=== PATIENT | male | born 1960 | race Caucasian/White ===

== ENCOUNTER → 2017-12-23 13:12 | Outpatient (CLI) | payer OTHER, MEDICAID, SELFPAY | PROVIDERS: PCP Internal Medicine; Visit Provider Internal Medicine Medical Oncology | DX: C61 Malignant neoplasm of prostate (principal) | CPT/HCPCS: 36415; 84153 ==

== ENCOUNTER → 2018-02-18 09:08 | Outpatient (CLI) | payer OTHER, MEDICAID, SELFPAY ==
[2018-02-18 10:36] LABS: Hemoglobin A1C% w Est Avg Glu 5.9 % (4.0-6.0)
== END ==
PROVIDERS: Family Provider Internal Medicine; PCP Internal Medicine; Visit Provider Student in an Organized Health Care Education/Training Program
DX: E11.9 Type 2 diabetes mellitus without complications (principal)
CPT/HCPCS: 36415; 83036

== ENCOUNTER → 2018-03-07 15:03 | Outpatient (CLI) | payer OTHER, MEDICAID, SELFPAY | PROVIDERS: Family Provider Internal Medicine; PCP Internal Medicine; Visit Provider Internal Medicine Medical Oncology | DX: C61 Malignant neoplasm of prostate (principal) | CPT/HCPCS: 36415; 84153 ==

== ENCOUNTER → 2018-05-23 09:20 | Outpatient (CLI) | payer OTHER, MEDICAID, SELFPAY ==
[2018-05-23 10:09] LABS: Add Manual Diff / Slide Review NO; Basophils Percent Auto 0.4 % (0-2); Eosinophils Percent Auto 0.7 % (2-4); Hematocrit 38.2 % (41-53); Hemoglobin 11.9 g/dL (13.5-17.5); Lymphocytes Percent Auto 18.6 % (25-40); Mean Corpuscular HGB Conc 31.1 % (30-36); Mean Corpuscular Volume 67.6 fL (80-100); Monocytes Percent Auto 10.2 % (3-14); Neutrophils Absolute Auto 6400 /uL (3000-5900); Neutrophils Percent Auto 70.1 % (50-75); Platelet Count 250 X10^3/uL (150-400); Red Blood Cell Count 5.66 X10^6/uL (4.5-5.9); Red Cell Distribution Width 19.1 % (11.6-14.8); White Blood Cell Count 9.1 X10^3/uL (4.5-11.0)
[2018-05-23 10:14] LABS: BUN Creatinine Ratio 22.9 (6-22); Blood Urea Nitrogen 16 mg/dL (9-20); Calcium 8.3 mg/dL (8.4-10.2); Carbon Dioxide 26 mmol/L (22-32); Chloride 95 mmol/L (98-107); Estimated Glomerular Filt Rate > 60.0 mL/min (>60); Glucose 132 mg/dL (70-100); HEMOLYSIS < 15 (0-50); Potassium 4.8 mmol/L (3.4-5.1); Sodium 135 mmol/L (137-145)
[2018-05-23 10:22] LABS: B Type Natriuretic Peptide < 100.0 (<100)
[2018-05-23 10:24] LABS: Hemoglobin A1C% w Est Avg Glu 5.8 % (4.0-6.0)
[2018-05-23 10:48] LABS: Anisocytosis 1+; Hypochromasia 2+; Microcytosis 1+
== END ==
PROVIDERS: Family Provider Internal Medicine; PCP Internal Medicine; Visit Provider Internal Medicine
DX: I48.2 Chronic atrial fibrillation (principal); E11.9 Type 2 diabetes mellitus without complications; I50.32 Chronic diastolic (congestive) heart failure
CPT/HCPCS: 36415; 80048; 83036; 83880; 85025

== ENCOUNTER → 2018-06-15 09:37 | Outpatient (CLI) | payer OTHER, MEDICAID, SELFPAY | PROVIDERS: Family Provider Internal Medicine; PCP Internal Medicine; Visit Provider Internal Medicine Medical Oncology | DX: C61 Malignant neoplasm of prostate (principal) | CPT/HCPCS: 36415; 84153 ==

== ENCOUNTER → 2018-06-27 09:14 | Outpatient (CLI) | payer OTHER, MEDICAID, SELFPAY ==
[2018-06-27 09:38] LABS: Add Manual Diff / Slide Review NO; Basophils Percent Auto 0.5 % (0-2); Eosinophils Percent Auto 0.8 % (2-4); Hematocrit 38.5 % (41-53); Hemoglobin 11.8 g/dL (13.5-17.5); Lymphocytes Percent Auto 18.1 % (25-40); Mean Corpuscular HGB Conc 30.7 % (30-36); Mean Corpuscular Hemoglobin 20.9 PG (26-34); Monocytes Percent Auto 11.2 % (3-14); Neutrophils Absolute Auto 6400 /uL (3000-5900); Neutrophils Percent Auto 69.4 % (50-75); Platelet Count 274 X10^3/uL (150-400); Red Blood Cell Count 5.66 X10^6/uL (4.5-5.9); Red Cell Distribution Width 20.1 % (11.6-14.8); White Blood Cell Count 9.3 X10^3/uL (4.5-11.0)
[2018-06-27 10:03] LABS: Hypochromasia 1+; Microcytosis 3+; Ovalocytes 1+
[2018-06-27 10:08] LABS: HEMOLYSIS < 15 (0-50); Iron 26 ug/dL (49-181)
[2018-06-27 10:19] LABS: Percent Iron Saturation 7 % (20-50); Total Iron Binding Capacity 368 ug/dL (261-462); Transferrin 311 mg/dL (206-381)
[2018-06-27 10:41] LABS: Ferritin 3.9 ng/mL (17.9-464)
== END ==
PROVIDERS: Family Provider Internal Medicine; PCP Internal Medicine; Visit Provider Internal Medicine
DX: D50.0 Iron deficiency anemia secondary to blood loss (chronic) (principal)
CPT/HCPCS: 36415; 82728; 83540; 83550; 85025

== ENCOUNTER → 2018-08-17 12:27 | Outpatient (CLI) | payer OTHER, MEDICAID, SELFPAY ==
--- NOTE | 2018-08-17 | DI.US.S_ITS ---
PROCEDURE: US PERIPH VENOUS LOW EXTREM RT INDICATIONS: RIGHT LOWER EXTREMITY PAIN AND SWELLING TECHNIQUE: Real-time imaging, as well as color and pulse Doppler interrogation, were performed of the lower extremity deep veins from the inguinal ligament to the popliteal fossa. COMPARISON: None. FINDINGS: The deep veins are normally compressible, and free of intraluminal thrombus. Color and pulse Doppler demonstrate normal phasic intraluminal flow. There is normal augmentation response to distal compression maneuver. IMPRESSION: No evidence for deep venous thrombosis. Dictated by: Rick Kong M.D. on 08/17/2018 at 15:01 Approved by: Rick Kong M.D. on 08/17/2018 at 15:01
== END ==
PROVIDERS: Family Provider Internal Medicine; PCP Internal Medicine; Visit Provider Internal Medicine
DX: M79.604 Pain in right leg (principal); M79.89 Other specified soft tissue disorders
CPT/HCPCS: 93971

== ENCOUNTER → 2018-08-31 10:04 | Outpatient (CLI) | payer OTHER, MEDICAID, SELFPAY ==
[2018-08-31 10:37] LABS: Add Manual Diff / Slide Review NO; Basophils Absolute Auto 0 /uL (0-100); Basophils Percent Auto 0.4 % (0-2); Eosinophils Absolute Auto 100 /uL (0-450); Eosinophils Percent Auto 0.9 % (2-4); Hematocrit 38.5 % (41-53); Hemoglobin 11.9 g/dL (13.5-17.5); Lymphocytes Absolute Auto 1300 /uL (1100-4500); Lymphocytes Percent Auto 14.8 % (25-40); Mean Corpuscular HGB Conc 30.8 % (30-36); Mean Corpuscular Hemoglobin 20.9 PG (26-34); Mean Corpuscular Volume 67.9 fL (80-100); Monocytes Absolute Auto 1000 /uL (0-900); Monocytes Percent Auto 11.6 % (3-14); Neutrophils Absolute Auto 6200 /uL (1500-7000); Neutrophils Percent Auto 72.3 % (50-75); Platelet Count 291 X10^3/uL (150-400); Red Blood Cell Count 5.67 X10^6/uL (4.5-5.9); Red Cell Distribution Width 21.5 % (11.6-14.8); White Blood Cell Count 8.6 X10^3/uL (4.5-11.0)
[2018-08-31 10:47] LABS: HEMOLYSIS < 15 (0-50); Iron 28 ug/dL (49-181)
[2018-08-31 10:57] LABS: Percent Iron Saturation 7 % (20-50); Total Iron Binding Capacity 384 ug/dL (261-462); Transferrin 282 mg/dL (206-381)
[2018-08-31 11:18] LABS: Ferritin 5.6 ng/mL (17.9-464)
[2018-08-31 11:24] LABS: Microcytosis 2+
[2018-08-31 11:25] LABS: Anisocytosis 3+; Ovalocytes 1+
[2018-08-31 11:27] LABS: Hypochromasia 1+
== END ==
PROVIDERS: Family Provider Internal Medicine; PCP Internal Medicine; Visit Provider Internal Medicine Medical Oncology
DX: D50.0 Iron deficiency anemia secondary to blood loss (chronic) (principal); C61 Malignant neoplasm of prostate
CPT/HCPCS: 36415; 82728; 83540; 83550; 84153; 85025

== ENCOUNTER → 2018-09-12 11:01 | Outpatient (CLI) | payer OTHER, MEDICAID, SELFPAY ==
[2018-09-12 11:39] LABS: Add Manual Diff / Slide Review NO; Basophils Absolute Auto 0 /uL (0-100); Basophils Percent Auto 0.5 % (0-2); Eosinophils Absolute Auto 100 /uL (0-450); Eosinophils Percent Auto 1.2 % (2-4); Hematocrit 39.9 % (41-53); Hemoglobin 12.5 g/dL (13.5-17.5); Lymphocytes Absolute Auto 1200 /uL (1100-4500); Lymphocytes Percent Auto 18.3 % (25-40); Mean Corpuscular HGB Conc 31.3 % (30-36); Mean Corpuscular Hemoglobin 21.4 PG (26-34); Mean Corpuscular Volume 68.3 fL (80-100); Monocytes Absolute Auto 800 /uL (0-900); Monocytes Percent Auto 11.8 % (3-14); Neutrophils Absolute Auto 4600 /uL (1500-7000); Neutrophils Percent Auto 68.2 % (50-75); Platelet Count 277 X10^3/uL (150-400); Red Blood Cell Count 5.83 X10^6/uL (4.5-5.9); Red Cell Distribution Width 21.6 % (11.6-14.8); White Blood Cell Count 6.8 X10^3/uL (4.5-11.0)
[2018-09-12 12:08] LABS: Anisocytosis 2+; Ovalocytes 1+; Poikilocytosis 1+
[2018-09-12 12:57] LABS: HEMOLYSIS < 15 (0-50); Iron 31 ug/dL (49-181)
[2018-09-12 12:59] LABS: Estimated Glomerular Filt Rate > 60.0 mL/min (>60)
[2018-09-12 13:07] LABS: Percent Iron Saturation 8 % (20-50); Total Iron Binding Capacity 368 ug/dL (261-462); Transferrin 279 mg/dL (206-381)
== END ==
PROVIDERS: Family Provider Internal Medicine; PCP Internal Medicine; Visit Provider Pharmacist
DX: D50.0 Iron deficiency anemia secondary to blood loss (chronic) (principal); Z79.01 Long term (current) use of anticoagulants
CPT/HCPCS: 36415; 82565; 83540; 83550; 85025

== ENCOUNTER → 2018-09-15 09:54 | Outpatient (CLI) | payer OTHER, MEDICAID, SELFPAY ==
[2018-09-15 11:11] LABS: Basophils Absolute Auto 100 /uL (0-100); Basophils Percent Auto 0.6 % (0-2); Eosinophils Absolute Auto 0 /uL (0-450); Eosinophils Percent Auto 0.5 % (2-4); Hematocrit 40.7 % (41-53); Hemoglobin 12.9 g/dL (13.5-17.5); Lymphocytes Absolute Auto 1400 /uL (1100-4500); Lymphocytes Percent Auto 15.8 % (25-40); Mean Corpuscular HGB Conc 31.6 % (30-36); Mean Corpuscular Hemoglobin 21.9 PG (26-34); Mean Corpuscular Volume 69.1 fL (80-100); Monocytes Absolute Auto 800 /uL (0-900); Monocytes Percent Auto 9.4 % (3-14); Neutrophils Absolute Auto 6700 /uL (1500-7000); Neutrophils Percent Auto 73.7 % (50-75); Platelet Count 247 X10^3/uL (150-400); Red Cell Distribution Width 21.9 % (11.6-14.8)
[2018-09-15 11:14] LABS: Add Manual Diff / Slide Review SLIDE REVIEW
[2018-09-15 11:55] LABS: Estimated Glomerular Filt Rate > 60.0 mL/min (>60)
[2018-09-15 11:56] LABS: Hypochromasia 2+; Microcytosis 1+
[2018-09-15 11:57] LABS: Anisocytosis 3+; Ovalocytes 1+
== END ==
PROVIDERS: PCP Internal Medicine; Visit Provider Pharmacist
DX: Z79.01 Long term (current) use of anticoagulants (principal)
CPT/HCPCS: 36415; 82565; 85025

== ENCOUNTER → 2018-09-19 09:50 | Outpatient (CLI) | payer OTHER, MEDICAID, SELFPAY ==
[2018-09-19 10:37] LABS: Estimated Glomerular Filt Rate > 60.0 mL/min (>60)
[2018-09-19 11:05] LABS: Add Manual Diff / Slide Review NO; Basophils Absolute Auto 0 /uL (0-100); Basophils Percent Auto 0.5 % (0-2); Eosinophils Absolute Auto 100 /uL (0-450); Eosinophils Percent Auto 0.8 % (2-4); Hematocrit 40.8 % (41-53); Hemoglobin 12.8 g/dL (13.5-17.5); Lymphocytes Absolute Auto 1600 /uL (1100-4500); Lymphocytes Percent Auto 19.4 % (25-40); Mean Corpuscular HGB Conc 31.3 % (30-36); Mean Corpuscular Hemoglobin 21.7 PG (26-34); Mean Corpuscular Volume 69.4 fL (80-100); Monocytes Absolute Auto 800 /uL (0-900); Monocytes Percent Auto 9.4 % (3-14); Neutrophils Absolute Auto 5600 /uL (1500-7000); Neutrophils Percent Auto 69.9 % (50-75); Platelet Count 284 X10^3/uL (150-400); Red Blood Cell Count 5.88 X10^6/uL (4.5-5.9); Red Cell Distribution Width 21.9 % (11.6-14.8)
[2018-09-19 12:06] LABS: Microcytosis 1+; Ovalocytes 1+
== END ==
PROVIDERS: PCP Internal Medicine; Visit Provider Internal Medicine Cardiovascular Disease
DX: Z79.01 Long term (current) use of anticoagulants (principal)
CPT/HCPCS: 36415; 82565; 85025

== ENCOUNTER → 2018-09-23 09:45 | Outpatient (CLI) | payer OTHER, MEDICAID, SELFPAY ==
[2018-09-23 10:32] LABS: Add Manual Diff / Slide Review NO; Basophils Absolute Auto 0 /uL (0-100); Basophils Percent Auto 0.3 % (0-2); Eosinophils Absolute Auto 0 /uL (0-450); Hematocrit 42.9 % (41-53); Hemoglobin 13.3 g/dL (13.5-17.5); Lymphocytes Absolute Auto 1300 /uL (1100-4500); Lymphocytes Percent Auto 10.1 % (25-40); Mean Corpuscular HGB Conc 30.9 % (30-36); Mean Corpuscular Hemoglobin 21.5 PG (26-34); Mean Corpuscular Volume 69.4 fL (80-100); Monocytes Absolute Auto 1800 /uL (0-900); Monocytes Percent Auto 13.2 % (3-14); Neutrophils Absolute Auto 10200 /uL (1500-7000); Neutrophils Percent Auto 76.4 % (50-75); Platelet Count 324 X10^3/uL (150-400); Red Blood Cell Count 6.18 X10^6/uL (4.5-5.9); Red Cell Distribution Width 21.7 % (11.6-14.8); White Blood Cell Count 13.4 X10^3/uL (4.5-11.0)
[2018-09-23 10:43] LABS: Alanine Aminotransferase 39 IU/L (21-72); Albumin 4.2 g/dL (3.5-5.0); Albumin Globulin Ratio 1.2 (1.0-2.8); Alkaline Phosphatase 96 U/L (38-126); Aspartate Aminotransferase 21 IU/L (17-59); BUN Creatinine Ratio 18.6 (6-22); Bilirubin Total 0.8 mg/dL (0.2-1.3); Blood Urea Nitrogen 13 mg/dL (9-20); Calcium 8.7 mg/dL (8.4-10.2); Carbon Dioxide 26 mmol/L (22-32); Chloride 91 mmol/L (98-107); Estimated Glomerular Filt Rate > 60.0 mL/min (>60); Globulin 3.5 g/dL (1.7-4.1); Glucose 173 mg/dL (70-100); HEMOLYSIS < 15 (0-50); Potassium 4.4 mmol/L (3.4-5.1); Sodium 130 mmol/L (137-145); Total Protein 7.7 g/dL (6.3-8.2)
[2018-09-23 10:58] LABS: Anisocytosis 3+
[2018-09-23 11:00] LABS: Microcytosis 2+; Ovalocytes 2+; Poikilocytosis 3+
[2018-09-23 11:01] LABS: Hypochromasia 2+; Schistocytes 1+; Target Cells 1+
[2018-09-23 11:13] LABS: Prostate Specific Antigen 69.8 ng/mL (0.10-4.00)
== END ==
PROVIDERS: Visit Provider Nurse Practitioner Gerontology
DX: C61 Malignant neoplasm of prostate (principal)
CPT/HCPCS: 36415; 80053; 84153; 85025

== ENCOUNTER → 2018-09-26 09:57 | Outpatient (CLI) | payer OTHER, MEDICAID, SELFPAY ==
[2018-09-26 11:33] LABS: Add Manual Diff / Slide Review NO; Basophils Absolute Auto 0 /uL (0-100); Basophils Percent Auto 0.4 % (0-2); Eosinophils Absolute Auto 100 /uL (0-450); Hematocrit 35.8 % (41-53); Hemoglobin 11.3 g/dL (13.5-17.5); Lymphocytes Absolute Auto 1100 /uL (1100-4500); Lymphocytes Percent Auto 15.3 % (25-40); Mean Corpuscular HGB Conc 31.6 % (30-36); Mean Corpuscular Volume 69.6 fL (80-100); Monocytes Absolute Auto 700 /uL (0-900); Monocytes Percent Auto 10.2 % (3-14); Neutrophils Absolute Auto 5200 /uL (1500-7000); Neutrophils Percent Auto 73.1 % (50-75); Platelet Count 306 X10^3/uL (150-400); Red Blood Cell Count 5.14 X10^6/uL (4.5-5.9); Red Cell Distribution Width 21.2 % (11.6-14.8); White Blood Cell Count 7.1 X10^3/uL (4.5-11.0)
[2018-09-26 11:38] LABS: Alanine Aminotransferase 33 IU/L (21-72); Albumin 3.5 g/dL (3.5-5.0); Albumin Globulin Ratio 1.1 (1.0-2.8); Alkaline Phosphatase 83 U/L (38-126); Aspartate Aminotransferase 22 IU/L (17-59); BUN Creatinine Ratio 27.1 (6-22); Bilirubin Total 0.3 mg/dL (0.2-1.3); Blood Urea Nitrogen 19 mg/dL (9-20); Calcium 8.4 mg/dL (8.4-10.2); Carbon Dioxide 25 mmol/L (22-32); Chloride 91 mmol/L (98-107); Estimated Glomerular Filt Rate > 60.0 mL/min (>60); Globulin 3.2 g/dL (1.7-4.1); Glucose 183 mg/dL (70-100); HEMOLYSIS < 15 (0-50); Potassium 4.6 mmol/L (3.4-5.1); Sodium 128 mmol/L (137-145); Total Protein 6.7 g/dL (6.3-8.2)
[2018-09-26 11:55] LABS: Anisocytosis 3+; Microcytosis 2+
[2018-09-26 11:56] LABS: Hypochromasia 1+; Ovalocytes 2+
[2018-09-26 11:57] LABS: Poikilocytosis 2+
[2018-09-26 12:09] LABS: Prostate Specific Antigen 71.5 ng/mL (0.10-4.00)
== END ==
PROVIDERS: Referring Provider Pharmacist; Visit Provider Internal Medicine Medical Oncology
DX: Z79.01 Long term (current) use of anticoagulants (principal); C61 Malignant neoplasm of prostate
CPT/HCPCS: 36415; 80053; 84153; 85025

== ENCOUNTER → 2018-10-05 11:56 | Outpatient (CLI) | payer OTHER, MEDICAID, SELFPAY ==
[2018-10-05 12:29] LABS: Add Manual Diff / Slide Review YES; Hematocrit 39.3 % (41-53); Hemoglobin 12.1 g/dL (13.5-17.5); Mean Corpuscular HGB Conc 30.9 % (30-36); Mean Corpuscular Hemoglobin 21.6 PG (26-34); Mean Corpuscular Volume 69.9 fL (80-100); Platelet Count 360 X10^3/uL (150-400); Red Blood Cell Count 5.63 X10^6/uL (4.5-5.9); Red Cell Distribution Width 21.3 % (11.6-14.8); White Blood Cell Count 15.3 X10^3/uL (4.5-11.0)
[2018-10-05 12:39] LABS: Alanine Aminotransferase 39 IU/L (21-72); Albumin 3.1 g/dL (3.5-5.0); Albumin Globulin Ratio 1.2 (1.0-2.8); Alkaline Phosphatase 92 U/L (38-126); Aspartate Aminotransferase 21 IU/L (17-59); BUN Creatinine Ratio 23.3 (6-22); Bilirubin Total 0.2 mg/dL (0.2-1.3); Blood Urea Nitrogen 14 mg/dL (9-20); Calcium 8.2 mg/dL (8.4-10.2); Carbon Dioxide 25 mmol/L (22-32); Chloride 93 mmol/L (98-107); Estimated Glomerular Filt Rate > 60.0 mL/min (>60); Globulin 2.6 g/dL (1.7-4.1); Glucose 140 mg/dL (70-100); HEMOLYSIS < 15 (0-50); Potassium 4.6 mmol/L (3.4-5.1); Sodium 129 mmol/L (137-145); Total Protein 5.7 g/dL (6.3-8.2)
[2018-10-05 12:53] LABS: Microcytosis 2+; Neutrophils Absolute Manual 10404 /uL (3000-5900); Total Cells Counted 100
[2018-10-05 12:54] LABS: Polychromasia 1+
== END ==
PROVIDERS: Visit Provider Nurse Practitioner Gerontology
DX: C61 Malignant neoplasm of prostate (principal); Z79.01 Long term (current) use of anticoagulants
CPT/HCPCS: 36415; 80053; 84153; 85025

== ENCOUNTER → 2018-10-11 10:46 | Outpatient (CLI) | payer OTHER, MEDICAID, SELFPAY ==
[2018-10-11 11:56] LABS: Hematocrit 35.5 % (41-53); Hemoglobin 11.4 g/dL (13.5-17.5); Mean Corpuscular Hemoglobin 22.7 PG (26-34); Mean Corpuscular Volume 70.9 fL (80-100); Platelet Count 241 X10^3/uL (150-400); Red Blood Cell Count 5.01 X10^6/uL (4.5-5.9); White Blood Cell Count 12.4 X10^3/uL (4.5-11.0)
[2018-10-11 12:02] LABS: Add Manual Diff / Slide Review YES
[2018-10-11 12:14] LABS: Estimated Glomerular Filt Rate > 60.0 mL/min (>60)
[2018-10-11 12:31] LABS: Neutrophils Absolute Manual 9300 /uL (3000-5900); Total Cells Counted 100
[2018-10-11 12:35] LABS: Anisocytosis 2+; Polychromasia 1+
== END ==
PROVIDERS: Family Provider Internal Medicine Medical Oncology; PCP Internal Medicine; Visit Provider Pharmacist
DX: Z79.01 Long term (current) use of anticoagulants (principal)
CPT/HCPCS: 36415; 82565; 85025

== ENCOUNTER → 2018-10-17 11:26 | Outpatient (CLI) | payer OTHER, MEDICAID, SELFPAY ==
[2018-10-17 12:10] LABS: Add Manual Diff / Slide Review NO; Basophils Absolute Auto 100 /uL (0-100); Basophils Percent Auto 0.7 % (0-2); Eosinophils Absolute Auto 0 /uL (0-450); Eosinophils Percent Auto 0.4 % (2-4); Hematocrit 36.2 % (41-53); Hemoglobin 11.5 g/dL (13.5-17.5); Lymphocytes Absolute Auto 1400 /uL (1100-4500); Lymphocytes Percent Auto 12.1 % (25-40); Mean Corpuscular HGB Conc 31.8 % (30-36); Mean Corpuscular Hemoglobin 23.1 PG (26-34); Mean Corpuscular Volume 72.6 fL (80-100); Monocytes Absolute Auto 1300 /uL (0-900); Monocytes Percent Auto 11.2 % (3-14); Neutrophils Absolute Auto 8500 /uL (1500-7000); Neutrophils Percent Auto 75.6 % (50-75); Platelet Count 266 X10^3/uL (150-400); Red Blood Cell Count 4.99 X10^6/uL (4.5-5.9); White Blood Cell Count 11.3 X10^3/uL (4.5-11.0)
[2018-10-17 12:25] LABS: Alanine Aminotransferase 30 IU/L (21-72); Albumin 3.7 g/dL (3.5-5.0); Albumin Globulin Ratio 1.3 (1.0-2.8); Alkaline Phosphatase 91 U/L (38-126); Aspartate Aminotransferase 18 IU/L (17-59); BUN Creatinine Ratio 23.3 (6-22); Bilirubin Total 0.3 mg/dL (0.2-1.3); Blood Urea Nitrogen 14 mg/dL (9-20); Calcium 8.8 mg/dL (8.4-10.2); Carbon Dioxide 27 mmol/L (22-32); Chloride 94 mmol/L (98-107); Estimated Glomerular Filt Rate > 60.0 mL/min (>60); Globulin 2.8 g/dL (1.7-4.1); Glucose 118 mg/dL (70-100); HEMOLYSIS < 15 (0-50); Potassium 4.9 mmol/L (3.4-5.1); Sodium 132 mmol/L (137-145); Total Protein 6.5 g/dL (6.3-8.2)
[2018-10-17 12:56] LABS: Prostate Specific Antigen 52.5 ng/mL (0.10-4.00)
[2018-10-17 13:12] LABS: Hypochromasia 2+
[2018-10-17 13:13] LABS: Anisocytosis 2+; Poikilocytosis 1+
== END ==
PROVIDERS: Family Provider Internal Medicine Medical Oncology; PCP Internal Medicine; Visit Provider Pharmacist
DX: C61 Malignant neoplasm of prostate (principal); Z79.01 Long term (current) use of anticoagulants
CPT/HCPCS: 36415; 80053; 84153; 85025

== ENCOUNTER → 2018-10-24 12:24 | Outpatient (CLI) | payer OTHER, MEDICAID, SELFPAY ==
[2018-10-24 12:51] LABS: Hematocrit 35.5 % (41-53); Hemoglobin 11.1 g/dL (13.5-17.5); Mean Corpuscular HGB Conc 31.2 % (30-36); Mean Corpuscular Hemoglobin 23.2 PG (26-34); Mean Corpuscular Volume 74.5 fL (80-100); Platelet Count 226 X10^3/uL (150-400); Red Blood Cell Count 4.76 X10^6/uL (4.5-5.9); White Blood Cell Count 5.7 X10^3/uL (4.5-11.0)
[2018-10-24 12:56] LABS: Add Manual Diff / Slide Review YES
[2018-10-24 13:08] LABS: Alanine Aminotransferase 29 IU/L (21-72); Albumin 3.5 g/dL (3.5-5.0); Albumin Globulin Ratio 1.5 (1.0-2.8); Alkaline Phosphatase 84 U/L (38-126); Aspartate Aminotransferase 12 IU/L (17-59); BUN Creatinine Ratio 23.3 (6-22); Bilirubin Total 0.3 mg/dL (0.2-1.3); Blood Urea Nitrogen 14 mg/dL (9-20); Calcium 8.4 mg/dL (8.4-10.2); Carbon Dioxide 31 mmol/L (22-32); Chloride 91 mmol/L (98-107); Estimated Glomerular Filt Rate > 60.0 mL/min (>60); Globulin 2.3 g/dL (1.7-4.1); Glucose 147 mg/dL (70-100); HEMOLYSIS < 15 (0-50); Potassium 4.4 mmol/L (3.4-5.1); Sodium 131 mmol/L (137-145); Total Protein 5.8 g/dL (6.3-8.2)
[2018-10-24 13:26] LABS: Neutrophils Absolute Manual 3876 /uL (3000-5900); Nucleated Red Blood Cells 1 #/Diff; Total Cells Counted 100
[2018-10-24 13:35] LABS: Anisocytosis 2+
[2018-10-24 13:36] LABS: Ovalocytes 1+
[2018-10-24 13:37] LABS: Toxic Granulation Present
[2018-10-24 13:38] LABS: Prostate Specific Antigen 50.1 ng/mL (0.10-4.00)
== END ==
PROVIDERS: Family Provider Internal Medicine; PCP Internal Medicine; Visit Provider Internal Medicine Medical Oncology
DX: C61 Malignant neoplasm of prostate (principal)
CPT/HCPCS: 36415; 80053; 84153; 85025

== ENCOUNTER 2018-10-27 20:13 | Observation (INO) | payer OTHER, MEDICAID, SELFPAY ==
[2018-10-27 20:15] VITALS: BP 103/65; PULSE 99; RESP 20; TEMP 37.6; O2SAT 99
--- NOTE | 2018-10-27 20:33 | DI.RAD.S_ITS ---
PROCEDURE: XR CHEST 1V INDICATIONS: cough fever TECHNIQUE: One view of the chest was acquired. COMPARISON: [facility], , CHEST 1 VIEW, 05/05/2007, 14:24. FINDINGS: Surgical changes and devices: None. Lungs and pleura: Lungs are clear. Stable eventration of the right hemidiaphragm. No pleural effusions or pneumothorax. Mediastinum: Mediastinal contours appear normal. Heart size is normal. Bones and chest wall: No suspicious bony lesions. Overlying soft tissues appear unremarkable. IMPRESSION: Stable examination of the chest without acute cardiopulmonary abnormalities or focal airspace disease. Dictated by: Tolu Harris M.D. on 10/27/2018 at 22:13 Approved by: Tolu Harris M.D. on 10/27/2018 at 22:14
--- NOTE | 2018-10-27 20:39 | ED.FEVER ---
HPI - Fever General Chief Complaint: Fever Stated Complaint: FEVER, CANCER PATIENT Time Seen by Provider: 10/27/18 20:22 Source: patient Mode of arrival: ambulatory Limitations: no limitations History of Present Illness HPI Narrative: Patient is a 58-year-old male who presents with fever. He is currently receiving chemotherapy for prostate cancer at [facility]. He received chemotherapy on the 19 of October. He had blood work done 4 days ago and was not neutropenic at that time. He was seen by his PCP today with cough and sore throat. He has had sore throat for the last 3 days all watery eyes runny nose. He denies any shortness of breath with exertion or at rest. No chest pain or heart palpitations, but does have hisotry of atrial fibrillation. He said that he was tested for influenza at the office today and it was negative. He was started on doxycycline for possible pneumonia but no x-ray was done. He has denies any productive cough. The cough has gotten worse over last 2 days. He is on Lovenox injections for pulmonary embolism diagnosed in August. MD complaint: fever and weakness Related Data Home Medications Medication Instructions Recorded Confirmed allopurinol 300 mg tablet 300 mg PO DAILY 04/28/18 10/28/18 aspirin 81 mg chewable tablet 81 mg PO DAILY 04/28/18 10/28/18 digoxin 250 mcg tablet 0.25 mg PO DAILY 04/28/18 10/28/18 gabapentin 600 mg tablet 300 mg PO DAILY 04/28/18 10/28/18 lisinopril 20 mg tablet 10 mg PO DAILY 04/28/18 10/28/18 Respironics Dreamstation BIPAP #1 ea 10/27/18 10/27/18 leuprolide (6 month) IM 10/27/18 10/27/18 albuterol sulfate 2 puff INHALATION Q4-6H PRN 10/28/18 10/28/18 calcium carbonate [Calcium 500] 1,000 mg PO DAILY 10/28/18 10/28/18 dexamethasone 4 mg PO Q12H 10/28/18 10/28/18 enoxaparin [Lovenox] 100 mg SUBCUT Q12H 10/28/18 10/28/18 ferrous gluconate 324 mg PO DAILY 10/28/18 10/28/18 furosemide 40 mg PO DAILY 10/28/18 10/28/18 hydrocodone-acetaminophen 1 tab PO Q12H 10/28/18 10/28/18 levofloxacin [Levaquin] 750 mg PO DAILY 10/28/18 10/28/18 metformin 500 mg PO BID 10/28/18 10/28/18 metoprolol succinate 200 mg PO BID 10/28/18 10/28/18 metoprolol succinate [Toprol XL] 200 mg PO BID 10/28/18 10/28/18 multivitamin 1 tab PO DAILY 10/28/18 10/28/18 ondansetron HCl 8 mg PO BID PRN 10/28/18 10/28/18 prochlorperazine maleate 10 mg PO Q6-8H 10/28/18 10/28/18 tramadol 50 mg PO TID PRN 10/28/18 10/28/18 Allergies Allergy/AdvReac Type Severity Reaction Status Date / Time No Known Drug Allergies Allergy Verified 10/27/18 20:20 Review of Systems Review of Systems ROS Unobtainable: All systems reviewed & are unremarkable except as noted in HPI and below Constitutional Denies chills, Reports fatigue, Reports fever(s) and Denies headache(s) Eyes Denies change in vision, Denies eye discharge, Denies irritation and Denies loss of vision ENT Ears, Nose, Mouth, and Throat: Denies headache(s), Reports post nasal drip, Denies sinus pressure and Reports sore throat Cardiovascular Denies chest pain, Denies irregular heart rhythm, Denies lightheadedness, Denies palpitations and Denies orthopnea Genitourinary Denies hematuria, Denies flank pain, Denies urinary incontinence and Denies urinary urgency Musculoskeletal Denies back pain, Denies muscle weakness, Denies numbness and Denies tingling Integumentary/Breasts Denies pruritus, Denies erythema, Denies rash and Denies wounds Neurologic Denies headache(s), Denies loss of vision, Denies numbness and Denies tingling Endocrine Reports fatigue and Denies palpitations [facility] Medical History Fatigue (Chronic) Primary insomnia (Chronic) Obstructive sleep apnea of adult (Chronic) Pulmonary embolism (Acute) Atrial fibrillation with controlled ventricular rate (Chronic) Diabetes type 2, controlled (Chronic) Gout (Chronic) Prostate cancer (Chronic) Social History details: single, lives with ex- in [place] household members: significant other lives independently: No caregiver/support person: Yes pets and animals: Yes (3 cats, couple jaquan) occupational status: unemployed Smoking Status: Former smoker alcohol intake: current Social History details: single, lives with ex- in [place] household members: significant other lives independently: No caregiver/support person: Yes pets and animals: Yes (3 cats, [facility]) occupational status: unemployed Smoking Status: Former smoker alcohol intake: current Exam Initial Vital Signs Initial Vital Signs: Vital Signs Temperature 99.7 F H 10/27/18 20:15 Pulse Rate 99 H 10/27/18 20:15 Respiratory Rate 20 10/27/18 20:15 Blood Pressure 103/65 10/27/18 20:15 Pulse Oximetry 99 10/27/18 20:15 GENERAL: Alert weak elderly male no acute distress appears to not feel well HEENT: Head atraumatic,EOMI, pupils reactive, face symmetric, no vertebral tenderness full range of motion. extremely hard of hearing PHARYNX: Mild erythema no uvula swelling no tonsillar exudate CARDIOVASCULAR: Irregularly-irregular no murmurs RESPIRATORY: Slightly decreased bilaterally but no respiratory distress speaks in full sentences ABDOMEN: Soft, nontender. Normoactive bowel sounds all 4 quadrants. No guarding or rebound. EXTREMITIES: Normal range of motion, no clubbing or edema. Neurovascularly intact NEUROLOGICAL: Alert and oriented x4.Normal gait and speech. Cranial nerves II through XII grossly intact. SKIN: Warm, dry, no laceration, no petechiae, no rashes or lesions. Course Orders Ordered: ED Orders 10/27/18 20:33 XR chest 1V Stat 10/27/18 20:56 Complete Blood Count AUTO DIFF Stat Comprehensive Metabolic Panel Stat Influenza A and B by PCR Rapid Stat Lactate (Lactic Acid) Stat Partial Thromboplastin Time Stat Procalcitonin Stat Prothrombin Time INR Stat 10/27/18 21:10 Blood Culture Stat 10/27/18 22:30 Urinalysis and Microscopic Stat 10/27/18 23:29 EKG-12 Lead Stat 10/28/18 01:50 Consult to Dietitian, Adult Routine 10/28/18 02:20 Respiratory Panel (Film Array) Stat 10/28/18 08:00 Basic Metabolic Panel Stat Complete Blood Count AUTO DIFF Stat Acetaminophen (Tylenol) 650 mg PO Q6HR PRN PRN Reason: As Needed for Fever/Mild Pain Allopurinol (Zyloprim) 300 mg PO DAILY [facility] Aspirin (Aspirin Chew) 81 mg PO DAILY [facility] Calcium Carbonate (Tums) 1,000 mg PO Q4HR PRN PRN Reason: Dyspepsia Digoxin (Lanoxin) 0.25 mg PO DAILY [facility] Docusate Sodium (Colace) 100 mg PO BID PRN PRN Reason: Constipation Enoxaparin Sodium (Lovenox) 100 mg SUBCUT BID [facility] Last Admin: 10/27/18 21:46 Dose: 100 mg Enoxaparin Sodium (Lovenox) 100 mg SUBCUT Q12H [facility] Gabapentin (Neurontin) 300 mg PO DAILY [facility] Sodium Chloride (Normal Saline 0.9%) 1,000 mls @ 200 mls/hr IV CONT [facility] Last Infusion: 10/28/18 00:47 Dose: 0 mls/hr Admin: 10/27/18 20:59 Dose: 200 mls/hr Sodium Chloride (Normal Saline 0.9%) 1,000 mls @ 100 mls/hr IV CONT [facility] Metformin HCl (Glucophage) 500 mg PO BID [facility] Multivitamins (Tab-A-Bev) 1 tab PO DAILY [facility] Non-Formulary Medication (Calcium Carbonate [Calcium 500]) 1,000 mg PO DAILY [facility] Ondansetron HCl (Zofran) 4 mg IV Q8HR PRN PRN Reason: Nausea And Vomiting Sodium Chloride (Normal Saline 0.9% Flush) 10 ml IV PRN PRN PRN Reason: Flush Tramadol HCl (Ultram 50mg Prepack) bottle MISC TID PRN PRN Reason: Pain, Moderate (4-6) Discontinued Medications Enoxaparin Sodium (Lovenox) 100 mg SUBCUT NOW ONE Stop: 10/28/18 21:12 Levofloxacin (Levaquin) 750 mg in 150 mls @ 100 mls/hr IV NOW ONE Stop: 10/27/18 23:56 Last Infusion: 10/28/18 00:16 Dose: 100 mls/hr Admin: 10/27/18 22:35 Dose: 100 mls/hr Consultations Consultation #1: hospitalist George, updated on patient's symptoms test results agrees with admission. Time: 00:03 Vital Signs - 8 hr 10/27/18 20:15 10/27/18 22:55 10/27/18 23:25 Temperature 99.7 F H 100.4 F H Pulse Rate 99 H 106 H Respiratory Rate 20 Blood Pressure 103/65 Blood Pressure [Right Arm] 106/67 Pulse Oximetry 99 95 10/28/18 00:37 10/28/18 01:20 Temperature 100.6 F H Pulse Rate 104 H 106 H Respiratory Rate 18 Blood Pressure 102/69 Blood Pressure [Right Arm] 101/61 Pulse Oximetry 95 MDM - Fever Lab Data Attestation: I reviewed the patient's lab results. Result diagrams: 10/27/18 20:56 10/27/18 20:56 Lab Results 10/27/18 10/27/18 10/27/18 Range/Units 20:56 20:56 20:56 WBC 21.2 H (4.5-11.0) X10^3/uL RBC 4.84 (4.5-5.9) X10^6/uL Hgb 11.3 L (13.5-17.5) g/dL Hct 35.1 L (41-53) % MCV 72.6 L (80-100) fL MCH 23.4 L (26-34) PG MCHC 32.2 (30-36) % RDW 23.6 H (11.6-14.8) % Plt Count 297 (150-400) X10^3/uL Neut % (Auto) Not Reportable Lymph % (Auto) Not Reportable [place] % (Auto) Not Reportable Eos % (Auto) Not Reportable Baso % (Auto) Not Reportable Lymph # (Auto) Not Reportable [place] # (Auto) Not Reportable Baso # (Auto) Not Reportable Total Counted 100 Seg Neutrophils % 82.0 H (38-70) % Lymphocytes % (Manual) 6.0 L (25-45) % Atypical Lymphs % 1.0 H ( - 0) % Monocytes % (Manual) 8.0 (2-11) % Metamyelocytes % 3.0 H (-0) % Neutrophils # (Manual) 24385 H (2679-8293) /uL Smudge Cells 1+ H RBC Morphology See below Hypochromasia 2+ H Poikilocytosis 1+ H Anisocytosis 2+ H Target Cells 1+ H PT 13.7 H (10.1-12.7) SECONDS INR 1.2 (0.9-1.3) APTT 34 (26.4-36.2) SECONDS Sodium (137-145) mmol/L Potassium (3.4-5.1) mmol/L Chloride (98-107) mmol/L Carbon Dioxide (22-32) mmol/L BUN (9-20) mg/dL Creatinine (0.66-1.25) mg/dL Estimated GFR (>60) mL/min BUN/Creatinine Ratio (6-22) Glucose (70-100) mg/dL Lactate (0.7-2.1) mmol/L Calcium (8.4-10.2) mg/dL Total Bilirubin (0.2-1.3) mg/dL AST (17-59) IU/L ALT (21-72) IU/L Alkaline Phosphatase (38-126) U/L Total Protein (6.3-8.2) g/dL Albumin (3.5-5.0) g/dL Globulin (1.7-4.1) g/dL Albumin/Globulin Ratio (1.0-2.8) Procalcitonin < 0.05 (<0.5) ng/mL Urine Color Urine Appearance Urine pH (4.5-8.0) Ur Specific [place] (1.000-1.035) Urine Protein (Negative) Urine Glucose (UA) (Negative) g/dL Urine Ketones (NEGATIVE) Urine Occult Blood (Negative) Urine Nitrate (Negative) Urine Bilirubin (NEGATIVE) Urine Urobilinogen (0.2) E.U./dL Ur Leukocyte Esterase (NEGATIVE) Urine RBC (0-5/HPF) Urine WBC (0-5/HPF) Urine Bacteria (None) Ur Culture Indicated? Micro UA Comment Influenza A & B (PCR) (Negative) 10/27/18 10/27/18 10/27/18 Range/Units 20:56 20:56 20:56 WBC (4.5-11.0) X10^3/uL RBC (4.5-5.9) X10^6/uL Hgb (13.5-17.5) g/dL Hct (41-53) % MCV (80-100) fL MCH (26-34) PG MCHC (30-36) % RDW (11.6-14.8) % Plt Count (150-400) X10^3/uL Neut % (Auto) Lymph % (Auto) [place] % (Auto) Eos % (Auto) Baso % (Auto) Lymph # (Auto) [place] # (Auto) Baso # (Auto) Total Counted Seg Neutrophils % (38-70) % Lymphocytes % (Manual) (25-45) % Atypical Lymphs % ( - 0) % Monocytes % (Manual) (2-11) % Metamyelocytes % (-0) % Neutrophils # (Manual) (7576-4384) /uL Smudge Cells RBC Morphology Hypochromasia Poikilocytosis Anisocytosis Target Cells PT (10.1-12.7) SECONDS INR (0.9-1.3) APTT (26.4-36.2) SECONDS Sodium 129 L (137-145) mmol/L Potassium 4.0 (3.4-5.1) mmol/L Chloride 94 L (98-107) mmol/L Carbon Dioxide 25 (22-32) mmol/L BUN 14 (9-20) mg/dL Creatinine 0.60 L (0.66-1.25) mg/dL Estimated GFR > 60.0 (>60) mL/min BUN/Creatinine Ratio 23.3 H (6-22) Glucose 120 H (70-100) mg/dL Lactate 2.0 (0.7-2.1) mmol/L Calcium 8.0 L (8.4-10.2) mg/dL Total Bilirubin 0.3 (0.2-1.3) mg/dL AST 15 L (17-59) IU/L ALT 30 (21-72) IU/L Alkaline Phosphatase 86 (38-126) U/L Total Protein 5.8 L (6.3-8.2) g/dL Albumin 3.3 L (3.5-5.0) g/dL Globulin 2.5 (1.7-4.1) g/dL Albumin/Globulin Ratio 1.3 (1.0-2.8) Procalcitonin (<0.5) ng/mL Urine Color Urine Appearance Urine pH (4.5-8.0) Ur Specific [place] (1.000-1.035) Urine Protein (Negative) Urine Glucose (UA) (Negative) g/dL Urine Ketones (NEGATIVE) Urine Occult Blood (Negative) Urine Nitrate (Negative) Urine Bilirubin (NEGATIVE) Urine Urobilinogen (0.2) E.U./dL Ur Leukocyte Esterase (NEGATIVE) Urine RBC (0-5/HPF) Urine WBC (0-5/HPF) Urine Bacteria (None) Ur Culture Indicated? Micro UA Comment Influenza A & B (PCR) Negative (Negative) 10/27/18 Range/Units 22:30 WBC (4.5-11.0) X10^3/uL RBC (4.5-5.9) X10^6/uL Hgb (13.5-17.5) g/dL Hct (41-53) % MCV (80-100) fL MCH (26-34) PG MCHC (30-36) % RDW (11.6-14.8) % Plt Count (150-400) X10^3/uL Neut % (Auto) Lymph % (Auto) [place] % (Auto) Eos % (Auto) Baso % (Auto) Lymph # (Auto) [place] # (Auto) Baso # (Auto) Total Counted Seg Neutrophils % (38-70) % Lymphocytes % (Manual) (25-45) % Atypical Lymphs % ( - 0) % Monocytes % (Manual) (2-11) % Metamyelocytes % (-0) % Neutrophils # (Manual) (7561-2971) /uL Smudge Cells RBC Morphology Hypochromasia Poikilocytosis Anisocytosis Target Cells PT (10.1-12.7) SECONDS INR (0.9-1.3) APTT (26.4-36.2) SECONDS Sodium (137-145) mmol/L Potassium (3.4-5.1) mmol/L Chloride (98-107) mmol/L Carbon Dioxide (22-32) mmol/L BUN (9-20) mg/dL Creatinine (0.66-1.25) mg/dL Estimated GFR (>60) mL/min BUN/Creatinine Ratio (6-22) Glucose (70-100) mg/dL Lactate (0.7-2.1) mmol/L Calcium (8.4-10.2) mg/dL Total Bilirubin (0.2-1.3) mg/dL AST (17-59) IU/L ALT (21-72) IU/L Alkaline Phosphatase (38-126) U/L Total Protein (6.3-8.2) g/dL Albumin (3.5-5.0) g/dL Globulin (1.7-4.1) g/dL Albumin/Globulin Ratio (1.0-2.8) Procalcitonin (<0.5) ng/mL Urine Color Yellow Urine Appearance Clear Urine pH 5.5 (4.5-8.0) Ur Specific [place] 1.025 (1.000-1.035) Urine Protein Negative (Negative) Urine Glucose (UA) Trace H (Negative) g/dL Urine Ketones Negative (NEGATIVE) Urine Occult Blood Negative (Negative) Urine Nitrate Negative (Negative) Urine Bilirubin Negative (NEGATIVE) Urine Urobilinogen 0.2 (0.2) E.U./dL Ur Leukocyte Esterase Negative (NEGATIVE) Urine RBC None seen (0-5/HPF) Urine WBC None seen (0-5/HPF) Urine Bacteria None seen (None) Ur Culture Indicated? Cult not indicated Micro UA Comment Microscopic normal Influenza A & B (PCR) (Negative) Point of Care Testing Rapid Strep A Negative Imaging Data Chest x-ray: Radiologist's impression: PROCEDURE: XR CHEST 1V INDICATIONS: cough fever TECHNIQUE: One view of the chest was acquired. COMPARISON: [facility], CHEST 1 VIEW, 05/05/2007, 14:24. FINDINGS: Surgical changes and devices: None. Lungs and pleura: Lungs are clear. Stable eventration of the right hemidiaphragm. No pleural effusions or pneumothorax. Mediastinum: Mediastinal contours appear normal. Heart size is normal. Bones and chest wall: No suspicious bony lesions. Overlying soft tissues appear unremarkable. IMPRESSION: Stable examination of the chest without acute cardiopulmonary abnormalities or focal airspace disease. Dictated by: Tolu Harris M.D. on 10/27/2018 at 22:13 Approved by: Tolu Harris M.D. on 10/27/2018 at 22:14 ECG Data Attestation: I personally reviewed and interpreted this ECG as follows: Prior ECG tracings: not available for review Interpretation: Atrial fibrillation rate [address] depression in precordial leads no ST elevations no priors to compare MDM Narrative Medical decision making narrative: The patient does have a cough overall fatigue and weakness. He has low-grade fever in the ED. Chest x-ray does not show pneumonia however x-ray findings can lag. He has significant increase in white count in the last few days previously 5 today it is 21. Influenza a is again negative. Strep also negative. No meningeal signs. he is empirically treated with Levaquin. Does not appear grossly aseptic lactic acid within normal limits. Blood pressure is on the lower and he is given IV fluids. Heart rate remains controlled. He was due for his Lovenox injection they did not bring his medication to the ED. He is given a shot here in the ED. He has absolutely no chest pain or heart palpitations. At this time I do not think troponin is indicated. He is noted to be in AFib is on monitor and on EKG. Patient has risk factors of current chemotherapy though not neutropenic, is febrile and increasing leukocytosis. Will be placed in hospital for further evaluation and monitoring. Patient also denies any steroids although dexamethasone as listed on his medication as apparently he is not taking it and denies any Neupogen shot. Also based on blood work he was never neutropenic so Neupogen unlikely Discharge Plan Departure Patient Disposition: Admitted As Inpatient Clinical Impression: Fever Qualifiers: Fever type: unspecified Qualified Code(s): R50.9 - Fever, unspecified Discharge Date/Time: 10/28/18 00:48 Interventions: ED Discharge Assessment Last Done: 10/28/18 00:48 Admit Date/Time: 10/28/18 00:02 Admit Provider: Flavio Vazquez
[2018-10-27] MEDS: SODIUM CHLORIDE 0.9% 1,000 ML 200 ML IV (20:59)
[2018-10-27 21:12] LABS: INR 1.2 (0.9-1.3); Prothrombin Time 13.7 SECONDS (10.1-12.7)
[2018-10-27 21:15] LABS: PTT Partial Thromboplastin Tim 34 SECONDS (26.4-36.2)
[2018-10-27 21:20] LABS: Influenza A and B by PCR Rapid Negative (Negative)
[2018-10-27 21:21] LABS: Alanine Aminotransferase 30 IU/L (21-72); Albumin 3.3 g/dL (3.5-5.0); Albumin Globulin Ratio 1.3 (1.0-2.8); Alkaline Phosphatase 86 U/L (38-126); Aspartate Aminotransferase 15 IU/L (17-59); BUN Creatinine Ratio 23.3 (6-22); Bilirubin Total 0.3 mg/dL (0.2-1.3); Blood Urea Nitrogen 14 mg/dL (9-20); Carbon Dioxide 25 mmol/L (22-32); Chloride 94 mmol/L (98-107); Estimated Glomerular Filt Rate > 60.0 mL/min (>60); Globulin 2.5 g/dL (1.7-4.1); Glucose 120 mg/dL (70-100); HEMOLYSIS < 15 (0-50); Sodium 129 mmol/L (137-145); Total Protein 5.8 g/dL (6.3-8.2)
[2018-10-27 21:28] LABS: Hematocrit 35.1 % (41-53); Hemoglobin 11.3 g/dL (13.5-17.5); Mean Corpuscular HGB Conc 32.2 % (30-36); Mean Corpuscular Hemoglobin 23.4 PG (26-34); Mean Corpuscular Volume 72.6 fL (80-100); Platelet Count 297 X10^3/uL (150-400); Red Blood Cell Count 4.84 X10^6/uL (4.5-5.9); Red Cell Distribution Width 23.6 % (11.6-14.8); White Blood Cell Count 21.2 X10^3/uL (4.5-11.0)
[2018-10-27 21:29] LABS: Add Manual Diff / Slide Review YES
[2018-10-27 21:41] LABS: Procalcitonin < 0.05 ng/mL (<0.5)
[2018-10-27] MEDS: ENOXAPARIN 100 MG/ML SYRINGE SUBCUT (21:46)
[2018-10-27 21:59] LABS: Anisocytosis 2+; Neutrophils Absolute Manual 17384 /uL (3000-5900); Total Cells Counted 100
[2018-10-27 22:00] LABS: Hypochromasia 2+; Poikilocytosis 1+; Smudge Cells 1+; Target Cells 1+
[2018-10-27] MEDS: levoFLOXacin 750 MG/150 ML PIGGYBACK 100 MG IV (22:35)
[2018-10-27 22:55] VITALS: BP 106/67; PULSE 106; O2SAT 95
[2018-10-27 22:59] LABS: Bacteria Urine None Seen; RBC Urine None Seen (0-5/HPF); WBC Urine None Seen (0-5/HPF)
[2018-10-27 23:03] LABS: Appearance Urine UA CLEAR; Bilirubin Urine UA NEGATIVE (NEGATIVE); Color Urine UA YELLOW; Glucose Urine UA TRACE g/dL (Negative); Ketones Urine UA NEGATIVE (NEGATIVE); Leukocyte Esterase Urine UA NEGATIVE (NEGATIVE); Nitrite Urine UA NEGATIVE (Negative); Occult Blood Urine UA NEGATIVE (Negative); Protein Urine UA NEGATIVE (Negative); Specific Gravity Urine UA 1.025 (1.000-1.035); Urobilinogen Urine UA 0.2 E.U./dL (0.2); pH Urine UA 5.5 (4.5-8.0)
[2018-10-27 23:25] VITALS: TEMP 38
[2018-10-27 23:42] LABS: Culture Indicated Urine Cult Not Indicated; Urine Comments Microscopic Normal
[2018-10-28] VITALS (15 sets, daily range): BP systolic 97–137; BP diastolic 57–80; PULSE 78–106; RESP 16–20; TEMP 36.4–38.1; O2SAT 94–97; BMI 31.4
--- NOTE | 2018-10-28 | DI.RAD.S_ITS ---
PROCEDURE: XR CHEST 1V INDICATIONS: r/o pneumonia TECHNIQUE: One view of the chest was acquired. COMPARISON: [facility], , CHEST 1 VIEW, 04/27/2007, 0:54. [facility], , XR CHEST 1V, 10/27/2018, 20:40. [facility], , CHEST 1 VIEW, 05/05/2007, 14:24. FINDINGS: Surgical changes and devices: None. Lungs and pleura: Lungs are difficult to accurately assess due to asymmetric reduced inspiratory volume and elevation of the right hemidiaphragm. There is a mild alveolar edema pattern, with an appearance suggestive of prior smoking history given chronicity.. No pleural effusions or pneumothorax. Mediastinum: Mediastinal contours appear normal. Heart size is normal. Bones and chest wall: No suspicious bony lesions. Overlying soft tissues appear unremarkable. IMPRESSION: Chronic asymmetric elevation of the right hemidiaphragm. No definite pneumonia seen but the retrodiaphragmatic right lower lobe is not visualized. Mild interstitial prominence appears present, chronic in this patient. Dictated by: Tera Decker M.D. on 10/28/2018 at 12:51 Approved by: Tera Decker M.D. on 10/28/2018 at 12:53
--- NOTE | 2018-10-28 00:33 | PM.HP.1 ---
History of Present Illness Date Patient Seen: 10/28/18 Time Patient Seen: 01:10 Chief complaint: FEVER, CANCER PATIENT Narrative: The patient is a 58-year-old male with PMHx of HTN, AFIB, HFpEF, PE and DVT 08/1018 - AC w/ lovenox, HLD, DM 2T, prostate ca, MELVIN (on BiPap), insomnia, gout, vertigo, iron deficiency anemia, 2* polycythemia, chronic back pain (h/o spinal stenosis / lumbosacral region), neuropathy and prior tobacco dependence. The patient presented to the ED on 10/27/2018 out of concern for elevated temperature. Temperature of 100.9*F initially noted shortly prior to ED arrival, at approximately 8 pm. In the past week patient has been suffering from upper respiratory symptoms of non-productive cough, sore throat, and rhinorrea. Associated symptoms include: generalized fatigue, x2 episodes of loose stool, and shortness of breath. Shortness of breath is noted by patient's daughter. Patient himself does not feel he is short of breath. Denies exertional dyspnea, orthopnea, and peripheral edema. Denies chest pain, palpitations, syncopal events, abdominal pain, and symptoms of blood loss. Patient does experience positional vertigo. He has had a fall in September. At present time patient is undergoing chemotherapy for prostate cancer at [facility] (oncologist Arvind Gee). He has had a total of 2 treatments, most recent on October 19, 2018. He notes developing upper respiratory / flu-like symptoms after his most recent chemotherapy. Since his treatment he has also had exposure to ill contacts, predominantly family members with upper respiratory illness symptoms. He is known to have environmental allergies to pollen and tree bark. Patient is on Lupron injections every 6 months, last injection was on September 07, 2018. Patient reports adherence with his prescribed medication regimen. Denies missing doses of medications. ED Work-Up WBC 21.2 Hgb 11.3 Hct 35.1 Plt 297 Na 129 K 4.0 Cl 94 Ca 8.0 CO2 25 BUN 14 Cr 0.6 AST 15 ALT 30 Alk Phos 86 Lactate 2.0 PCT < 0.05 Influenza A/B negative UA + trace glucosuria, otherwise unremarkable CXR, lungs are clear, stable eventration of the right rafi-diaphragm, no pleural effusions or pneumothorax, normal mediastinal contours without cardiomegaly In ED received levaquin 750 mg IV, lovenox 100 mg SQ, and 1L NS bolus. Patient History Medical History Fatigue (Chronic) Primary insomnia (Chronic) Obstructive sleep apnea of adult (Chronic) Pulmonary embolism (Acute) Atrial fibrillation with controlled ventricular rate (Chronic) Diabetes type 2, controlled (Chronic) Gout (Chronic) Prostate cancer (Chronic) Social History details: single, lives with ex- in [place] household members: significant other lives independently: No caregiver/support person: Yes pets and animals: Yes (3 cats, couple the [employer]) occupational status: unemployed Smoking Status: Former smoker alcohol intake: current Family & Social History Social History: household members significant other lives independently No caregiver/support person Yes Safety & Behavioral: Feels Safe in Current Yes Environment Been Physically Hurt or No Threatened By a Person Tobacco & Substance use: Smoking Status Former smoker alcohol intake frequency other Substance Use Type does not use Meds Home Medications Medication Instructions Recorded Confirmed Type allopurinol 300 mg tablet 300 mg PO DAILY 04/28/18 10/28/18 History aspirin 81 mg chewable tablet 81 mg PO DAILY 04/28/18 10/28/18 History digoxin 250 mcg tablet 0.25 mg PO DAILY 04/28/18 10/28/18 History gabapentin 600 mg tablet 300 mg PO DAILY 04/28/18 10/28/18 History lisinopril 20 mg tablet 10 mg PO DAILY 04/28/18 10/28/18 History Respironics Dreamstation BIPAP #1 ea 10/27/18 10/27/18 History leuprolide (6 month) IM 10/27/18 10/27/18 History albuterol sulfate 2 puff INHALATION Q4-6H PRN 10/28/18 10/28/18 History calcium carbonate [Calcium 500] 1,000 mg PO DAILY 10/28/18 10/28/18 History dexamethasone 4 mg PO Q12H 10/28/18 10/28/18 History enoxaparin [Lovenox] 100 mg SUBCUT Q12H 10/28/18 10/28/18 History ferrous gluconate 324 mg PO DAILY 10/28/18 10/28/18 History furosemide 40 mg PO DAILY 10/28/18 10/28/18 History hydrocodone-acetaminophen 1 tab PO Q12H 10/28/18 10/28/18 History levofloxacin [Levaquin] 750 mg PO DAILY 10/28/18 10/28/18 History metformin 500 mg PO BID 10/28/18 10/28/18 History metoprolol succinate 200 mg PO BID 10/28/18 10/28/18 History metoprolol succinate [Toprol XL] 200 mg PO BID 10/28/18 10/28/18 History multivitamin 1 tab PO DAILY 10/28/18 10/28/18 History ondansetron HCl 8 mg PO BID PRN 10/28/18 10/28/18 History prochlorperazine maleate 10 mg PO Q6-8H 10/28/18 10/28/18 History tramadol 50 mg PO TID PRN 10/28/18 10/28/18 History Allergies Allergy/AdvReac Type Severity Reaction Status Date / Time No Known Drug Allergies Allergy Verified 10/27/18 20:20 Review of Systems Review of Systems All systems reviewed & are unremarkable except as noted in HPI and below Exam Vital Signs (past 8 hours): - 10/27/18 20:15 10/27/18 22:55 10/27/18 23:25 Temperature 99.7 F H 100.4 F H Pulse Rate 99 H 106 H Respiratory Rate 20 Blood Pressure 103/65 Blood Pressure [Right Arm] 106/67 Pulse Oximetry 99 95 Oxygen Delivery Method Room Air Narrative Exam Narrative: Constitutional: NAD Neurologic: AOx3, no focal neurological deficits Head: NC, AT Eyes: PERRL, EOMI, rhinorea Ears: external ears normal, no otorrhea, hard of hearing Nose: external nose normal, no rhinorrhea or epistaxis Throat: dry MM, oropharynx inflammed but no plaques Neck: no masses, lymphadenopathy, or JVD Chest / Respiratory: equal chest rise, unlabored respiratory effort, no tachypnea, or dyspnea at rest. CTAB Heart / CV: Irregularly irregular, no murmur Abdomen / GI: round, + central obesity, NT, ND, + BS, no organomegaly, bruises at different stages of hearing noted : no suprapubic tenderness Peripheral / Vascular: warm to touch, DP and PT pulses palpable, RLE + edema, non-tender to palpation, 2+ LLE no edema, left knee w/o significant swelling, effusion, heat, or tenderness to touch Musc: full ROM of upper and lower extremities, adequate muscle tone and bulk Skin: ecchymosis across abdomen (on lovenox injections), no suspicious lesions / ulcers, hyperpigmentation of BLE and generalized dryness Objective Labs Result Diagrams: 10/27/18 20:56 10/27/18 20:56 Labs: Laboratory Results - last 24 hr 10/27/18 10/27/18 10/27/18 20:56 20:56 20:56 WBC 21.2 H RBC 4.84 Hgb 11.3 L Hct 35.1 L MCV 72.6 L MCH 23.4 L MCHC 32.2 RDW 23.6 H Plt Count 297 Neut % (Auto) Not Reportable Lymph % (Auto) Not Reportable [place] % (Auto) Not Reportable Eos % (Auto) Not Reportable Baso % (Auto) Not Reportable Lymph # (Auto) Not Reportable [place] # (Auto) Not Reportable Baso # (Auto) Not Reportable Total Counted 100 Seg Neutrophils % 82.0 H Lymphocytes % (Manual) 6.0 L Atypical Lymphs % 1.0 H Monocytes % (Manual) 8.0 Metamyelocytes % 3.0 H Neutrophils # (Manual) 48548 H Smudge Cells 1+ H RBC Morphology See below Hypochromasia 2+ H Poikilocytosis 1+ H Anisocytosis 2+ H Target Cells 1+ H PT 13.7 H INR 1.2 APTT 34 Sodium Potassium Chloride Carbon Dioxide BUN Creatinine Estimated GFR BUN/Creatinine Ratio Glucose Lactate Calcium Total Bilirubin AST ALT Alkaline Phosphatase Total Protein Albumin Globulin Albumin/Globulin Ratio Procalcitonin < 0.05 Urine Color Urine Appearance Urine pH Ur Specific [place] Urine Protein Urine Glucose (UA) Urine Ketones Urine Occult Blood Urine Nitrate Urine Bilirubin Urine Urobilinogen Ur Leukocyte Esterase Urine RBC Urine WBC Urine Bacteria Ur Culture Indicated? Micro UA Comment Influenza A & B (PCR) 10/27/18 10/27/18 10/27/18 20:56 20:56 20:56 WBC RBC Hgb Hct MCV MCH MCHC RDW Plt Count Neut % (Auto) Lymph % (Auto) [place] % (Auto) Eos % (Auto) Baso % (Auto) Lymph # (Auto) [place] # (Auto) Baso # (Auto) Total Counted Seg Neutrophils % Lymphocytes % (Manual) Atypical Lymphs % Monocytes % (Manual) Metamyelocytes % Neutrophils # (Manual) Smudge Cells RBC Morphology Hypochromasia Poikilocytosis Anisocytosis Target Cells PT INR APTT Sodium 129 L Potassium 4.0 Chloride 94 L Carbon Dioxide 25 BUN 14 Creatinine 0.60 L Estimated GFR > 60.0 BUN/Creatinine Ratio 23.3 H Glucose 120 H Lactate 2.0 Calcium 8.0 L Total Bilirubin 0.3 AST 15 L ALT 30 Alkaline Phosphatase 86 Total Protein 5.8 L Albumin 3.3 L Globulin 2.5 Albumin/Globulin Ratio 1.3 Procalcitonin Urine Color Urine Appearance Urine pH Ur Specific [place] Urine Protein Urine Glucose (UA) Urine Ketones Urine Occult Blood Urine Nitrate Urine Bilirubin Urine Urobilinogen Ur Leukocyte Esterase Urine RBC Urine WBC Urine Bacteria Ur Culture Indicated? Micro UA Comment Influenza A & B (PCR) Negative 10/27/18 22:30 WBC RBC Hgb Hct MCV MCH MCHC RDW Plt Count Neut % (Auto) Lymph % (Auto) [place] % (Auto) Eos % (Auto) Baso % (Auto) Lymph # (Auto) [place] # (Auto) Baso # (Auto) Total Counted Seg Neutrophils % Lymphocytes % (Manual) Atypical Lymphs % Monocytes % (Manual) Metamyelocytes % Neutrophils # (Manual) Smudge Cells RBC Morphology Hypochromasia Poikilocytosis Anisocytosis Target Cells PT INR APTT Sodium Potassium Chloride Carbon Dioxide BUN Creatinine Estimated GFR BUN/Creatinine Ratio Glucose Lactate Calcium Total Bilirubin AST ALT Alkaline Phosphatase Total Protein Albumin Globulin Albumin/Globulin Ratio Procalcitonin Urine Color Yellow Urine Appearance Clear Urine pH 5.5 Ur Specific [place] 1.025 Urine Protein Negative Urine Glucose (UA) Trace H Urine Ketones Negative Urine Occult Blood Negative Urine Nitrate Negative Urine Bilirubin Negative Urine Urobilinogen 0.2 Ur Leukocyte Esterase Negative Urine RBC None seen Urine WBC None seen Urine Bacteria None seen Ur Culture Indicated? Cult not indicated Micro UA Comment Microscopic normal Influenza A & B (PCR) Assessment & Plan Assessment & Plan narrative: Fever, acute, present on admission unknown cause at this time bacterial vs viral vs sequela of chemotherapy vs acute bronchitis vs pneumonia (+ RF of being immunocompromised and exposure to ill contacts, at risk for strep pneumonia) Tmax 100.9 w/ 3-5 day history of upper respiratory symptoms, sx developed after chemo treatment On chemotherapy, 2nd cycle on 10/19/2018. Per lab trend it appears that he may have had leukocytosis after his first cycle, which was mid-september. Seen by PCP earlier in the day, diagnosed w/ pneumonia (however, no CXR done at time of diagnosis). Prescribed oral course of levaquin and albuterol inhaler. CXR is unremarkable for acute cardiopulmonary findings. WBC 21.2 with elevated temperature of 100.9?F (max). On room air without hypoxia or evidence of respiratory compromise Renal function stable, without evidence of CHASITY. Lactate 2.0, borderline, likely in the setting of hypovolemia. Plt count stable. PCT WNL. Liver enzymes at baseline. Overall, does not appear to be septic. However, in lieu of elevated temp and mild tachycardia, he does meet criteria for SIRS. - blood cx pending / to be followed, UA negative - received levofloxacin 750 mg IV in ED. Will hold further empiric therapy at this time given unremarkable CXR and negative PCT level. - supportive care and IV hydration - viral respiratory panel results reviewed: negative SIRS, acute, present on admission, active + elevated temp and mild tachycardia, meets criteria, no evidece of acute organ failure likely in the setting of hypovolemia and hypermetabolic statee - IVF and supportive care at this time - Trend labs and f/u on blood cx / viral respiratory panel Hypovolemia, acute, present on admission 2/2 GI losses, renal losses w/ use of furosemide, and hypermetabolic state - hold furosemide temporarily, volume status to be re-evaluated daily - IVF Generalized weakness, subacute, present on admission - consult PT Atrial fibrillation w/ controlled ventricular rate, chronic, present on admission, stable - resume FUNDRAISING MANAGER regimen of digoxin and metoprolol (w/ hold parameters) - resume anti-coagulatin w/ lovenox History of PE and RLE DVT, sub-acute - dx Aug 2018, present on admission, active - resume [employer]DRAISING MANAGER regimen of lovenox DM 2T w/ complications of peripheral neuropathy, chronic, present on admission - trend BP w/ routine lab - resume FUNDRAISING MANAGER regimen of metformin; if BG depicts labile trend, then will need to start more frequent BG monitoring and SSI Essential hypertension, chronic, present on admission, active BPs are soft, potentially in the setting of fever, infection ?? and hypovolemia - Trend BPs - Hold home anti-hypertensive regimen at this time Chronic lumbo-sacral pain, chronic, present on admission - Resume FUNDRAISING MANAGER regimen of tramadol prn (w/ parameters to hold if patient is lethargic or sedated) MELVIN, on BiPap, chronic, present on admission, stable - okay to use home BiPAP Code status discussed with patient. Wishes to be full code. Daughters, Raissa and Farhat Jansen, are his surrogate decision makers. Home medications reviewed, reconciled, and adjusted accordingly
[2018-10-28] MEDS: SODIUM CHLORIDE 0.9% FLUSH 10 ML IV (01:14)
[2018-10-28] MEDS: SODIUM CHLORIDE 0.9% 1,000 ML 100 ML IV ×3 (01:14→19:52)
--- NOTE | 2018-10-28 02:56 | PC.ADMIT ---
Addendum entered by Yesica Campuzano R.N. 10/28/18 06:00: Remains afebrile. Chronic pain continues at 4/10 but states it is tolerable and declines pain medication. RA sat 97%. Continues in afib with HR of 109. Original Note: Addendum entered by Yesica Campuzano R.N. 10/28/18 03:44: Coughed up green sputum so sent for culture as per MD verbal order. Temp currently 99 Original Note: 0059 Patient admitted to room 204 per stretcher from ER. Reports he suffers from vertigo so needs to sit at edge of bed for brief period before transferring into bed and then was still unsteady on feet; uses cane at home and reports recent falls. Is alert and oriented. Breath sounds CTA with RA sat of 95%. HR irregular with hx of afib. Telemetry reading was afib RVR with rate of 103. Denies nausea. BT present; reports stools have been loose past 2 days but only had 1 stool each day. Abdomen is bruised from receiving Lovenox injections as has prior dx of PE/right leg DVT. Denies dysuria or frequency but does state he has urinary urgency; needs to stand to urinate. Reports he is sometimes incontinent and will at times wear an adult diaper. Is able to turn self in bed. Wearing own MARGE stocking to right LE. Skin on feet is dry and has callused skin on soles of both feet. Perianal area/buttocks lightly red but no open areas noted. Has neuropathy in bilateral hands/feet which is chronic; wears gloves on both hands as always cold. States he has chronic pain in knees, ankles, pelvis and back with severity always being around 3-4/10. Currently complains of neck, knee and back pain with severity of 3/10. SCD's applied as per order but patient unable to tolerate. Complains of nasal congestion, nonproductive cough, runny nose and sore throat. Temperature upon admit was 100.6. Sclera of both eyes is reddened but denies itchiness, pain or discomfort. Fall risk score is high and bed alarm is activated. Oriented to bed controls and call light as well as bedside shift report. [email or web address] Admission Note: The patient,Roel Jansen,58 y/o, was given written information regarding hospital policies, unit procedures and contact persons. Patient's smoking status: Former smoker. Vital Signs - 8 hr 10/27/18 20:15 10/27/18 22:55 10/27/18 23:25 Temperature 99.7 F H 100.4 F H Pulse Rate 99 H 106 H Respiratory Rate 20 Blood Pressure 103/65 Blood Pressure [Right Arm] 106/67 Pulse Oximetry 99 95 10/28/18 00:37 10/28/18 01:20 Temperature 100.6 F H Pulse Rate 104 H 106 H Respiratory Rate 18 Blood Pressure 102/69 Blood Pressure [Right Arm] 101/61 Pulse Oximetry 95
[2018-10-28 03:36] LABS: Adenovirus Not Detected (Not Detect); Coronavirus 229E Not Detected (Not Detect); Coronavirus HKU1 Not Detected (Not Detect); Coronavirus NL 63 Not Detected (Not Detect); Coronavirus OC43 Not Detected (Not Detect)
[2018-10-28 03:37] LABS: Bordetella pertussis Not Detected (Not Detect); Chlamydophila pneumoniae Not Detected (Not Detect); Human Metapneumovirus Not Detected (Not Detect); Human Rhinovirus/Enterovirus Not Detected (Not Detect); Influenza A Not Detected (Not Detect); Influenza B Not Detected (Not Detect); Mycoplasma pneumoniae Not Detected (Not Detect); Parainfluenza Virus 1 Not Detected (Not Detect); Parainfluenza Virus 2 Not Detected (Not Detect); Parainfluenza Virus 3 Not Detected (Not Detect); Parainfluenza Virus 4 Not Detected (Not Detect); Respiratory Syncytial Virus Not Detected (Not Detect)
[2018-10-28] MEDS: METFORMIN HCL 500 MG TABLET PO ×2 (08:04→16:55)
[2018-10-28 08:23] LABS: Hematocrit 34.5 % (41-53); Hemoglobin 11.2 g/dL (13.5-17.5); Mean Corpuscular HGB Conc 32.3 % (30-36); Mean Corpuscular Hemoglobin 23.7 PG (26-34); Mean Corpuscular Volume 73.3 fL (80-100); Platelet Count 254 X10^3/uL (150-400); Red Cell Distribution Width 23.9 % (11.6-14.8); White Blood Cell Count 20.2 X10^3/uL (4.5-11.0)
[2018-10-28 08:31] LABS: Add Manual Diff / Slide Review YES
[2018-10-28 08:32] LABS: BUN Creatinine Ratio 18.3 (6-22); Blood Urea Nitrogen 11 mg/dL (9-20); Carbon Dioxide 28 mmol/L (22-32); Chloride 94 mmol/L (98-107); Estimated Glomerular Filt Rate > 60.0 mL/min (>60); Glucose 145 mg/dL (70-100); HEMOLYSIS < 15 (0-50); Sodium 131 mmol/L (137-145)
[2018-10-28 08:54] LABS: Neutrophils Absolute Manual 17170 /uL (3000-5900); Total Cells Counted 100
[2018-10-28 08:58] LABS: Microcytosis 1+; Polychromasia 1+; Toxic Granulation Present
[2018-10-28 08:59] LABS: Dohle Bodies 1+
[2018-10-28 09:00] LABS: Anisocytosis 2+
[2018-10-28] MEDS: ALLOPURINOL 300 MG TABLET PO (09:40)
[2018-10-28] MEDS: ASPIRIN 81 MG TAB PO (09:40)
[2018-10-28] MEDS: GABAPENTIN 300 MG CAPSULE PO (09:42)
[2018-10-28] MEDS: MULTIVITAMIN 1 TABLET 1 TAB PO (09:42)
[2018-10-28] MEDS: DIGOXIN 0.25 MG TABLET PO (09:42)
[2018-10-28] MEDS: ENOXAPARIN 100 MG/ML SYRINGE SUBCUT ×2 (09:42→21:33)
[2018-10-28 11:31] LABS: Lactate (Lactic Acid) 3.2 mmol/L (0.7-2.1)
--- NOTE | 2018-10-28 11:33 | PC.NURSE ---
AM Shift pt AO and receptive to care. pt arrived with fever on NOC shift (100.6, 99.0, and 98.8) no fever for our shift (98.2). BP is low at 97/68 and 101/69, asymptomatic, but pt reports having a low BP at baseline. pt is currently receiving chemotherapy every 3 weeks, reports last dose on October 19. ACHS CBGs are 152 this AM. pt having loose BM's (once a day for the last 3 days). Spoke to Dr. Galvez in regards to pt metoprolol and she stated that she will look over his medications and get with the patient as soon as she can. Family has been in and out of the patient's room, pt lives with one of his daughters (Megan) who is at bedside currently. pt suffers from vertigo and knows to change positions slowly.
[2018-10-28 13:08] LABS: Reflexed Lactate in 2 Hours Y
[2018-10-28] MEDS: METOPROLOL ER 50 MG TABLET 100 MG PO (21:33)
[2018-10-28] MEDS: ACETAMINOPHEN 325 MG TABLET 650 MG PO (21:40)
[2018-10-28 23:54] LABS: Hematocrit 34.9 % (41-53); Hemoglobin 11.1 g/dL (13.5-17.5); Mean Corpuscular Hemoglobin 23.3 PG (26-34); Mean Corpuscular Volume 72.8 fL (80-100); Platelet Count 245 X10^3/uL (150-400); Red Blood Cell Count 4.79 X10^6/uL (4.5-5.9); Red Cell Distribution Width 23.6 % (11.6-14.8); White Blood Cell Count 22.1 X10^3/uL (4.5-11.0)
[2018-10-28 23:55] LABS: Add Manual Diff / Slide Review YES
[2018-10-28 23:56] LABS: Lactate 2HR (Lactic Acid Rflx) 1.3 mmol/L (0.7-2.1)
[2018-10-28 23:57] LABS: BUN Creatinine Ratio 18.3 (6-22); Blood Urea Nitrogen 11 mg/dL (9-20); Carbon Dioxide 23 mmol/L (22-32); Chloride 98 mmol/L (98-107); Estimated Glomerular Filt Rate > 60.0 mL/min (>60); Glucose 95 mg/dL (70-100); HEMOLYSIS < 15 (0-50); Magnesium 1.8 mg/dL (1.6-2.3); Potassium 3.5 mmol/L (3.4-5.1); Sodium 130 mmol/L (137-145)
[2018-10-29 00:13] VITALS: O2SAT 97
[2018-10-29] MEDS: POTASSIUM CHLORIDE 20 MEQ TAB 40 MEQ PO (00:42)
[2018-10-29] MEDS: MAGNESIUM SULFATE 2 GM/50 ML PIGGYBACK IV (00:42)
[2018-10-29 01:06] LABS: Nucleated Red Blood Cells 1 #/Diff
[2018-10-29 01:07] LABS: Anisocytosis 3+; Poikilocytosis 1+; Toxic Granulation Present
[2018-10-29 02:41] LABS: Procalcitonin < 0.05 ng/mL (<0.5)
[2018-10-29 03:00] VITALS: BP 108/64; PULSE 91; RESP 20; TEMP 36.8; O2SAT 97
[2018-10-29 08:00] VITALS: BP 102/75; PULSE 97; RESP 15; TEMP 36.5; O2SAT 97
[2018-10-29] MEDS: METFORMIN HCL 500 MG TABLET PO (08:14)
[2018-10-29] MEDS: ALLOPURINOL 300 MG TABLET PO (08:14)
[2018-10-29] MEDS: ASPIRIN 81 MG TAB PO (08:14)
[2018-10-29 08:15] VITALS: PULSE 98
[2018-10-29] MEDS: METOPROLOL ER 50 MG TABLET 100 MG PO (08:15)
[2018-10-29] MEDS: DIGOXIN 0.25 MG TABLET PO (08:15)
[2018-10-29] MEDS: CALCIUM CARBONATE 500 MG TAB 1000 MG PO (08:15)
[2018-10-29] MEDS: GABAPENTIN 300 MG CAPSULE PO (08:15)
[2018-10-29] MEDS: MULTIVITAMIN 1 TABLET 1 TAB PO (08:16)
[2018-10-29] MEDS: SODIUM CHLORIDE 0.9% 1,000 ML 100 ML IV (08:16)
[2018-10-29] MEDS: ENOXAPARIN 100 MG/ML SYRINGE SUBCUT (09:27)
[2018-10-29] MEDS: ACETAMINOPHEN 325 MG TABLET 650 MG PO (10:14)
[2018-10-29 11:57] VITALS: BP 100/75; PULSE 89; RESP 16; TEMP 36.4; O2SAT 98
--- NOTE | 2018-10-29 12:02 | P.DS_ITS ---
History of Present Illness Date Patient Seen: 10/29/18 Chief complaint: FEVER, CANCER PATIENT Narrative: The patient is a 58-year-old male with PMHx of HTN, AFIB, HFpEF, PE and DVT 08/1018 - AC w/ lovenox, HLD, DM 2T, prostate ca, MELVIN (on BiPap), insomnia, gout, vertigo, iron deficiency anemia, 2* polycythemia, chronic back pain (h/o spinal stenosis / lumbosacral region), neuropathy and prior tobacco dependence. The patient presented to the ED on 10/27/2018 out of concern for elevated temperature. Temperature of 100.9*F initially noted shortly prior to ED arrival, at approximately 8 pm. In the past week patient has been suffering from upper respiratory symptoms of non-productive cough, sore throat, and rhinorrea. Associated symptoms include: generalized fatigue, x2 episodes of loose stool, and shortness of breath. Shortness of breath is noted by patient's daughter. Patient himself does not feel he is short of breath. Denies exertional dyspnea, orthopnea, and peripheral edema. Denies chest pain, palpitations, syncopal events, abdominal pain, and symptoms of blood loss. Patient does experience positional vertigo. He has had a fall in September. At present time patient is undergoing chemotherapy for prostate cancer at [facility] (oncologist Arvind Gee). He has had a total of 2 treatments, most recent on October 19, 2018. He notes developing upper respiratory / flu-like symptoms after his most recent chemotherapy. Since his treatment he has also had exposure to ill contacts, predominantly family members with upper respiratory illness symptoms. He is known to have environmental allergies to pollen and tree bark. Patient is on Lupron injections every 6 months, last injection was on September 07, 2018. Discharge Providers Date of admission: 10/28/18 00:02 Discharge Date: 10/29/18 Primary care physician: Damien López MD Consults: 10/28/18 01:50 Consult to Dietitian, Adult Routine Comment: Reason For Exam: MNA score = 8 Discharge provider: Breann Galvez MD Summary Discharge Diagnosis: Fever etiology unclear. No evidence of pneumonia urinary tract infection or bacterial infection. Hyponatremia Prostate cancer status post chemotherapy Paroxysmal atrial fibrillation Obstructive sleep apnea Gout Heart failure with reduced ejection fraction, chronic Hospital Course: Patient is a 58-year-old male with history of prostate cancer status post recent chemotherapy who presented with fever and a question pneumonia. Patient had a chest x-ray which was negative. His white count was elevated 22,000 a pro calcitonin was normal. Repeat chest x-ray was obtained which again was negative. The patient had blood cultures which were negative. He had urine cultures which were negative. He also underwent a viral panel and a influenza a and B panel all of which were negative. The patient defervesced over the past 24 hours. He had no shortness of breath, or wheezing. Patient was eating breakfast and deemed appropriate for discharge home. He will follow up with his primary care physician Dr. López next week. Exam Vital Signs (past 8 hours): - 10/29/18 08:00 10/29/18 08:15 10/29/18 11:57 Temperature 97.7 F 97.6 F Pulse Rate 97 H 98 H 89 Respiratory Rate 15 16 Blood Pressure 102/75 100/75 Pulse Oximetry 97 98 Oxygen Delivery Method Room Air Oxygen Flow Rate 0 Narrative Exam Narrative: Pleasant male in no acute distress Lungs: Clear to auscultation Cardiac exam: Regular rate and rhythm normal S1-S2 Abdomen: Soft nontender Extremities: Trace edema Objective Labs Result Diagrams: 10/28/18 23:40 10/28/18 23:40 Labs: Laboratory Results - last 24 hr 10/28/18 10/28/18 10/28/18 14:40 23:40 23:40 WBC 22.1 H RBC 4.79 Hgb 11.1 L Hct 34.9 L MCV 72.8 L MCH 23.3 L MCHC 32.0 RDW 23.6 H Plt Count 245 Neut % (Auto) Not Reportable Lymph % (Auto) Not Reportable [place] % (Auto) Not Reportable Eos % (Auto) Not Reportable Baso % (Auto) Not Reportable Lymph # (Auto) Not Reportable [place] # (Auto) Not Reportable Baso # (Auto) Not Reportable Seg Neutrophils % 71.0 H Band Neutrophils % 12.0 H Lymphocytes % (Manual) 12.0 L Monocytes % (Manual) 5.0 Nucleated RBCs 1 H Toxic Granulation Present H RBC Morphology See below Poikilocytosis 1+ H Anisocytosis 3+ H Sodium 130 L Potassium 3.5 Chloride 98 Carbon Dioxide 23 BUN 11 Creatinine 0.60 L Estimated GFR > 60.0 BUN/Creatinine Ratio 18.3 Glucose 95 Lactate 3.0 H Calcium 8.0 L Magnesium 1.8 Procalcitonin 10/28/18 10/28/18 23:40 23:40 WBC RBC Hgb Hct MCV MCH MCHC RDW Plt Count Neut % (Auto) Lymph % (Auto) [place] % (Auto) Eos % (Auto) Baso % (Auto) Lymph # (Auto) [place] # (Auto) Baso # (Auto) Seg Neutrophils % Band Neutrophils % Lymphocytes % (Manual) Monocytes % (Manual) Nucleated RBCs Toxic Granulation RBC Morphology Poikilocytosis Anisocytosis Sodium Potassium Chloride Carbon Dioxide BUN Creatinine Estimated GFR BUN/Creatinine Ratio Glucose Lactate 1.3 Calcium Magnesium Procalcitonin < 0.05 Discharge Plan Discharge Plan Patient Disposition: Home Discharge Med Rec/Prescriptions Prescriptions: Continued hydrocodone-acetaminophen 5-325 mg Tablet 1 tab PO Q12H RF: 0 calcium carbonate [Calcium 500] 500 mg calcium (1,250 mg) Tablet 1,000 mg PO DAILY RF: 0 dexamethasone 4 mg Tablet 4 mg PO Q12H RF: 0 furosemide 20 mg Tablet 40 mg PO DAILY RF: 0 enoxaparin [Lovenox] 100 mg/mL Syringe 100 mg SUBCUT Q12H RF: 0 ferrous gluconate 324 mg (37.5 mg iron) Tablet 324 mg PO DAILY RF: 0 multivitamin Tablet 1 tab PO DAILY RF: 0 metformin 500 mg Tablet 500 mg PO BID RF: 0 ondansetron HCl 8 mg Tablet 8 mg PO BID PRN (Reason: Nausea) RF: 0 metoprolol succinate [Toprol XL] 200 mg Tablet Extended Release 24 Hr 200 mg PO BID RF: 0 prochlorperazine maleate 10 mg Tablet 10 mg PO Q6-8H RF: 0 tramadol 50 mg Tablet 50 mg PO TID PRN (Reason: Pain (Scale Score 1-3)) RF: 0 calcium carbonate [Calcium 500] 500 mg calcium (1,250 mg) Tablet 500 mg DAILY RF: 0 lisinopril 20 mg tablet 10 mg PO DAILY RF: 0 aspirin 81 mg tablet,chewable 81 mg PO DAILY RF: 0 gabapentin 600 mg tablet 300 mg PO DAILY RF: 0 allopurinol 300 mg tablet 300 mg PO DAILY RF: 0 digoxin 250 mcg tablet 0.25 mg PO DAILY RF: 0 Discontinued metoprolol succinate 200 mg Tablet Extended Release 24 Hr 200 mg PO BID RF: 0 levofloxacin [Levaquin] 750 mg Tablet 750 mg PO DAILY RF: 0 albuterol sulfate 90 mcg/actuation Hfa Aerosol Inhaler 2 puff INHALATION Q4-6H PRN (Reason: Shortness Of Breath) RF: 0 No Action leuprolide (6 month) 1 dose IM QMONTH RF: 0 Respironics Dreamstation BIPAP Qty: 1 RF: 0 Follow up/Referrals: Damien López MD [Primary Care Provider] - Provider Discharge Instructions Diet: Diet as Tolerated, Low-sodium and Low-cholesterol Skin/Wound/Dressing Care Report to your healthcare provider any signs of infection, such as:: chills, fever Discharge Data Primary Care Provider: Damien López Attending Provider: Flavio Vazquez Admit Date/Time: 10/28/18 00:02 Quality VTE Deep Vein Thrombosis/Pulmonary Embolism Present on Admission: Yes
--- NOTE | 2018-10-29 12:37 | CM.IDA ---
Initial DCP Assessment Note: Late Entry Pt admitted under observation for high fever, pt has prostate CA currently undergoing chemotherapy. PCP: Dr López Payer: [employer]. Reviewed chart and met w/pt and dtr Farhat yesterday, explained role. Farhat is pt's primary cg, lives w/pt, and assists w/cooking, cleaning, errands and medication management. Pt is [place], he is most often capable of transferring from bed indp and ambulating w/some assist but does suffer from vertigo and has low activity tolerance at this time. Pt states he is a few doses into his chemo regiment at . His family drives him to all MD appts. Pt expects no DC needs, dtr agrees. This CERTIFIED REGISTERED NURSE PRACTITIONER strongly encouraged pt/family to contact CERTIFIED REGISTERED NURSE PRACTITIONER at to have the resource available in case needs or questions arise that the oncology SWer might be able to address. According to Dr Galvez, pt's fever down, no etiology/infection found for pt's fever. Pt will DC home today w/no known barriers. LUIS ENRIQUE Mireles Discharge Planning/Care Management CM Discharge Assessment Start: 10/29/18 12:35 Freq: Status: Active Protocol: Document 10/29/18 12:35 VIPUL (Rec: 10/29/18 12:37 VIPUL [id number]) Discharge Planning Assessment Assigned [employer] LUIS ENRIQUE Ramos DPOA/Assigned Designee Name Eileen Dougherty Contact Information [phone] Advance Directives? No History Provided By Patient Family Member Prior Living Arrangements House Household Members children Type of transporation used prior to Relies on Others admit Independent with ADL's No Is patient alert and oriented? Yes Needs Assistance With Meal Prep Managing Medications Home Chores / Shopping Barriers to Discharge No Discharge Plan Home Transportation Arrangement Family Referrals Initiated None needed Additional Comment Following in case DC needs or concerns arise. Whiteboard Updated in Patient Room with Yes name and ext. # of [employer]er Review Status In Process
--- NOTE | 2018-10-29 12:56 | PC.NURSE ---
IV dc'd intact. Patient eager to go home with his daughter. Discharge instructions and follow up care reviewed. Patient's daughter will call to schedule follow up appointment with Dr. López. Patient escorted out via wheelchair with all belongings by EMBALMER ASSISTANT to be discharged to home.
== END 2018-10-29 12:57 | disposition home or self-care (01) ==
LOC: ED 10-28 00:02 → AC 10-28 07:12
PROVIDERS: Admitting Provider Nurse Practitioner Gerontology; Emergency Provider Emergency Medicine; Family Provider Internal Medicine; PCP Internal Medicine; Visit Provider Nurse Practitioner Gerontology
DX: R50.9 Fever, unspecified (principal); C61 Malignant neoplasm of prostate; Z79.01 Long term (current) use of anticoagulants; G47.33 Obstructive sleep apnea (adult) (pediatric); M1A.9XX0 Chronic gout, unspecified, without tophus (tophi); Z86.711 Personal history of pulmonary embolism; E11.42 Type 2 diabetes mellitus with diabetic polyneuropathy; G89.29 Other chronic pain; M54.5 Low back pain; E87.1 Hypo-osmolality and hyponatremia; I48.0 Paroxysmal atrial fibrillation; I50.9 Heart failure, unspecified; Z79.84 Long term (current) use of oral hypoglycemic drugs
CPT/HCPCS: 36415; 36591; 71045; 80048; 80053; 81001; 82962; 83605; 83735; 84145; 85025; 85610; 85730; 87040; 87070; 87205; 87400; 87633; 87880; 93005; 93010; 96361; 96365; 96366; 96372; 99283; 99285; G0378; J1650; J1956

== ENCOUNTER → 2018-11-07 11:06 | Outpatient (CLI) | payer OTHER, MEDICAID, SELFPAY ==
[2018-10-28 00:59] VITALS: BMI 31.4
[2018-11-07 11:49] LABS: Basophils Absolute Auto 100 /uL (0-100); Eosinophils Absolute Auto 0 /uL (0-450); Eosinophils Percent Auto 0.1 % (2-4); Hematocrit 37.3 % (41-53); Hemoglobin 11.7 g/dL (13.5-17.5); Lymphocytes Absolute Auto 1600 /uL (1100-4500); Lymphocytes Percent Auto 14.6 % (25-40); Mean Corpuscular HGB Conc 31.3 % (30-36); Mean Corpuscular Hemoglobin 23.7 PG (26-34); Mean Corpuscular Volume 75.8 fL (80-100); Monocytes Absolute Auto 900 /uL (0-900); Neutrophils Absolute Auto 8500 /uL (1500-7000); Neutrophils Percent Auto 76.3 % (50-75); Platelet Count 247 X10^3/uL (150-400); Red Blood Cell Count 4.92 X10^6/uL (4.5-5.9); Red Cell Distribution Width 24.9 % (11.6-14.8); White Blood Cell Count 11.1 X10^3/uL (4.5-11.0)
[2018-11-07 12:04] LABS: Add Manual Diff / Slide Review SLIDE REVIEW
[2018-11-07 12:41] LABS: Alanine Aminotransferase 39 IU/L (21-72); Albumin 3.6 g/dL (3.5-5.0); Albumin Globulin Ratio 1.5 (1.0-2.8); Alkaline Phosphatase 95 U/L (38-126); Aspartate Aminotransferase 25 IU/L (17-59); BUN Creatinine Ratio 16.7 (6-22); Bilirubin Total 0.3 mg/dL (0.2-1.3); Blood Urea Nitrogen 10 mg/dL (9-20); Calcium 8.4 mg/dL (8.4-10.2); Carbon Dioxide 25 mmol/L (22-32); Chloride 96 mmol/L (98-107); Estimated Glomerular Filt Rate > 60.0 mL/min (>60); Globulin 2.4 g/dL (1.7-4.1); Glucose 96 mg/dL (70-100); HEMOLYSIS < 15 (0-50); Potassium 4.5 mmol/L (3.4-5.1); Sodium 131 mmol/L (137-145)
[2018-11-07 12:45] LABS: Anisocytosis 2+; Microcytosis 2+; Ovalocytes 1+; Poikilocytosis 1+; Tear Drop Cells 1+
[2018-11-07 12:46] LABS: Hypochromasia 1+
[2018-11-07 13:06] LABS: Prostate Specific Antigen 44.5 ng/mL (0.10-4.00)
== END ==
PROVIDERS: Family Provider Internal Medicine; PCP Internal Medicine; Referring Provider Internal Medicine Medical Oncology; Visit Provider Pharmacist
DX: C61 Malignant neoplasm of prostate (principal); Z79.01 Long term (current) use of anticoagulants
CPT/HCPCS: 36415; 80053; 84153; 85025

== ENCOUNTER → 2018-12-19 10:18 | Outpatient (CLI) | payer OTHER, MEDICAID, SELFPAY ==
[2018-10-28 00:59] VITALS: BMI 31.4
[2018-12-19 10:46] LABS: Add Manual Diff / Slide Review NO; Basophils Absolute Auto 100 /uL (0-100); Basophils Percent Auto 0.7 % (0-2); Eosinophils Absolute Auto 0 /uL (0-450); Eosinophils Percent Auto 0.3 % (2-4); Hematocrit 37.1 % (41-53); Hemoglobin 11.8 g/dL (13.5-17.5); Lymphocytes Absolute Auto 1600 /uL (1100-4500); Mean Corpuscular HGB Conc 31.8 % (30-36); Mean Corpuscular Hemoglobin 25.1 PG (26-34); Monocytes Absolute Auto 1100 /uL (0-900); Monocytes Percent Auto 9.6 % (3-14); Neutrophils Absolute Auto 9100 /uL (1500-7000); Neutrophils Percent Auto 76.4 % (50-75); Platelet Count 260 X10^3/uL (150-400); Red Blood Cell Count 4.69 X10^6/uL (4.5-5.9); Red Cell Distribution Width 21.8 % (11.6-14.8); White Blood Cell Count 11.9 X10^3/uL (4.5-11.0)
[2018-12-19 11:16] LABS: Alanine Aminotransferase 36 IU/L (21-72); Albumin 3.2 g/dL (3.5-5.0); Albumin Globulin Ratio 1.3 (1.0-2.8); Alkaline Phosphatase 108 U/L (38-126); Aspartate Aminotransferase 29 IU/L (17-59); BUN Creatinine Ratio 18.6 (6-22); Bilirubin Total 0.4 mg/dL (0.2-1.3); Blood Urea Nitrogen 13 mg/dL (9-20); Calcium 7.9 mg/dL (8.4-10.2); Carbon Dioxide 21 mmol/L (22-32); Chloride 102 mmol/L (98-107); Estimated Glomerular Filt Rate > 60.0 mL/min (>60); Globulin 2.5 g/dL (1.7-4.1); Glucose 108 mg/dL (70-100); HEMOLYSIS < 15 (0-50); Potassium 3.2 mmol/L (3.4-5.1); Sodium 135 mmol/L (137-145); Total Protein 5.7 g/dL (6.3-8.2)
[2018-12-19 11:43] LABS: Anisocytosis 2+; Poikilocytosis 2+
[2018-12-19 11:44] LABS: Hypochromasia 1+
[2018-12-19 11:45] LABS: Microcytosis 1+; Prostate Specific Antigen 35.7 ng/mL (0.10-4.00)
== END ==
PROVIDERS: Family Provider Internal Medicine Medical Oncology; PCP Internal Medicine; Visit Provider Pharmacist
DX: C61 Malignant neoplasm of prostate (principal); Z79.01 Long term (current) use of anticoagulants
CPT/HCPCS: 36415; 80053; 84153; 85025

== ENCOUNTER → 2018-12-22 17:12 | Outpatient (CLI) | payer OTHER, MEDICAID, SELFPAY ==
[2018-10-28 00:59] VITALS: BMI 31.4
[2018-12-22 19:38] LABS: Adenovirus F 40/41 Not Detected (Not Detect); Astrovirus Not Detected (Not Detect); Campylobacter Not Detected (Not Detect); Clostridium difficile toxin AB Not Detected (Not Detect); Cryptosporidium Not Detected (Not Detect); Cyclospora cayetanensis Not Detected (Not Detect); Entamoeba histolytica Not Detected (Not Detect); Enteroaggregative E.coli Not Detected (Not Detect); Enteropathogenic E.coli Not Detected (Not Detect); Enterotoxigenic E.coli It/st Not Detected (Not Detect); Giardia lamblia Not Detected (Not Detect); Norovirus GI/GII Not Detected (Not Detect); Plesiomonsa shigelloides Not Detected (Not Detect); Rotavirus A Not Detected (Not Detect); Salmonella Not Detected (Not Detect); Sapovirus Not Detected (Not Detect); Shiga-like toxin-prod E.coli Not Detected (Not Detect); Shigella/Enteroinvasive E.coli Not Detected (Not Detect); Vibrio Not Detected (Not Detect); Vibrio cholerae Not Detected (Not Detect); Yersinia enterocolitica Not Detected (Not Detect)
== END ==
PROVIDERS: Family Provider Internal Medicine Medical Oncology; PCP Internal Medicine; Visit Provider Nurse Practitioner Gerontology
DX: R19.7 Diarrhea, unspecified (principal)
CPT/HCPCS: 87507

== ENCOUNTER → 2019-01-03 13:08 | Outpatient (CLI) | payer OTHER, MEDICAID, SELFPAY ==
[2018-10-28 00:59] VITALS: BMI 31.4
[2019-01-03 13:52] LABS: Add Manual Diff / Slide Review NO; Basophils Absolute Auto 100 /uL (0-100); Basophils Percent Auto 0.5 % (0-2); Eosinophils Absolute Auto 0 /uL (0-450); Eosinophils Percent Auto 0.3 % (2-4); Hematocrit 36.6 % (41-53); Hemoglobin 11.8 g/dL (13.5-17.5); Lymphocytes Absolute Auto 1500 /uL (1100-4500); Lymphocytes Percent Auto 8.9 % (25-40); Mean Corpuscular HGB Conc 32.3 % (30-36); Mean Corpuscular Hemoglobin 25.4 PG (26-34); Mean Corpuscular Volume 78.8 fL (80-100); Monocytes Absolute Auto 1300 /uL (0-900); Neutrophils Absolute Auto 13600 /uL (1500-7000); Neutrophils Percent Auto 82.3 % (50-75); Platelet Count 244 X10^3/uL (150-400); Red Blood Cell Count 4.64 X10^6/uL (4.5-5.9); Red Cell Distribution Width 20.2 % (11.6-14.8); White Blood Cell Count 16.5 X10^3/uL (4.5-11.0)
[2019-01-03 14:13] LABS: Anisocytosis 2+; Hypochromasia 1+; Poikilocytosis 2+
[2019-01-03 14:17] LABS: Alanine Aminotransferase 38 IU/L (21-72); Albumin 3.2 g/dL (3.5-5.0); Albumin Globulin Ratio 1.3 (1.0-2.8); Alkaline Phosphatase 134 U/L (38-126); Aspartate Aminotransferase 25 IU/L (17-59); BUN Creatinine Ratio 18.3 (6-22); Bilirubin Total 0.7 mg/dL (0.2-1.3); Blood Urea Nitrogen 11 mg/dL (9-20); Calcium 7.2 mg/dL (8.4-10.2); Carbon Dioxide 27 mmol/L (22-32); Chloride 97 mmol/L (98-107); Estimated Glomerular Filt Rate > 60.0 mL/min (>60); Globulin 2.5 g/dL (1.7-4.1); Glucose 118 mg/dL (70-100); HEMOLYSIS < 15 (0-50); Sodium 135 mmol/L (137-145); Total Protein 5.7 g/dL (6.3-8.2)
[2019-01-03 14:33] LABS: Potassium 2.6 mmol/L (3.4-5.1)
[2019-01-03 14:47] LABS: Prostate Specific Antigen 42.4 ng/mL (0.10-4.00)
== END ==
PROVIDERS: Family Provider Internal Medicine Medical Oncology; PCP Internal Medicine; Visit Provider Internal Medicine Medical Oncology
DX: C61 Malignant neoplasm of prostate (principal)
CPT/HCPCS: 36415; 80053; 84153; 85025

== ENCOUNTER → 2019-01-06 12:58 | Outpatient (CLI) | payer OTHER, MEDICAID, SELFPAY ==
[2018-10-28 00:59] VITALS: BMI 31.4
[2019-01-06 14:29] LABS: Blood Urea Nitrogen 10 mg/dL (9-20); Calcium 7.2 mg/dL (8.4-10.2); Carbon Dioxide 26 mmol/L (22-32); Chloride 100 mmol/L (98-107); Estimated Glomerular Filt Rate > 60.0 mL/min (>60); Glucose 88 mg/dL (70-100); HEMOLYSIS < 15 (0-50); Sodium 137 mmol/L (137-145)
== END ==
PROVIDERS: PCP Internal Medicine; Visit Provider Internal Medicine Medical Oncology
DX: C61 Malignant neoplasm of prostate (principal)
CPT/HCPCS: 36415; 80048

== ENCOUNTER → 2019-01-09 11:45 | Outpatient (CLI) | payer OTHER, MEDICAID, SELFPAY ==
[2018-10-28 00:59] VITALS: BMI 31.4
[2019-01-09 12:31] LABS: Add Manual Diff / Slide Review NO; Basophils Absolute Auto 100 /uL (0-100); Basophils Percent Auto 0.6 % (0-2); Eosinophils Absolute Auto 0 /uL (0-450); Eosinophils Percent Auto 0.4 % (2-4); Hemoglobin 11.1 g/dL (13.5-17.5); Lymphocytes Absolute Auto 1600 /uL (1100-4500); Lymphocytes Percent Auto 14.8 % (25-40); Mean Corpuscular HGB Conc 32.5 % (30-36); Mean Corpuscular Hemoglobin 25.6 PG (26-34); Mean Corpuscular Volume 78.7 fL (80-100); Monocytes Absolute Auto 700 /uL (0-900); Monocytes Percent Auto 6.6 % (3-14); Neutrophils Absolute Auto 8300 /uL (1500-7000); Neutrophils Percent Auto 77.6 % (50-75); Platelet Count 314 X10^3/uL (150-400); Red Blood Cell Count 4.32 X10^6/uL (4.5-5.9); Red Cell Distribution Width 20.4 % (11.6-14.8); White Blood Cell Count 10.6 X10^3/uL (4.5-11.0)
[2019-01-09 13:08] LABS: HEMOLYSIS < 15 (0-50)
[2019-01-09 13:14] LABS: Alanine Aminotransferase 39 IU/L (21-72); Albumin 2.8 g/dL (3.5-5.0); Albumin Globulin Ratio 1.1 (1.0-2.8); Alkaline Phosphatase 125 U/L (38-126); Anisocytosis 2+; Aspartate Aminotransferase 30 IU/L (17-59); Bilirubin Total 0.2 mg/dL (0.2-1.3); Blood Urea Nitrogen 11 mg/dL (9-20); Calcium 7.6 mg/dL (8.4-10.2); Carbon Dioxide 25 mmol/L (22-32); Chloride 105 mmol/L (98-107); Estimated Glomerular Filt Rate > 60.0 mL/min (>60); Globulin 2.5 g/dL (1.7-4.1); Glucose 102 mg/dL (70-100); Ovalocytes 1+; Poikilocytosis 1+; Potassium 3.7 mmol/L (3.4-5.1); Sodium 137 mmol/L (137-145); Total Protein 5.3 g/dL (6.3-8.2)
[2019-01-09 13:15] LABS: Hypochromasia 1+; Schistocytes 1+
[2019-01-09 14:30] LABS: Prostate Specific Antigen 36.7 ng/mL (0.10-4.00)
== END ==
PROVIDERS: PCP Internal Medicine; Visit Provider Nurse Practitioner Gerontology
DX: C61 Malignant neoplasm of prostate (principal)
CPT/HCPCS: 36415; 80053; 84153; 85025

== ENCOUNTER → 2019-01-13 14:20 | Outpatient (CLI) | payer OTHER, MEDICAID, SELFPAY ==
[2018-10-28 00:59] VITALS: BMI 31.4
[2019-01-13 16:15] LABS: Add Manual Diff / Slide Review NO; Basophils Absolute Auto 100 /uL (0-100); Basophils Percent Auto 0.2 % (0-2); Eosinophils Absolute Auto 0 /uL (0-450); Hematocrit 33.9 % (41-53); Hemoglobin 10.7 g/dL (13.5-17.5); Lymphocytes Absolute Auto 1600 /uL (1100-4500); Lymphocytes Percent Auto 3.1 % (25-40); Mean Corpuscular HGB Conc 31.6 % (30-36); Mean Corpuscular Hemoglobin 24.9 PG (26-34); Mean Corpuscular Volume 78.6 fL (80-100); Monocytes Absolute Auto 600 /uL (0-900); Monocytes Percent Auto 1.2 % (3-14); Neutrophils Absolute Auto 49500 /uL (1500-7000); Neutrophils Percent Auto 95.5 % (50-75); Platelet Count 304 X10^3/uL (150-400); Red Blood Cell Count 4.32 X10^6/uL (4.5-5.9); Red Cell Distribution Width 19.7 % (11.6-14.8)
[2019-01-13 16:22] LABS: White Blood Cell Count 51.8 X10^3/uL (4.5-11.0)
[2019-01-13 16:31] LABS: BUN Creatinine Ratio 26.7 (6-22); Blood Urea Nitrogen 16 mg/dL (9-20); Calcium 8.3 mg/dL (8.4-10.2); Carbon Dioxide 29 mmol/L (22-32); Chloride 98 mmol/L (98-107); Estimated Glomerular Filt Rate > 60.0 mL/min (>60); Glucose 72 mg/dL (70-100); HEMOLYSIS < 15 (0-50); Potassium 4.6 mmol/L (3.4-5.1); Sodium 137 mmol/L (137-145)
== END ==
PROVIDERS: PCP Internal Medicine; Visit Provider Internal Medicine Medical Oncology
DX: C61 Malignant neoplasm of prostate (principal); Z79.01 Long term (current) use of anticoagulants
CPT/HCPCS: 36415; 80048; 85025

== ENCOUNTER 2019-01-13 17:17 | Emergency (ER) | payer OTHER, MEDICAID, SELFPAY ==
[2018-10-28 00:59] VITALS: BMI 31.4
[2019-01-13 17:25] VITALS: BP 114/78; PULSE 113; RESP 18; TEMP 36.6; O2SAT 99; BMI 30.5
--- NOTE | 2019-01-13 17:30 | DI.RAD.S_ITS ---
PROCEDURE: XR CHEST 2V INDICATIONS: chemo pt, elevated white count TECHNIQUE: 2 views of the chest were acquired. COMPARISON: [facility], CR, XR CHEST 1V, 10/28/2018, 12:34. [facility], CR, XR CHEST 1V, 10/27/2018, 20:40. [facility], CR, CHEST 1 VIEW, 05/05/2007, 14:24. [facility], CR, CHEST 1 VIEW, 04/27/2007, 0:54. FINDINGS: Surgical changes and devices: None. Lungs and pleura: There is similar chronic elevation of the right hemidiaphragm, which obscures the right lower lobe. No pleural effusion or pneumothorax. Mild interstitial prominence appears similar to prior exam. Mild bibasilar pulmonary opacities are again noted. There is prominence of the pulmonary vasculature. Mediastinum: Cardiac contours are partially obscured by the elevated right hemidiaphragm. Cardiac silhouette is otherwise within normal limits for size and morphology. Mediastinal silhouette is within normal limits for size. Bones and chest wall: No acute osseous abnormality. IMPRESSION: 1. Mild bibasilar opacities most consistent with atelectasis, less likely pneumonia. 2. Chronic elevation of the right hemidiaphragm again noted, which obscures the right lower lobe. 3. Mild chronic interstitial prominence is similar appearance to prior exam, and may represent a degree of increased volume status/trace pulmonary edema versus sequela of chronic lung disease. Dictated by: Vladimir Draper M.D. on 01/13/2019 at 18:08 Approved by: Vladimir Draper M.D. on 01/13/2019 at 18:11
--- NOTE | 2019-01-13 17:32 | ED.RECABL ---
HPI - Recheck/Abnormal Lab/Rx <Rina Cordova PA-C - Last Filed: 01/13/19 21:11> General Chief Complaint: Recheck/Abnormal Lab/Rx Stated Complaint: chemo patient, states lab results are abnormal Time Seen by Provider: 01/13/19 17:20 Source: patient Mode of arrival: ambulatory Limitations: no limitations History of Present Illness HPI narrative: This 58-year-old gentleman states he was sent by oncology nurse due to abnormal labs today, he had a white count of 51.8, changed from 4 days ago. He is undergoing chemotherapy for prostate cancer. He states he is tired, but otherwise actually feeling quite well. He states that he had some diarrhea last week, but resolved 5 or 6 days ago. He denies abdominal pain, nausea or vomiting. He denies any cough, congestion or respiratory symptoms. He denies any chest pain or dyspnea. No new swelling or pain in the extremities. Denies any fever. He denies any new rash. He denies any urinary symptoms. He states that he was hospitalized a few weeks ago for fever respiratory symptoms. He denies any recent travel or exposures. He does have a history of DVT and PE, states PE was resolved on most recent scan. He is on Eliquis for this, also atrial fibrillation. He had last chemotherapy 2 days ago. No medication changes. He does not know which chemotherapy he is on, not on his med list that he brought from where he receives treatment. Related Data Home Medications Medication Instructions Recorded Confirmed allopurinol 300 mg tablet 300 mg PO DAILY 04/28/18 10/28/18 aspirin 81 mg chewable tablet 81 mg PO DAILY 04/28/18 10/28/18 digoxin 250 mcg tablet 0.25 mg PO DAILY 04/28/18 10/28/18 gabapentin 600 mg tablet 300 mg PO DAILY 04/28/18 10/28/18 lisinopril 20 mg tablet 10 mg PO DAILY 04/28/18 10/28/18 [email or web address].ess Dreamstation BIPAP #1 ea 10/27/18 10/28/18 leuprolide (6 month) 1 dose IM QMONTH 10/27/18 10/28/18 calcium carbonate [Calcium 500] 1,000 mg PO DAILY 10/28/18 10/28/18 calcium carbonate [Calcium 500] 500 mg DAILY 10/28/18 10/28/18 dexamethasone 4 mg PO Q12H 10/28/18 10/28/18 enoxaparin [Lovenox] 100 mg SUBCUT Q12H 10/28/18 10/28/18 ferrous gluconate 324 mg PO DAILY 10/28/18 10/28/18 furosemide 40 mg PO DAILY 10/28/18 10/28/18 hydrocodone-acetaminophen 1 tab PO Q12H 10/28/18 10/28/18 metformin 500 mg PO BID 10/28/18 10/28/18 metoprolol succinate [Toprol XL] 200 mg PO BID 10/28/18 10/28/18 multivitamin 1 tab PO DAILY 10/28/18 10/28/18 ondansetron HCl 8 mg PO BID PRN 10/28/18 10/28/18 prochlorperazine maleate 10 mg PO Q6-8H 10/28/18 10/28/18 tramadol 50 mg PO TID PRN 10/28/18 10/28/18 Previous Rx's Medication Instructions Recorded amoxicillin-pot clavulanate 1 tab PO Q12H #14 tab 01/13/19 [Augmentin] Allergies Allergy/AdvReac Type Severity Reaction Status Date / Time No Known Drug Allergies Allergy Verified 10/27/18 20:20 Review of Systems <Rina Cordova PA-C - Last Filed: 01/13/19 21:11> Review of Systems ROS Unobtainable: All systems reviewed & are unremarkable except as noted in HPI and below PFSH <Rina Cordova PA-C - Last Filed: 01/13/19 21:11> Medical History (Updated 01/13/19 @ 20:42 by Rina Cordova PA-C) Status post vasectomy (Chronic) Chronic back pain (Chronic) Pulmonary embolism (Resolved) Fatigue (Chronic) Atrial fibrillation with controlled ventricular rate (Chronic) Diabetes type 2, controlled (Chronic) Gout (Chronic) Prostate cancer (Chronic) Primary insomnia (Chronic) Obstructive sleep apnea of adult (Chronic) Surgical History (Updated 01/13/19 @ 17:36 by Rina Cordova PA-C) H/O hernia repair (Chronic) Social History details: single, lives with ex- in [place] household members: children lives independently: No caregiver/support person: Yes pets and animals: Yes (3 cats, couple jaquan) occupational status: unemployed Smoking Status: Former smoker alcohol intake: current Social History details: single, lives with ex- in [place] household members: children lives independently: No caregiver/support person: Yes pets and animals: Yes (3 cats, couple jaquan) occupational status: unemployed Smoking Status: Former smoker alcohol intake: current Exam <CHAI Larson Last Filed: 01/13/19 21:11> Narrative Exam Narrative: GENERAL APPEARANCE: Patient sitting comfortably, in no distress. Somewhat pale EYES: PERRL, EOMI. ORAL CAVITY: Normal oropharynx. THROAT: Clear. NECK/THYROID: Neck supple, full range of motion, no cervical lymphadenopathy. LUNGS: Clear to auscultation bilaterally, no cough on exam. HEART: Irregular rate and rhythm without murmur ABDOMEN: Soft, nontender, nondistended, +bowel sounds x4 quadrants EXTREMITIES: Mild edema R, trace on L., no calf tenderness DERMATOLOGIC: No exanthem NEUROLOGIC: Alert, oriented, normal speech, gait, coordination Initial Vital Signs Initial Vital Signs: Vital Signs Temperature 97.8 F 01/13/19 17:25 Pulse Rate 113 H 01/13/19 17:25 Respiratory Rate 18 01/13/19 17:25 Blood Pressure 114/78 01/13/19 17:25 Pulse Oximetry 99 01/13/19 17:25 <Marcus Reis DO - Last Filed: 01/13/19 23:48> Initial Vital Signs Initial Vital Signs: Vital Signs Temperature 97.8 F 01/13/19 17:25 Pulse Rate 113 H 01/13/19 17:25 Respiratory Rate 18 01/13/19 17:25 Blood Pressure 114/78 01/13/19 17:25 Pulse Oximetry 99 01/13/19 17:25 Course <CHAI Larson Last Filed: 01/13/19 21:11> Additional Information: Patient does not have any evidence of acute infection on evaluation. There is some likely atelectasis on his chest x-ray verses bibasilar pneumonia though I reviewed chest x-ray with Dr. Reis and we do not see any infiltrate or acute changes. He does not have cough or respiratory symptoms. No fever. No urinary symptoms. I spoke with Dr. Robin Sosa, butadiene converter operator for patient's oncologist Dr. Berry Gee, and reviewed and findings. Patient does get dexamethasone the day prior, of, and following chemotherapy, and did get probable Neulasta injection [address] Sosa suspects these could be the cause, but not clear at least on the lab work that we have here that this has occurred in the past on same medications. Advised getting patient on antibiotic for now requested that he call the clinic 1st thing on Wednesday for follow-up. He is on multiple additional medicines including digoxin and Eliquis, so placed on Augmentin. Reviewed importance of immediate return with patient should he develop new symptoms over the weekend including fever, respiratory symptoms, urinary symptoms etc, and he is agreeable. We have drawn blood cultures which are pending. Orders Ordered: ED Orders 01/13/19 17:30 XR chest 2V Stat 01/13/19 17:51 Complete Blood Count AUTO DIFF Stat Comprehensive Metabolic Panel Stat Lactate (Lactic Acid) Stat Partial Thromboplastin Time Stat Prothrombin Time INR Stat 01/13/19 18:00 Blood Culture Stat 01/13/19 18:55 Urine Microscopic Stat Discontinued Medications Amoxicillin/Clavulanate Potassium (Augmentin 875-125 Mg) 1 tab PO NOW ONE Stop: 01/13/19 20:18 Last Admin: 01/13/19 20:29 Dose: 1 tab Sodium Chloride (Normal Saline 0.9%) 1,000 mls @ 1,000 mls/hr IV BOLUS ONE Stop: 01/13/19 18:30 Last Infusion: 01/13/19 19:40 Dose: 0 mls/hr Admin: 01/13/19 18:32 Dose: 1,000 mls/hr Vital Signs - 8 hr 01/13/19 17:25 01/13/19 18:00 01/13/19 19:37 Temperature 97.8 F 97.4 F L Pulse Rate 113 H 94 H 86 Respiratory Rate 18 16 19 Blood Pressure 114/78 Blood Pressure [Left Arm] 102/61 103/73 Pulse Oximetry 99 99 98 01/13/19 20:00 01/13/19 20:33 01/13/19 20:51 Temperature Pulse Rate 83 98 H 98 H Respiratory Rate 18 20 18 Blood Pressure 100/66 Blood Pressure [Left Arm] 100/77 100/66 Pulse Oximetry 99 100 99 <Marcus Reis DO - Last Filed: 01/13/19 23:48> Orders Ordered: ED Orders 01/13/19 17:30 XR chest 2V Stat 01/13/19 17:51 Complete Blood Count AUTO DIFF Stat Comprehensive Metabolic Panel Stat Lactate (Lactic Acid) Stat Partial Thromboplastin Time Stat Prothrombin Time INR Stat 01/13/19 18:00 Blood Culture Stat 01/13/19 18:55 Urine Microscopic Stat Discontinued Medications Amoxicillin/Clavulanate Potassium (Augmentin 875-125 Mg) 1 tab PO NOW ONE Stop: 01/13/19 20:18 Last Admin: 01/13/19 20:29 Dose: 1 tab Sodium Chloride (Normal Saline 0.9%) 1,000 mls @ 1,000 mls/hr IV BOLUS ONE Stop: 01/13/19 18:30 Last Infusion: 01/13/19 19:40 Dose: 0 mls/hr Admin: 01/13/19 18:32 Dose: 1,000 mls/hr Vital Signs - 8 hr 01/13/19 17:25 01/13/19 18:00 01/13/19 19:37 Temperature 97.8 F 97.4 F L Pulse Rate 113 H 94 H 86 Respiratory Rate 18 16 19 Blood Pressure 114/78 Blood Pressure [Left Arm] 102/61 103/73 Pulse Oximetry 99 99 98 01/13/19 20:00 01/13/19 20:33 01/13/19 20:51 Temperature Pulse Rate 83 98 H 98 H Respiratory Rate 18 20 18 Blood Pressure 100/66 Blood Pressure [Left Arm] 100/77 100/66 Pulse Oximetry 99 100 99 MDM - Recheck/Abnormal Lab/Rx <Rina Cordova PA-C - Last Filed: 01/13/19 21:11> Lab Data Attestation: I reviewed the patient's lab results. Result diagrams: 01/13/19 17:51 01/13/19 17:51 Lab Results 01/13/19 01/13/19 01/13/19 Range/Units 17:51 17:51 17:51 WBC 47.9 H* (4.5-11.0) X10^3/uL RBC 4.28 L (4.5-5.9) X10^6/uL Hgb 10.7 L (13.5-17.5) g/dL Hct 33.8 L (41-53) % MCV 79.0 L (80-100) fL MCH 25.0 L (26-34) PG MCHC 31.6 (30-36) % RDW 20.1 H (11.6-14.8) % Plt Count 282 (150-400) X10^3/uL Neut % (Auto) Not Reportable Lymph % (Auto) Not Reportable [place] % (Auto) Not Reportable Eos % (Auto) Not Reportable Baso % (Auto) Not Reportable Lymph # (Auto) Not Reportable [place] # (Auto) Not Reportable Baso # (Auto) Not Reportable Total Counted 100 Seg Neutrophils % 74.0 H (38-70) % Band Neutrophils % 11.0 H (3-7) % Lymphocytes % (Manual) 5.0 L (25-45) % Monocytes % (Manual) 2.0 (2-11) % Metamyelocytes % 5.0 H (-0) % Myelocytes % 3.0 H (-0) % Neutrophils # (Manual) 72323 H (2423-0190) /uL RBC Morphology See below Hypochromasia 1+ H Poikilocytosis 2+ H Anisocytosis 1+ H Microcytosis 1+ H Ovalocytes 1+ H PT 17.5 H (10.1-12.7) SECONDS INR 1.5 H (0.9-1.3) APTT 33 (26.4-36.2) SECONDS Sodium 136 L (137-145) mmol/L Potassium 4.7 (3.4-5.1) mmol/L Chloride 102 (98-107) mmol/L Carbon Dioxide 26 (22-32) mmol/L BUN 16 (9-20) mg/dL Creatinine 0.60 L (0.66-1.25) mg/dL Estimated GFR > 60.0 (>60) mL/min BUN/Creatinine Ratio 26.7 H (6-22) Glucose 90 (70-100) mg/dL Lactate (0.7-2.1) mmol/L Calcium 8.0 L (8.4-10.2) mg/dL Total Bilirubin 0.7 (0.2-1.3) mg/dL AST 72 H (17-59) IU/L ALT 117 H (21-72) IU/L Alkaline Phosphatase 170 H (38-126) U/L Total Protein 6.0 L (6.3-8.2) g/dL Albumin 3.4 L (3.5-5.0) g/dL Globulin 2.6 (1.7-4.1) g/dL Albumin/Globulin Ratio 1.3 (1.0-2.8) Urine RBC (0-5/HPF) Urine WBC (0-5/HPF) Ur Squamous Epith Cells (0-5/HPF) Urine Bacteria (None) Ur Culture Indicated? 01/13/19 01/13/19 Range/Units 17:51 18:55 WBC (4.5-11.0) X10^3/uL RBC (4.5-5.9) X10^6/uL Hgb (13.5-17.5) g/dL Hct (41-53) % MCV (80-100) fL MCH (26-34) PG MCHC (30-36) % RDW (11.6-14.8) % Plt Count (150-400) X10^3/uL Neut % (Auto) Lymph % (Auto) [place] % (Auto) Eos % (Auto) Baso % (Auto) Lymph # (Auto) [place] # (Auto) Baso # (Auto) Total Counted Seg Neutrophils % (38-70) % Band Neutrophils % (3-7) % Lymphocytes % (Manual) (25-45) % Monocytes % (Manual) (2-11) % Metamyelocytes % (-0) % Myelocytes % (-0) % Neutrophils # (Manual) (4742-6886) /uL RBC Morphology Hypochromasia Poikilocytosis Anisocytosis Microcytosis Ovalocytes PT (10.1-12.7) SECONDS INR (0.9-1.3) APTT (26.4-36.2) SECONDS Sodium (137-145) mmol/L Potassium (3.4-5.1) mmol/L Chloride (98-107) mmol/L Carbon Dioxide (22-32) mmol/L BUN (9-20) mg/dL Creatinine (0.66-1.25) mg/dL Estimated GFR (>60) mL/min BUN/Creatinine Ratio (6-22) Glucose (70-100) mg/dL Lactate 1.7 (0.7-2.1) mmol/L Calcium (8.4-10.2) mg/dL Total Bilirubin (0.2-1.3) mg/dL AST (17-59) IU/L ALT (21-72) IU/L Alkaline Phosphatase (38-126) U/L Total Protein (6.3-8.2) g/dL Albumin (3.5-5.0) g/dL Globulin (1.7-4.1) g/dL Albumin/Globulin Ratio (1.0-2.8) Urine RBC 1-5/hpf (0-5/HPF) Urine WBC 0-1/hpf (0-5/HPF) Ur Squamous Epith Cells 0-1 /hpf (0-5/HPF) Urine Bacteria None seen (None) Ur Culture Indicated? Cult not indicated Urine Dip Bedside Urine Glucose Negative Bedside Urine Bilirubin - Negative Bedside Urine Ketone - Negative Urine Specific [place] 1.025 Bedside Urine Occult Blood ++ Bedside Urine pH 5.0 Bedside Urine Protein +/- 15 Bedside Urine Urobilinogen - Negative Bedside Urine Nitrite - Negative Bedside Urine Leukocytes - Negative Esterase Imaging Data Chest x-ray: Radiologist's impression: [place] [address] XRay Report Signed Patient: Roel Jansen LMR#: [id number] : 1960Acct:[id number] Age/Sex: 58 / MDate of Service: 01/13/19 Loc: ED Accession Number: [id number] Procedure: XR chest 2V Ordering Provider: Rina Cordova P.A-C PROCEDURE: XR CHEST 2V INDICATIONS: chemo pt, elevated white count TECHNIQUE: 2 views of the chest were acquired. COMPARISON: [facility], CR, XR CHEST 1V, 10/28/2018, 12:34. [facility] CR, XR CHEST 1V, 10/27/2018, 20:40. [facility], , CHEST 1 VIEW, 05/05/2007, 14:24. [facility] CR, CHEST 1 VIEW, 04/27/2007, 0:54. FINDINGS: Surgical changes and devices: None. Lungs and pleura: There is similar chronic elevation of the right hemidiaphragm, which obscures the right lower lobe. No pleural effusion or pneumothorax. Mild interstitial prominence appears similar to prior exam. Mild bibasilar pulmonary opacities are again noted. There is prominence of the pulmonary vasculature. Mediastinum: Cardiac contours are partially obscured by the elevated right hemidiaphragm. Cardiac silhouette is otherwise within normal limits for size and morphology. Mediastinal silhouette is within normal limits for size. Bones and chest wall: No acute osseous abnormality. IMPRESSION: 1. Mild bibasilar opacities most consistent with atelectasis, less likely pneumonia. 2. Chronic elevation of the right hemidiaphragm again noted, which obscures the right lower lobe. 3. Mild chronic interstitial prominence is similar appearance to prior exam, and may represent a degree of increased volume status/trace pulmonary edema versus sequela of chronic lung disease. Dictated by: Vladimir Draper M.D. on 01/13/2019 at 18:08 Approved by: Vladimir Draper M.D. on 01/13/2019 at 18:11 <Marcus Reis DO - Last Filed: 01/13/19 23:48> Lab Data Lab Results 01/13/19 01/13/19 01/13/19 Range/Units 17:51 17:51 17:51 WBC 47.9 H* (4.5-11.0) X10^3/uL RBC 4.28 L (4.5-5.9) X10^6/uL Hgb 10.7 L (13.5-17.5) g/dL Hct 33.8 L (41-53) % MCV 79.0 L (80-100) fL MCH 25.0 L (26-34) PG MCHC 31.6 (30-36) % RDW 20.1 H (11.6-14.8) % Plt Count 282 (150-400) X10^3/uL Neut % (Auto) Not Reportable Lymph % (Auto) Not Reportable [place] % (Auto) Not Reportable Eos % (Auto) Not Reportable Baso % (Auto) Not Reportable Lymph # (Auto) Not Reportable [place] # (Auto) Not Reportable Baso # (Auto) Not Reportable Total Counted 100 Seg Neutrophils % 74.0 H (38-70) % Band Neutrophils % 11.0 H (3-7) % Lymphocytes % (Manual) 5.0 L (25-45) % Monocytes % (Manual) 2.0 (2-11) % Metamyelocytes % 5.0 H (-0) % Myelocytes % 3.0 H (-0) % Neutrophils # (Manual) 47248 H (8876-7019) /uL RBC Morphology See below Hypochromasia 1+ H Poikilocytosis 2+ H Anisocytosis 1+ H Microcytosis 1+ H Ovalocytes 1+ H PT 17.5 H (10.1-12.7) SECONDS INR 1.5 H (0.9-1.3) APTT 33 (26.4-36.2) SECONDS Sodium 136 L (137-145) mmol/L Potassium 4.7 (3.4-5.1) mmol/L Chloride 102 (98-107) mmol/L Carbon Dioxide 26 (22-32) mmol/L BUN 16 (9-20) mg/dL Creatinine 0.60 L (0.66-1.25) mg/dL Estimated GFR > 60.0 (>60) mL/min BUN/Creatinine Ratio 26.7 H (6-22) Glucose 90 (70-100) mg/dL Lactate (0.7-2.1) mmol/L Calcium 8.0 L (8.4-10.2) mg/dL Total Bilirubin 0.7 (0.2-1.3) mg/dL AST 72 H (17-59) IU/L ALT 117 H (21-72) IU/L Alkaline Phosphatase 170 H (38-126) U/L Total Protein 6.0 L (6.3-8.2) g/dL Albumin 3.4 L (3.5-5.0) g/dL Globulin 2.6 (1.7-4.1) g/dL Albumin/Globulin Ratio 1.3 (1.0-2.8) Urine RBC (0-5/HPF) Urine WBC (0-5/HPF) Ur Squamous Epith Cells (0-5/HPF) Urine Bacteria (None) Ur Culture Indicated? 01/13/19 01/13/19 Range/Units 17:51 18:55 WBC (4.5-11.0) X10^3/uL RBC (4.5-5.9) X10^6/uL Hgb (13.5-17.5) g/dL Hct (41-53) % MCV (80-100) fL MCH (26-34) PG MCHC (30-36) % RDW (11.6-14.8) % Plt Count (150-400) X10^3/uL Neut % (Auto) Lymph % (Auto) [place] % (Auto) Eos % (Auto) Baso % (Auto) Lymph # (Auto) [place] # (Auto) Baso # (Auto) Total Counted Seg Neutrophils % (38-70) % Band Neutrophils % (3-7) % Lymphocytes % (Manual) (25-45) % Monocytes % (Manual) (2-11) % Metamyelocytes % (-0) % Myelocytes % (-0) % Neutrophils # (Manual) (0437-4840) /uL RBC Morphology Hypochromasia Poikilocytosis Anisocytosis Microcytosis Ovalocytes PT (10.1-12.7) SECONDS INR (0.9-1.3) APTT (26.4-36.2) SECONDS Sodium (137-145) mmol/L Potassium (3.4-5.1) mmol/L Chloride (98-107) mmol/L Carbon Dioxide (22-32) mmol/L BUN (9-20) mg/dL Creatinine (0.66-1.25) mg/dL Estimated GFR (>60) mL/min BUN/Creatinine Ratio (6-22) Glucose (70-100) mg/dL Lactate 1.7 (0.7-2.1) mmol/L Calcium (8.4-10.2) mg/dL Total Bilirubin (0.2-1.3) mg/dL AST (17-59) IU/L ALT (21-72) IU/L Alkaline Phosphatase (38-126) U/L Total Protein (6.3-8.2) g/dL Albumin (3.5-5.0) g/dL Globulin (1.7-4.1) g/dL Albumin/Globulin Ratio (1.0-2.8) Urine RBC 1-5/hpf (0-5/HPF) Urine WBC 0-1/hpf (0-5/HPF) Ur Squamous Epith Cells 0-1 /hpf (0-5/HPF) Urine Bacteria None seen (None) Ur Culture Indicated? Cult not indicated Urine Dip Bedside Urine Glucose Negative Bedside Urine Bilirubin - Negative Bedside Urine Ketone - Negative Urine Specific [place] 1.025 Bedside Urine Occult Blood ++ Bedside Urine pH 5.0 Bedside Urine Protein +/- 15 Bedside Urine Urobilinogen - Negative Bedside Urine Nitrite - Negative Bedside Urine Leukocytes - Negative Esterase Discharge Plan Departure Patient Disposition: Home Clinical Impression: Neutrophilic leukocytosis Discharge Date/Time: 01/13/19 20:53 Interventions: ED Discharge Assessment Last Done: 01/13/19 20:51 Instructions: DI for Leukocytosis Activity Restrictions/Additional Instructions: As we talked about, there is no clear evidence of infection on your testing today, i.e. and new pneumonia, urinary infection, etc, and this is also supported by the fact that you have not been sick or had a fever. Your white cell count may be elevated due to the shot you have on the day of chemotherapy, or by the steroids you have taken even though it is not clear that they have caused this in the past. We have given you a dose of Augmentin, an antibiotic to cover for respiratory and other types of infection that does not typically interact with your other medicines such as digoxin. Please continue on this twice daily (I have sent the rest of the prescription to your pharmacy for you to pick up driver in the morning). If you get a fever or are feeling at all sick over the weekend, you should return to the emergency department as we discussed. Otherwise, please call Dr. Gee's office 1st thing on Wednesday, and let them know that you were seen in the emergency room at their direction today. Let them know that we spoke with Dr. Sosa who was on-call for him and wanted you to call on Wednesday to make follow-up arrangements. They had wanted you to be seen on Wednesday but if you are not able to get there they may be able to make other arrangements depending upon how you are feeling at that time. Prescriptions: New amoxicillin-pot clavulanate [Augmentin] 875-125 mg tablet 1 tab PO Q12H Qty: 14 RF: 0 No Action hydrocodone-acetaminophen 5-325 mg Tablet 1 tab PO Q12H RF: 0 calcium carbonate [Calcium 500] 500 mg calcium (1,250 mg) Tablet 1,000 mg PO DAILY RF: 0 dexamethasone 4 mg Tablet 4 mg PO Q12H RF: 0 furosemide 20 mg Tablet 40 mg PO DAILY RF: 0 enoxaparin [Lovenox] 100 mg/mL Syringe 100 mg SUBCUT Q12H RF: 0 ferrous gluconate 324 mg (37.5 mg iron) Tablet 324 mg PO DAILY RF: 0 multivitamin Tablet 1 tab PO DAILY RF: 0 metformin 500 mg Tablet 500 mg PO BID RF: 0 ondansetron HCl 8 mg Tablet 8 mg PO BID PRN (Reason: Nausea) RF: 0 metoprolol succinate [Toprol XL] 200 mg Tablet Extended Release 24 Hr 200 mg PO BID RF: 0 prochlorperazine maleate 10 mg Tablet 10 mg PO Q6-8H RF: 0 tramadol 50 mg Tablet 50 mg PO TID PRN (Reason: Pain (Scale Score 1-3)) RF: 0 calcium carbonate [Calcium 500] 500 mg calcium (1,250 mg) Tablet 500 mg DAILY RF: 0 leuprolide (6 month) 1 dose IM QMONTH RF: 0 Respironics Dreamstation BIPAP Qty: 1 RF: 0 lisinopril 20 mg tablet 10 mg PO DAILY RF: 0 aspirin 81 mg tablet,chewable 81 mg PO DAILY RF: 0 gabapentin 600 mg tablet 300 mg PO DAILY RF: 0 allopurinol 300 mg tablet 300 mg PO DAILY RF: 0 digoxin 250 mcg tablet 0.25 mg PO DAILY RF: 0 Referrals: Arvind Gee MD [Non-Staff] - Damien López MD [Primary Care Provider] - <Marcus Reis DO - Last Filed: 01/13/19 23:48> Cosign ED Attending Torstenature Attestation: I was available for consultation during this patient's emergency department encounter
--- NOTE | 2019-01-13 17:39 | ED_ITS ---
HPI - Recheck/Abnormal Lab/Rx <Rina Cordova PA-C - Last Filed: 01/13/19 21:11> General Chief Complaint: Recheck/Abnormal Lab/Rx Stated Complaint: chemo patient, states lab results are abnormal Time Seen by Provider: 01/13/19 17:20 Source: patient Mode of arrival: ambulatory Limitations: no limitations History of Present Illness HPI narrative: This 58-year-old gentleman states he was sent by oncology nurse due to abnormal labs today, he had a white count of 51.8, changed from 4 days a go. He is undergoing chemotherapy for prostate cancer. He states he is tired, but otherwise actually feeling quite well. He states that he had some diarrhea last week, but resolved 5 or 6 days ago. He denies abdominal pain, nausea or vomiting. He denies any cough, congestion or respiratory symptoms. He denies any chest pain or dyspnea. No new swelling or pain in the extremities. Denies any fever. He denies any new rash. He denies any urinary symptoms. He states that he was hospitalized a few weeks ago for fever respiratory symptoms. He denies any recent travel or exposures. He does have a history of DVT and PE, states PE was resolved on most recent scan. He is on Eliquis for this, also atrial fibrillation. He had last chemotherapy 2 days ago. No medication changes. He does not know which chemotherapy he is on, not on his med list that he brought from where he receives treatment. Related Data Home Medications Medication Instructions Recorded Confirmed allopurinol 300 mg tablet 300 mg PO DAILY 04/28/18 10/28/18 aspirin 81 mg chewable tablet 81 mg PO DAILY 04/28/18 10/28/18 digoxin 250 mcg tablet 0.25 mg PO DAILY 04/28/18 10/28/18 gabapentin 600 mg tablet 300 mg PO DAILY 04/28/18 10/28/18 lisinopril 20 mg tablet 10 mg PO DAILY 04/28/18 10/28/18 [email or web address] Dreamstation BIPAP #1 ea 10/27/18 10/28/18 leuprolide (6 month) 1 dose IM QMONTH 10/27/18 10/28/18 calcium carbonate [Calcium 500] 1,000 mg PO DAILY 10/28/18 10/28/18 calcium carbonate [Calcium 500] 500 mg DAILY 10/28/18 10/28/18 dexamethasone 4 mg PO Q12H 10/28/18 10/28/18 enoxaparin [Lovenox] 100 mg SUBCUT Q12H 10/28/18 10/28/18 ferrous gluconate 324 mg PO DAILY 10/28/18 10/28/18 furosemide 40 mg PO DAILY 10/28/18 10/28/18 hydrocodone-acetaminophen 1 tab PO Q12H 10/28/18 10/28/18 metformin 500 mg PO BID 10/28/18 10/28/18 metoprolol succinate [Toprol XL] 200 mg PO BID 10/28/18 10/28/18 multivitamin 1 tab PO DAILY 10/28/18 10/28/18 ondansetron HCl 8 mg PO BID PRN 10/28/18 10/28/18 prochlorperazine maleate 10 mg PO Q6-8H 10/28/18 10/28/18 tramadol 50 mg PO TID PRN 10/28/18 10/28/18 Previous Rx's Medication Instructions Recorded amoxicillin-pot clavulanate 1 tab PO Q12H #14 tab 01/13/19 [Augmentin] Allergies Allergy/AdvReac Type Severity Reaction Status Date / Time No Known Drug Allergies Allergy Verified 10/27/18 20:20 Review of Systems <Rina Cordova PA-C - Last Filed: 01/13/19 21:11> Review of Systems ROS Unobtainable: All systems reviewed & are unremarkable except as noted in HPI and below PFSH <Rina Cordova PA-C - Last Filed: 01/13/19 21:11> Medical History (Updated 01/13/19 @ 20:42 by Rina Cordova PA-C) Status post vasectomy (Chronic) Chronic back pain (Chronic) Pulmonary embolism (Resolved) Fatigue (Chronic) Atrial fibrillation with controlled ventricular rate (Chronic) Diabetes type 2, controlled (Chronic) Gout (Chronic) Prostate cancer (Chronic) Primary insomnia (Chronic) Obstructive sleep apnea of adult (Chronic) Surgical History (Updated 01/13/19 @ 17:36 by Rina Cordova PA-C) H/O hernia repair (Chronic) Social History details: single, lives with ex- in [place] household members: children lives independently: No caregiver/support person: Yes pets and animals: Yes (3 cats, couple jaquan) occupational status: unemployed Smoking Status: Former smoker alcohol intake: current Social History details: single, lives with ex- in [place] household members: children lives independently: No caregiver/support person: Yes pets and animals: Yes (3 cats, couple jaquan) occupational status: unemployed Smoking Status: Former smoker alcohol intake: current Exam <Rina Cordova PA-C - Last Filed: 01/13/19 21:11> Narrative Exam Narrative: GENERAL APPEARANCE: Patient sitting comfortably, in no distress. Somewhat pale EYES: PERRL, EOMI. ORAL CAVITY: Normal oropharynx. THROAT: Clear. NECK/THYROID: Neck supple, full range of motion, no cervical lymphadenopathy. LUNGS: Clear to auscultation bilaterally, no cough on exam. HEART: Irregular rate and rhythm without murmur ABDOMEN: Soft, nontender, nondistended, +bowel sounds x4 quadrants EXTREMITIES: Mild edema R, trace on L., no calf tenderness DERMATOLOGIC: No exanthem NEUROLOGIC: Alert, oriented, normal speech, gait, coordination Initial Vital Signs Initial Vital Signs: Vital Signs Temperature 97.8 F 01/13/19 17:25 Pulse Rate 113 H 01/13/19 17:25 Respiratory Rate 18 01/13/19 17:25 Blood Pressure 114/78 01/13/19 17:25 Pulse Oximetry 99 01/13/19 17:25 <Marcus Reis DO - Last Filed: 01/13/19 23:48> Initial Vital Signs Initial Vital Signs: Vital Signs Temperature 97.8 F 01/13/19 17:25 Pulse Rate 113 H 01/13/19 17:25 Respiratory Rate 18 01/13/19 17:25 Blood Pressure 114/78 01/13/19 17:25 Pulse Oximetry 99 01/13/19 17:25 Course <CHAI Larson Last Filed: 01/13/19 21:11> Additional Information: Patient does not have any evidence of acute infection on evaluation. There is some likely atelectasis on his chest x-ray verses bibasilar pneumonia though I reviewed chest x-ray with Dr. Reis and we do not see any infiltrate or acute changes. He does not have cough or respiratory symptoms. No fever. No urinary symptoms. I spoke with Dr. Robin Sosa, control panel operator crude unit for patient's oncologist Dr. Berry Gee, and reviewed and findings. Patient does get dexamethasone the day prior, of, and following chemotherapy, and did get probable Neulasta injection [address] Sosa suspects these could be the cause, but not clear at least on the lab work that we have here that this has occurred in the past on same medications. Advised getting patient on antibiotic for now requested that he call the clinic 1st thing on Wednesday for follow-up. He is on multiple additional medicines including digoxin and Eliquis, so placed on Augmentin. Reviewed importance of immediate return with patient should he develop new symptoms over the weekend including fever, respiratory symptoms, urinary symptoms etc, and he is agreeable. We have drawn blood cultures which are pending. Orders Ordered: ED Orders 01/13/19 17:30 XR chest 2V Stat 01/13/19 17:51 Complete Blood Count AUTO DIFF Stat Comprehensive Metabolic Panel Stat Lactate (Lactic Acid) Stat Partial Thromboplastin Time Stat Prothrombin Time INR Stat 01/13/19 18:00 Blood Culture Stat 01/13/19 18:55 Urine Microscopic Stat Discontinued Medications Amoxicillin/Clavulanate Potassium (Augmentin 875-125 Mg) 1 tab PO NOW ONE Stop: 01/13/19 20:18 Last Admin: 01/13/19 20:29 Dose: 1 tab Sodium Chloride (Normal Saline 0.9%) 1,000 mls @ 1,000 mls/hr IV BOLUS ONE Stop: 01/13/19 18:30 Last Infusion: 01/13/19 19:40 Dose: 0 mls/hr Admin: 01/13/19 18:32 Dose: 1,000 mls/hr Vital Signs - 8 hr 01/13/19 17:25 01/13/19 18:00 01/13/19 19:37 Temperature 97.8 F 97.4 F L Pulse Rate 113 H 94 H 86 Respiratory Rate 18 16 19 Blood Pressure 114/78 Blood Pressure [Left Arm] 102/61 103/73 Pulse Oximetry 99 99 98 01/13/19 20:00 01/13/19 20:33 01/13/19 20:51 Temperature Pulse Rate 83 98 H 98 H Respiratory Rate 18 20 18 Blood Pressure 100/66 Blood Pressure [Left Arm] 100/77 100/66 Pulse Oximetry 99 100 99 <Marcus Reis DO - Last Filed: 01/13/19 23:48> Orders Ordered: ED Orders 01/13/19 17:30 XR chest 2V Stat 01/13/19 17:51 Complete Blood Count AUTO DIFF Stat Comprehensive Metabolic Panel Stat Lactate (Lactic Acid) Stat Partial Thromboplastin Time Stat Prothrombin Time INR Stat 01/13/19 18:00 Blood Culture Stat 01/13/19 18:55 Urine Microscopic Stat Discontinued Medications Amoxicillin/Clavulanate Potassium (Augmentin 875-125 Mg) 1 tab PO NOW ONE Stop: 01/13/19 20:18 Last Admin: 01/13/19 20:29 Dose: 1 tab Sodium Chloride (Normal Saline 0.9%) 1,000 mls @ 1,000 mls/hr IV BOLUS ONE Stop: 01/13/19 18:30 Last Infusion: 01/13/19 19:40 Dose: 0 mls/hr Admin: 01/13/19 18:32 Dose: 1,000 mls/hr Vital Signs - 8 hr 01/13/19 17:25 01/13/19 18:00 01/13/19 19:37 Temperature 97.8 F 97.4 F L Pulse Rate 113 H 94 H 86 Respiratory Rate 18 16 19 Blood Pressure 114/78 Blood Pressure [Left Arm] 102/61 103/73 Pulse Oximetry 99 99 98 01/13/19 20:00 01/13/19 20:33 01/13/19 20:51 Temperature Pulse Rate 83 98 H 98 H Respiratory Rate 18 20 18 Blood Pressure 100/66 Blood Pressure [Left Arm] 100/77 100/66 Pulse Oximetry 99 100 99 MDM - Recheck/Abnormal Lab/Rx <Rina Cordova PA-C - Last Filed: 01/13/19 21:11> Lab Data Attestation: I reviewed the patient's lab results. Result diagrams: 01/13/19 17:51 01/13/19 17:51 Lab Results 01/13/19 01/13/19 01/13/19 Range/Units 17:51 17:51 17:51 WBC 47.9 H* (4.5-11.0) X10^3/uL RBC 4.28 L (4.5-5.9) X10^6/uL Hgb 10.7 L (13.5-17.5) g/dL Hct 33.8 L (41-53) % MCV 79.0 L (80-100) fL MCH 25.0 L (26-34) PG MCHC 31.6 (30-36) % RDW 20.1 H (11.6-14.8) % Plt Count 282 (150-400) X10^3/uL Neut % (Auto) Not Reportable Lymph % (Auto) Not Reportable [place] % (Auto) Not Reportable Eos % (Auto) Not Reportable Baso % (Auto) Not Reportable Lymph # (Auto) Not Reportable [place] # (Auto) Not Reportable Baso # (Auto) Not Reportable Total Counted 100 Seg Neutrophils % 74.0 H (38-70) % Band Neutrophils % 11.0 H (3-7) % Lymphocytes % (Manual) 5.0 L (25-45) % Monocytes % (Manual) 2.0 (2-11) % Metamyelocytes % 5.0 H (-0) % Myelocytes % 3.0 H (-0) % Neutrophils # (Manual) 98689 H (9423-1466) /uL RBC Morphology See below Hypochromasia 1+ H Poikilocytosis 2+ H Anisocytosis 1+ H Microcytosis 1+ H Ovalocytes 1+ H PT 17.5 H (10.1-12.7) SECONDS INR 1.5 H (0.9-1.3) APTT 33 (26.4-36.2) SECONDS Sodium 136 L (137-145) mmol/L Potassium 4.7 (3.4-5.1) mmol/L Chloride 102 (98-107) mmol/L Carbon Dioxide 26 (22-32) mmol/L BUN 16 (9-20) mg/dL Creatinine 0.60 L (0.66-1.25) mg/dL Estimated GFR > 60.0 (>60) mL/min BUN/Creatinine Ratio 26.7 H (6-22) Glucose 90 (70-100) mg/dL Lactate (0.7-2.1) mmol/L Calcium 8.0 L (8.4-10.2) mg/dL Total Bilirubin 0.7 (0.2-1.3) mg/dL AST 72 H (17-59) IU/L ALT 117 H (21-72) IU/L Alkaline Phosphatase 170 H (38-126) U/L Total Protein 6.0 L (6.3-8.2) g/dL Albumin 3.4 L (3.5-5.0) g/dL Globulin 2.6 (1.7-4.1) g/dL Albumin/Globulin Ratio 1.3 (1.0-2.8) Urine RBC (0-5/HPF) Urine WBC (0-5/HPF) Ur Squamous Epith Cells (0-5/HPF) Urine Bacteria (None) Ur Culture Indicated? 01/13/19 01/13/19 Range/Units 17:51 18:55 WBC (4.5-11.0) X10^3/uL RBC (4.5-5.9) X10^6/uL Hgb (13.5-17.5) g/dL Hct (41-53) % MCV (80-100) fL MCH (26-34) PG MCHC (30-36) % RDW (11.6-14.8) % Plt Count (150-400) X10^3/uL Neut % (Auto) Lymph % (Auto) [place] % (Auto) Eos % (Auto) Baso % (Auto) Lymph # (Auto) [place] # (Auto) Baso # (Auto) Total Counted Seg Neutrophils % (38-70) % Band Neutrophils % (3-7) % Lymphocytes % (Manual) (25-45) % Monocytes % (Manual) (2-11) % Metamyelocytes % (-0) % Myelocytes % (-0) % Neutrophils # (Manual) (2312-4599) /uL RBC Morphology Hypochromasia Poikilocytosis Anisocytosis Microcytosis Ovalocytes PT (10.1-12.7) SECONDS INR (0.9-1.3) APTT (26.4-36.2) SECONDS Sodium (137-145) mmol/L Potassium (3.4-5.1) mmol/L Chloride (98-107) mmol/L Carbon Dioxide (22-32) mmol/L BUN (9-20) mg/dL Creatinine (0.66-1.25) mg/dL Estimated GFR (>60) mL/min BUN/Creatinine Ratio (6-22) Glucose (70-100) mg/dL Lactate 1.7 (0.7-2.1) mmol/L Calcium (8.4-10.2) mg/dL Total Bilirubin (0.2-1.3) mg/dL AST (17-59) IU/L ALT (21-72) IU/L Alkaline Phosphatase (38-126) U/L Total Protein (6.3-8.2) g/dL Albumin (3.5-5.0) g/dL Globulin (1.7-4.1) g/dL Albumin/Globulin Ratio (1.0-2.8) Urine RBC 1-5/hpf (0-5/HPF) Urine WBC 0-1/hpf (0-5/HPF) Ur Squamous Epith Cells 0-1 /hpf (0-5/HPF) Urine Bacteria None seen (None) Ur Culture Indicated? Cult not indicated Urine Dip Bedside Urine Glucose Negative Bedside Urine Bilirubin - Negative Bedside Urine Ketone - Negative Urine Specific [place] 1.025 Bedside Urine Occult Blood ++ Bedside Urine pH 5.0 Bedside Urine Protein +/- 15 Bedside Urine Urobilinogen - Negative Bedside Urine Nitrite - Negative Bedside Urine Leukocytes - Negative Esterase Imaging Data Chest x-ray: Radiologist's impression: [place] [address] XRay Report Signed Patient: Roel Jansen LMR#: [id number] : 1960Acct:[id number] Age/Sex: 58 / MDate of Service: 01/13/19 Loc: ED Accession Number: [id number] Procedure: XR chest 2V Ordering Provider: Rina Cordova P.A-C PROCEDURE: XR CHEST 2V INDICATIONS: chemo pt, elevated white count TECHNIQUE: 2 views of the chest were acquired. COMPARISON: [facility], CR, XR CHEST 1V, 10/28/2018, 12:34. [facility], CR, XR CHEST 1V, 10/27/2018, 20:40. [facility], CR, CHEST 1 VIEW, 05/05/2007, 14:24. [facility], CR, CHEST 1 VIEW, 04/27/2007, 0:54. FINDINGS: Surgical changes and devices: None. Lungs and pleura: There is similar chronic elevation of the right hemidiaphragm, which obscures the right lower lobe. No pleural effusion or pneumothorax. Mild interstitial prominence appears similar to prior exam. Mild bibasilar pulmonary opacities are again noted. There is prominence of the pulmonary vasculature. Mediastinum: Cardiac contours are partially obscured by the elevated right hemidiaphragm. Cardiac silhouette is otherwise within normal limits for size and morphology. Mediastinal silhouette is within normal limits for size. Bones and chest wall: No acute osseous abnormality. IMPRESSION: 1. Mild bibasilar opacities most consistent with atelectasis, less likely pneu monia. 2. Chronic elevation of the right hemidiaphragm again noted, which obscures the right lower lobe. 3. Mild chronic interstitial prominence is similar appearance to prior exam, and may represent a degree of increased volume status/trace pulmonary edema versus sequela of chronic lung disease. Dictated by: Vladimir Draper M.D. on 01/13/2019 at 18:08 Approved by: Vladimir Draper M.D. on 01/13/2019 at 18:11 <Marcus Reis DO - Last Filed: 01/13/19 23:48> Lab Data Lab Results 01/13/19 01/13/19 01/13/19 Range/Units 17:51 17:51 17:51 WBC 47.9 H* (4.5-11.0) X10^3/uL RBC 4.28 L (4.5-5.9) X10^6/uL Hgb 10.7 L (13.5-17.5) g/dL Hct 33.8 L (41-53) % MCV 79.0 L (80-100) fL MCH 25.0 L (26-34) PG MCHC 31.6 (30-36) % RDW 20.1 H (11.6-14.8) % Plt Count 282 (150-400) X10^3/uL Neut % (Auto) Not Reportable Lymph % (Auto) Not Reportable [place] % (Auto) Not Reportable Eos % (Auto) Not Reportable Baso % (Auto) Not Reportable Lymph # (Auto) Not Reportable [place] # (Auto) Not Reportable Baso # (Auto) Not Reportable Total Counted 100 Seg Neutrophils % 74.0 H (38-70) % Band Neutrophils % 11.0 H (3-7) % Lymphocytes % (Manual) 5.0 L (25-45) % Monocytes % (Manual) 2.0 (2-11) % Metamyelocytes % 5.0 H (-0) % Myelocytes % 3.0 H (-0) % Neutrophils # (Manual) 79207 H (9579-5192) /uL RBC Morphology See below Hypochromasia 1+ H Poikilocytosis 2+ H Anisocytosis 1+ H Microcytosis 1+ H Ovalocytes 1+ H PT 17.5 H (10.1-12.7) SECONDS INR 1.5 H (0.9-1.3) APTT 33 (26.4-36.2) SECONDS Sodium 136 L (137-145) mmol/L Potassium 4.7 (3.4-5.1) mmol/L Chloride 102 (98-107) mmol/L Carbon Dioxide 26 (22-32) mmol/L BUN 16 (9-20) mg/dL Creatinine 0.60 L (0.66-1.25) mg/dL Estimated GFR > 60.0 (>60) mL/min BUN/Creatinine Ratio 26.7 H (6-22) Glucose 90 (70-100) mg/dL Lactate (0.7-2.1) mmol/L Calcium 8.0 L (8.4-10.2) mg/dL Total Bilirubin 0.7 (0.2-1.3) mg/dL AST 72 H (17-59) IU/L ALT 117 H (21-72) IU/L Alkaline Phosphatase 170 H (38-126) U/L Total Protein 6.0 L (6.3-8.2) g/dL Albumin 3.4 L (3.5-5.0) g/dL Globulin 2.6 (1.7-4.1) g/dL Albumin/Globulin Ratio 1.3 (1.0-2.8) Urine RBC (0-5/HPF) Urine WBC (0-5/HPF) Ur Squamous Epith Cells (0-5/HPF) Urine Bacteria (None) Ur Culture Indicated? 01/13/19 01/13/19 Range/Units 17:51 18:55 WBC (4.5-11.0) X10^3/uL RBC (4.5-5.9) X10^6/uL Hgb (13.5-17.5) g/dL Hct (41-53) % MCV (80-100) fL MCH (26-34) PG MCHC (30-36) % RDW (11.6-14.8) % Plt Count (150-400) X10^3/uL Neut % (Auto) Lymph % (Auto) [place] % (Auto) Eos % (Auto) Baso % (Auto) Lymph # (Auto) [place] # (Auto) Baso # (Auto) Total Counted Seg Neutrophils % (38-70) % Band Neutrophils % (3-7) % Lymphocytes % (Manual) (25-45) % Monocytes % (Manual) (2-11) % Metamyelocytes % (-0) % Myelocytes % (-0) % Neutrophils # (Manual) (0678-3361) /uL RBC Morphology Hypochromasia Poikilocytosis Anisocytosis Microcytosis Ovalocytes PT (10.1-12.7) SECONDS INR (0.9-1.3) APTT (26.4-36.2) SECONDS Sodium (137-145) mmol/L Potassium (3.4-5.1) mmol/L Chloride (98-107) mmol/L Carbon Dioxide (22-32) mmol/L BUN (9-20) mg/dL Creatinine (0.66-1.25) mg/dL Estimated GFR (>60) mL/min BUN/Creatinine Ratio (6-22) Glucose (70-100) mg/dL Lactate 1.7 (0.7-2.1) mmol/L Calcium (8.4-10.2) mg/dL Total Bilirubin (0.2-1.3) mg/dL AST (17-59) IU/L ALT (21-72) IU/L Alkaline Phosphatase (38-126) U/L Total Protein (6.3-8.2) g/dL Albumin (3.5-5.0) g/dL Globulin (1.7-4.1) g/dL Albumin/Globulin Ratio (1.0-2.8) Urine RBC 1-5/hpf (0-5/HPF) Urine WBC 0-1/hpf (0-5/HPF) Ur Squamous Epith Cells 0-1 /hpf (0-5/HPF) Urine Bacteria None seen (None) Ur Culture Indicated? Cult not indicated Urine Dip Bedside Urine Glucose Negative Bedside Urine Bilirubin - Negative Bedside Urine Ketone - Negative Urine Specific [place] 1.025 Bedside Urine Occult Blood ++ Bedside Urine pH 5.0 Bedside Urine Protein +/- 15 Bedside Urine Urobilinogen - Negative Bedside Urine Nitrite - Negative Bedside Urine Leukocytes - Negative Esterase Discharge Plan Departure Patient Disposition: Home Clinical Impression: Neutrophilic leukocytosis Discharge Date/Time: 01/13/19 20:53 Interventions: ED Discharge Assessment Last Done: 01/13/19 20:51 Instructions: DI for Leukocytosis Activity Restrictions/Additional Instructions: As we talked about, there is no clear evidence of infection on your testing today, i.e. and new pneumonia, urinary infection, etc, and this is also supported by the fact that you have not been sick or had a fever. Your white cell count may be elevated due to the shot you have on the day of chemotherapy, or by the steroids you have taken even though it is not clear that they have caused this in the past. We have given you a dose of Augmentin, an antibiotic to cover for respiratory and other types of infection that does not typically interact with your other medicines such as digoxin. Please continue on this twice daily (I have sent the rest of the prescription to your pharmacy for you to cone picker in the morning). If you get a fever or are feeling at all sick over the weekend, you should return to the emergency department as we discussed. Otherwise, please call Dr. Gee's office 1st thing on Wednesday, and let them know that you were seen in the emergency room at their direction today. Let them know that we spoke with Dr. Sosa who was on-call for him and wanted you to call on Wednesday to make follow-up arrangements. They had wanted you to be seen on Wednesday but if you are not able to get there they may be able to make other arrangements depending upon how you are feeling at that time. Prescriptions: New amoxicillin-pot clavulanate [Augmentin] 875-125 mg tablet 1 tab PO Q12H Qty: 14 RF: 0 No Action hydrocodone-acetaminophen 5-325 mg Tablet 1 tab PO Q12H RF: 0 calcium carbonate [Calcium 500] 500 mg calcium (1,250 mg) Tablet 1,000 mg PO DAILY RF: 0 dexamethasone 4 mg Tablet 4 mg PO Q12H RF: 0 furosemide 20 mg Tablet 40 mg PO DAILY RF: 0 enoxaparin [Lovenox] 100 mg/mL Syringe 100 mg SUBCUT Q12H RF: 0 ferrous gluconate 324 mg (37.5 mg iron) Tablet 324 mg PO DAILY RF: 0 multivitamin Tablet 1 tab PO DAILY RF: 0 metformin 500 mg Tablet 500 mg PO BID RF: 0 ondansetron HCl 8 mg Tablet 8 mg PO BID PRN (Reason: Nausea) RF: 0 metoprolol succinate [Toprol XL] 200 mg Tablet Extended Release 24 Hr 200 mg PO BID RF: 0 prochlorperazine maleate 10 mg Tablet 10 mg PO Q6-8H RF: 0 tramadol 50 mg Tablet 50 mg PO TID PRN (Reason: Pain (Scale Score 1-3)) RF: 0 calcium carbonate [Calcium 500] 500 mg calcium (1,250 mg) Tablet 500 mg DAILY RF: 0 leuprolide (6 month) 1 dose IM QMONTH RF: 0 Respironics Dreamstation BIPAP Qty: 1 RF: 0 lisinopril 20 mg tablet 10 mg PO DAILY RF: 0 aspirin 81 mg tablet,chewable 81 mg PO DAILY RF: 0 gabapentin 600 mg tablet 300 mg PO DAILY RF: 0 allopurinol 300 mg tablet 300 mg PO DAILY RF: 0 digoxin 250 mcg tablet 0.25 mg PO DAILY RF: 0 Referrals: Arvind Gee MD [Non-Staff] - Damien López MD [Primary Care Provider] - <Marcus Reis DO - Last Filed: 01/13/19 23:48> Cosign ED Attending Torstenature Attestation: I was available for consultation during this patient's emergency department encounter
[2019-01-13 18:00] VITALS: BP 102/61; PULSE 94; RESP 16; O2SAT 99
[2019-01-13 18:05] LABS: INR 1.5 (0.9-1.3); Prothrombin Time 17.5 SECONDS (10.1-12.7)
[2019-01-13 18:08] LABS: PTT Partial Thromboplastin Tim 33 SECONDS (26.4-36.2)
[2019-01-13 18:12] LABS: Alanine Aminotransferase 117 IU/L (21-72); Albumin 3.4 g/dL (3.5-5.0); Albumin Globulin Ratio 1.3 (1.0-2.8); Alkaline Phosphatase 170 U/L (38-126); Aspartate Aminotransferase 72 IU/L (17-59); BUN Creatinine Ratio 26.7 (6-22); Bilirubin Total 0.7 mg/dL (0.2-1.3); Blood Urea Nitrogen 16 mg/dL (9-20); Carbon Dioxide 26 mmol/L (22-32); Chloride 102 mmol/L (98-107); Estimated Glomerular Filt Rate > 60.0 mL/min (>60); Globulin 2.6 g/dL (1.7-4.1); Glucose 90 mg/dL (70-100); HEMOLYSIS < 15 (0-50); Potassium 4.7 mmol/L (3.4-5.1); Sodium 136 mmol/L (137-145)
[2019-01-13 18:13] LABS: Lactate (Lactic Acid) 1.7 mmol/L (0.7-2.1)
[2019-01-13 18:19] LABS: Hematocrit 33.8 % (41-53); Hemoglobin 10.7 g/dL (13.5-17.5); Mean Corpuscular HGB Conc 31.6 % (30-36); Platelet Count 282 X10^3/uL (150-400); Red Blood Cell Count 4.28 X10^6/uL (4.5-5.9); Red Cell Distribution Width 20.1 % (11.6-14.8)
[2019-01-13 18:21] LABS: Add Manual Diff / Slide Review YES; White Blood Cell Count 47.9 X10^3/uL (4.5-11.0)
[2019-01-13 18:28] LABS: Neutrophils Absolute Manual 40715 /uL (3000-5900); Total Cells Counted 100
[2019-01-13 18:30] LABS: Anisocytosis 1+; Hypochromasia 1+; Poikilocytosis 2+
[2019-01-13 18:31] LABS: Microcytosis 1+; Ovalocytes 1+
[2019-01-13] MEDS: SODIUM CHLORIDE 0.9% 1,000 ML 1000 ML IV (18:32)
[2019-01-13 19:27] LABS: Bacteria Urine None Seen
[2019-01-13 19:37] VITALS: BP 103/73; PULSE 86; RESP 19; TEMP 36.3; O2SAT 98
[2019-01-13 19:37] LABS: Culture Indicated Urine Cult Not Indicated; RBC Urine 1-5/HPF (0-5/HPF); Squamous Epithelial Cell Urine 0-1 /HPF (0-5/HPF); WBC Urine 0-1/HPF (0-5/HPF)
[2019-01-13 20:00] VITALS: BP 100/77; PULSE 83; RESP 18; O2SAT 99
[2019-01-13] MEDS: AMOXICILLIN/CLAV 875/125 MG 1 TAB PO (20:29)
[2019-01-13 20:33] VITALS: BP 100/66; PULSE 98; RESP 20; O2SAT 100
[2019-01-13 20:51] VITALS: BP 100/66; PULSE 98; RESP 18; O2SAT 99
== END 2019-01-13 20:53 | disposition home or self-care (01) ==
PROVIDERS: Emergency Provider Internal Medicine; PCP Internal Medicine
DX: D72.9 Disorder of white blood cells, unspecified (principal); C61 Malignant neoplasm of prostate; Z86.711 Personal history of pulmonary embolism; Z92.21 Personal history of antineoplastic chemotherapy; Z79.01 Long term (current) use of anticoagulants
CPT/HCPCS: 36415; 71046; 80048; 80053; 81003; 81015; 83605; 85025; 85610; 85730; 87040; 96360; 99283; 99284

== ENCOUNTER → 2019-01-17 10:28 | Outpatient (CLI) | payer OTHER, MEDICAID, SELFPAY ==
[2018-10-28 00:59] VITALS: BMI 31.4
[2019-01-17 11:45] LABS: Hematocrit 34.9 % (41-53); Mean Corpuscular HGB Conc 31.5 % (30-36); Mean Corpuscular Hemoglobin 25.3 PG (26-34); Mean Corpuscular Volume 80.4 fL (80-100); Platelet Count 243 X10^3/uL (150-400); Red Blood Cell Count 4.34 X10^6/uL (4.5-5.9); Red Cell Distribution Width 19.8 % (11.6-14.8); White Blood Cell Count 5.1 X10^3/uL (4.5-11.0)
[2019-01-17 11:51] LABS: Add Manual Diff / Slide Review YES
[2019-01-17 12:33] LABS: Neutrophils Absolute Manual 3519 /uL (3000-5900); Total Cells Counted 100
[2019-01-17 12:34] LABS: Anisocytosis 1+; Poikilocytosis 1+
[2019-01-17 12:35] LABS: Ovalocytes 1+
[2019-01-17 14:02] LABS: HEMOLYSIS < 15 (0-50)
[2019-01-17 14:07] LABS: Alanine Aminotransferase 92 IU/L (21-72); Albumin 3.3 g/dL (3.5-5.0); Albumin Globulin Ratio 1.3 (1.0-2.8); Alkaline Phosphatase 153 U/L (38-126); Aspartate Aminotransferase 37 IU/L (17-59); Bilirubin Total 0.6 mg/dL (0.2-1.3); Blood Urea Nitrogen 6 mg/dL (9-20); Calcium 8.1 mg/dL (8.4-10.2); Carbon Dioxide 24 mmol/L (22-32); Chloride 102 mmol/L (98-107); Cholesterol 100 mg/dL (140-199); Estimated Glomerular Filt Rate > 60.0 mL/min (>60); Globulin 2.5 g/dL (1.7-4.1); Glucose 115 mg/dL (70-100); HDL Cholesterol 28 mg/dL (40-60); LDL Cholesterol Calculated 49 mg/dL (<100); Potassium 4.7 mmol/L (3.4-5.1); Sodium 135 mmol/L (137-145); Total Protein 5.8 g/dL (6.3-8.2); Triglycerides 116 mg/dL (35-150)
[2019-01-17 16:29] LABS: Prostate Specific Antigen 38.1 ng/mL (0.10-4.00)
== END ==
PROVIDERS: Family Provider Nurse Practitioner Gerontology; PCP Internal Medicine; Referring Provider Internal Medicine; Visit Provider Internal Medicine Medical Oncology
DX: C61 Malignant neoplasm of prostate (principal); E78.00 Pure hypercholesterolemia, unspecified
CPT/HCPCS: 36415; 80053; 80061; 84153; 85025

== ENCOUNTER → 2019-02-09 08:25 | Outpatient (CLI) | payer OTHER, MEDICAID, SELFPAY ==
[2018-10-28 00:59] VITALS: BMI 31.4
[2019-02-09 08:50] LABS: Hematocrit 33.6 % (41-53); Hemoglobin 10.8 g/dL (13.5-17.5); Mean Corpuscular Hemoglobin 24.9 PG (26-34); Mean Corpuscular Volume 77.7 fL (80-100); Platelet Count 270 X10^3/uL (150-400); Red Blood Cell Count 4.33 X10^6/uL (4.5-5.9); Red Cell Distribution Width 19.4 % (11.6-14.8); White Blood Cell Count 13.9 X10^3/uL (4.5-11.0)
[2019-02-09 08:53] LABS: Add Manual Diff / Slide Review YES
[2019-02-09 09:06] LABS: Alanine Aminotransferase 31 IU/L (21-72); Albumin 3.3 g/dL (3.5-5.0); Albumin Globulin Ratio 1.4 (1.0-2.8); Alkaline Phosphatase 135 U/L (38-126); Aspartate Aminotransferase 23 IU/L (17-59); BUN Creatinine Ratio 21.7 (6-22); Bilirubin Total 0.5 mg/dL (0.2-1.3); Blood Urea Nitrogen 13 mg/dL (9-20); Calcium 8.3 mg/dL (8.4-10.2); Carbon Dioxide 28 mmol/L (22-32); Chloride 98 mmol/L (98-107); Estimated Glomerular Filt Rate > 60.0 mL/min (>60); Globulin 2.3 g/dL (1.7-4.1); Glucose 99 mg/dL (70-100); HEMOLYSIS 15 (0-50); Potassium 4.5 mmol/L (3.4-5.1); Sodium 135 mmol/L (137-145); Total Protein 5.6 g/dL (6.3-8.2)
[2019-02-09 09:22] LABS: Neutrophils Absolute Manual 11537 /uL (3000-5900); Total Cells Counted 100
[2019-02-09 09:23] LABS: Anisocytosis 1+; Poikilocytosis 1+
[2019-02-09 09:36] LABS: Prostate Specific Antigen 39.9 ng/mL (0.10-4.00)
== END ==
PROVIDERS: Family Provider Internal Medicine; PCP Internal Medicine; Visit Provider Internal Medicine Medical Oncology
DX: C61 Malignant neoplasm of prostate (principal)
CPT/HCPCS: 36415; 80053; 84153; 85025

== ENCOUNTER → 2019-02-20 08:07 | Outpatient (CLI) | payer OTHER, MEDICAID, SELFPAY ==
[2018-10-28 00:59] VITALS: BMI 31.4
[2019-02-20 08:29] LABS: Add Manual Diff / Slide Review NO; Basophils Absolute Auto 100 /uL (0-100); Basophils Percent Auto 0.8 % (0-2); Eosinophils Absolute Auto 0 /uL (0-450); Eosinophils Percent Auto 0.2 % (2-4); Hematocrit 34.5 % (41-53); Hemoglobin 11.1 g/dL (13.5-17.5); Lymphocytes Absolute Auto 1400 /uL (1100-4500); Lymphocytes Percent Auto 16.6 % (25-40); Mean Corpuscular HGB Conc 32.2 % (30-36); Mean Corpuscular Hemoglobin 24.8 PG (26-34); Monocytes Absolute Auto 800 /uL (0-900); Monocytes Percent Auto 8.7 % (3-14); Neutrophils Absolute Auto 6400 /uL (1500-7000); Neutrophils Percent Auto 73.7 % (50-75); Platelet Count 201 X10^3/uL (150-400); Red Blood Cell Count 4.49 X10^6/uL (4.5-5.9); White Blood Cell Count 8.7 X10^3/uL (4.5-11.0)
[2019-02-20 08:50] LABS: Alanine Aminotransferase 33 IU/L (21-72); Albumin 3.3 g/dL (3.5-5.0); Albumin Globulin Ratio 1.3 (1.0-2.8); Alkaline Phosphatase 170 U/L (38-126); Aspartate Aminotransferase 24 IU/L (17-59); Bilirubin Total 0.5 mg/dL (0.2-1.3); Blood Urea Nitrogen 9 mg/dL (9-20); Carbon Dioxide 25 mmol/L (22-32); Chloride 101 mmol/L (98-107); Estimated Glomerular Filt Rate > 60.0 mL/min (>60); Globulin 2.5 g/dL (1.7-4.1); Glucose 89 mg/dL (70-100); HEMOLYSIS < 15 (0-50); Potassium 3.6 mmol/L (3.4-5.1); Sodium 136 mmol/L (137-145); Total Protein 5.8 g/dL (6.3-8.2)
[2019-02-20 09:21] LABS: Prostate Specific Antigen 39.4 ng/mL (0.10-4.00)
== END ==
PROVIDERS: Family Provider Internal Medicine; PCP Internal Medicine; Visit Provider Internal Medicine Medical Oncology
DX: C61 Malignant neoplasm of prostate (principal)
CPT/HCPCS: 36415; 80053; 84153; 85025

== ENCOUNTER → 2019-03-02 10:10 | Outpatient (CLI) | payer OTHER, MEDICAID, SELFPAY ==
[2018-10-28 00:59] VITALS: BMI 31.4
[2019-03-02 11:03] LABS: Add Manual Diff / Slide Review NO; Basophils Absolute Auto 100 /uL (0-100); Basophils Percent Auto 0.5 % (0-2); Eosinophils Absolute Auto 100 /uL (0-450); Eosinophils Percent Auto 0.5 % (2-4); Hematocrit 33.4 % (41-53); Hemoglobin 10.6 g/dL (13.5-17.5); Lymphocytes Absolute Auto 1500 /uL (1100-4500); Lymphocytes Percent Auto 13.6 % (25-40); Mean Corpuscular HGB Conc 31.6 % (30-36); Mean Corpuscular Hemoglobin 24.7 PG (26-34); Mean Corpuscular Volume 78.2 fL (80-100); Monocytes Absolute Auto 1000 /uL (0-900); Monocytes Percent Auto 9.1 % (3-14); Neutrophils Absolute Auto 8300 /uL (1500-7000); Neutrophils Percent Auto 76.3 % (50-75); Platelet Count 229 X10^3/uL (150-400); Red Blood Cell Count 4.28 X10^6/uL (4.5-5.9); White Blood Cell Count 10.8 X10^3/uL (4.5-11.0)
[2019-03-02 11:17] LABS: Alanine Aminotransferase 31 IU/L (21-72); Albumin 3.1 g/dL (3.5-5.0); Albumin Globulin Ratio 1.3 (1.0-2.8); Alkaline Phosphatase 121 U/L (38-126); Aspartate Aminotransferase 22 IU/L (17-59); Bilirubin Total 0.5 mg/dL (0.2-1.3); Blood Urea Nitrogen 8 mg/dL (9-20); Calcium 7.7 mg/dL (8.4-10.2); Carbon Dioxide 25 mmol/L (22-32); Chloride 100 mmol/L (98-107); Estimated Glomerular Filt Rate > 60.0 mL/min (>60); Globulin 2.3 g/dL (1.7-4.1); Glucose 108 mg/dL (70-100); HEMOLYSIS < 15 (0-50); Potassium 3.9 mmol/L (3.4-5.1); Sodium 133 mmol/L (137-145); Total Protein 5.4 g/dL (6.3-8.2)
[2019-03-02 11:47] LABS: Prostate Specific Antigen 42.6 ng/mL (0.10-4.00)
== END ==
PROVIDERS: Family Provider Internal Medicine; PCP Internal Medicine; Visit Provider Internal Medicine Medical Oncology
DX: C61 Malignant neoplasm of prostate (principal)
CPT/HCPCS: 36415; 80053; 84153; 85025

== ENCOUNTER → 2019-03-08 07:38 | Outpatient (CLI) | payer OTHER, MEDICAID, SELFPAY ==
[2018-10-28 00:59] VITALS: BMI 31.4
--- NOTE | 2019-03-08 | DI.ECHO.S_ITS ---
[place] [facility]---------+ [facility] +---------+ : : [address] : : : : [id number] : : : : Phone: [phone] +---------+ Echocardiogram Report + + :Name: MADHU DIMAS Study Date: 03/08/2019 Height: 71 in : :[facility] Weight: 203 lb: : Gender: Male BSA: 2.1 m2 : :: 1960 Age: 58 yrs BP: 92/65 mmHg: :Reason For Study: AFIB : : Performed By: Jatinder Chung : :Referring: BHAVANA GRIFFIN : + + Interpretation Summary 1) Normal left ventricular thickness, size, wall motion, and systolic function (EF 60-65%). 2) Mildly increased right ventricular size with normal function. 3) Both atria are severely dilated (left more than right). 4) There is moderate tricuspid regurgitation. 5) The right ventricular systolic pressure is estimated to be at least 50 mmHg based on an estimated right atrial pressure of 15 mm Hg. 6) The ascending aorta is mildly enlarged at 4.1cm. 7) BP 92/65mmHg. 8) No prior Echo available for comparison. Procedure: A two-dimensional transthoracic echocardiogram with color flow and Doppler was performed. The study quality was technically good. Comparison is made with the echocardiogram of 09/05/08. The patient was in atrial fibrillation with controlled ventricular rate during the exam. The patient had a heart rate of 79-104 beats per minute. Left Ventricle: There is normal left ventricular wall thickness. The left ventricle is normal in size. The ejection fraction is estimated to be 60-65%. Left ventricular systolic function is normal. There are no focal wall motion abnormalities. Right Ventricle: The right ventricle is mildly dilated. The right ventricular systolic function is normal. Atria: Both atria are severely dilated. The interatrial septum is intact with no evidence for an atrial septal defect. Mitral Valve: The mitral valve is normal in structure and function. There is trace mitral regurgitation. Aortic Valve: The aortic valve is trileaflet. The aortic valve opens well. There is trace aortic regurgitation. Tricuspid Valve: The tricuspid valve is normal in structure and function. There is moderate tricuspid regurgitation. The right ventricular systolic pressure is estimated to be at least 50 mmHg based on an estimated right atrial pressure of 15 mm Hg. Pulmonic Valve: The pulmonic valve is normal in structure and function. There is trace pulmonic regurgitation. Great Vessels: The aortic root is normal size. The ascending aorta is mildly enlarged. The pulmonary artery is normal size. The IVC is dilated (diameter is greater than 2.1 cm) and it collapses less than 50% with a sniff. This suggests a high right atrial pressure of 15 mm Hg. Pericardium/ Pleura There is no pericardial effusion. There is no pleural effusion. MMode/2D Measurements & Calculations LVIDd: 5.6 cm LVOT diam: 2.4 cm LVIDs: 3.4 cm Ao root diam: 3.4 cm FS: 38.3 % Aortic Jxn: 2.9 cm EPSS: 0.31 cm asc Aorta Diam: 4.1 cm IVSd: 0.93 cm Ao Arch Diam (Prox Trans): 3.0 cm LVPWd: 0.75 cm LV montgomery. diameter/BSA (cm/m^2): 2.6 LV sys. diameter/BSA (cm/m^2): 1.6 LA dimension: 5.8 cm RA long axis: 6.2 cm LA A2 area: 45.6 cm2 RA area: 29.9 cm2 LA A4 area: 38.9 cm2 RA vol: 123.0 ml LA length (vol): 8.4 cm RA : 58.0 ml/m2 LA vol: 179.6 ml IVC diam: 2.5 cm LA vol index: 84.6 ml/m2 RVD1 (basal): 4.8 cm RVD2 (mid): 4.0 cm Doppler Measurements & Calculations Ao V2 max: 136.5 cm/sec LVOT Max Tim: 100.7 cm/sec Ao V2 mean: 92.5 cm/sec LV V1 max P.1 mmHg Ao max P.5 mmHg LV V1 VTI: 20.7 cm Ao mean P.8 mmHg SAMM(I,D): 3.7 cm2 Ao V2 VTI: 24.6 cm SAMM(V,D): 3.3 cm2 sev ratio: 0.84 SAMM indexed to BSA (cm^2/m^2): 1.8 MV E max tim: 105.1 cm/sec TR max tim: 298.2 cm/sec MV A max tim: 1.2 cm/sec TR max P.6 mmHg MV E/A: 85.9 PA V2 max: 79.8 cm/sec Med Peak E' Tim: 7.0 cm/sec PA V2 mean: 55.9 cm/sec E/E' med: 15.0 PA mean P.4 mmHg Lat Peak E' Tim: 11.6 cm/sec PA pr(Accel): 54.0 mmHg E/E' lat: 9.1 PA Accel Time: 0.07 sec E/e' average: 12.0 MV dec time: 0.15 sec SV(LVOT): 91.7 ml Reading Physician:03:03 PM
== END ==
PROVIDERS: Family Provider Internal Medicine; PCP Internal Medicine; Visit Provider Internal Medicine Cardiovascular Disease
DX: I48.91 Unspecified atrial fibrillation (principal)
CPT/HCPCS: 93306

== ENCOUNTER → 2019-03-13 08:23 | Outpatient (CLI) | payer OTHER, MEDICAID, SELFPAY ==
[2018-10-28 00:59] VITALS: BMI 31.4
[2019-03-13 08:42] LABS: Add Manual Diff / Slide Review NO; Basophils Absolute Auto 0 /uL (0-100); Basophils Percent Auto 0.4 % (0-2); Eosinophils Absolute Auto 0 /uL (0-450); Eosinophils Percent Auto 0.2 % (2-4); Hematocrit 32.9 % (41-53); Hemoglobin 10.5 g/dL (13.5-17.5); Lymphocytes Absolute Auto 1800 /uL (1100-4500); Lymphocytes Percent Auto 25.4 % (25-40); Mean Corpuscular HGB Conc 31.8 % (30-36); Mean Corpuscular Hemoglobin 24.8 PG (26-34); Mean Corpuscular Volume 77.9 fL (80-100); Monocytes Absolute Auto 700 /uL (0-900); Monocytes Percent Auto 9.8 % (3-14); Neutrophils Absolute Auto 4400 /uL (1500-7000); Neutrophils Percent Auto 64.2 % (50-75); Platelet Count 238 X10^3/uL (150-400); Red Blood Cell Count 4.23 X10^6/uL (4.5-5.9); Red Cell Distribution Width 20.1 % (11.6-14.8); White Blood Cell Count 6.9 X10^3/uL (4.5-11.0)
[2019-03-13 08:59] LABS: Alanine Aminotransferase 27 IU/L (21-72); Albumin Globulin Ratio 1.3 (1.0-2.8); Alkaline Phosphatase 164 U/L (38-126); Aspartate Aminotransferase 25 IU/L (17-59); Bilirubin Total 0.4 mg/dL (0.2-1.3); Blood Urea Nitrogen 9 mg/dL (9-20); Calcium 7.8 mg/dL (8.4-10.2); Carbon Dioxide 28 mmol/L (22-32); Chloride 100 mmol/L (98-107); Estimated Glomerular Filt Rate > 60.0 mL/min (>60); Globulin 2.4 g/dL (1.7-4.1); Glucose 84 mg/dL (70-100); HEMOLYSIS < 15 (0-50); Potassium 4.2 mmol/L (3.4-5.1); Sodium 135 mmol/L (137-145); Total Protein 5.4 g/dL (6.3-8.2)
[2019-03-13 09:37] LABS: Anisocytosis 2+; Poikilocytosis 1+
[2019-03-13 09:39] LABS: Hypochromasia 1+
== END ==
PROVIDERS: Family Provider Internal Medicine; PCP Internal Medicine; Visit Provider Internal Medicine Medical Oncology
DX: C61 Malignant neoplasm of prostate (principal)
CPT/HCPCS: 36415; 80053; 84153; 85025

== ENCOUNTER → 2019-03-23 08:52 | Outpatient (CLI) | payer OTHER, MEDICAID, SELFPAY ==
[2018-10-28 00:59] VITALS: BMI 31.4
[2019-03-23 09:28] LABS: Add Manual Diff / Slide Review YES; Hematocrit 32.9 % (41-53); Hemoglobin 10.5 g/dL (13.5-17.5); Mean Corpuscular HGB Conc 31.9 % (30-36); Mean Corpuscular Hemoglobin 24.6 PG (26-34); Platelet Count 222 X10^3/uL (150-400); Red Blood Cell Count 4.28 X10^6/uL (4.5-5.9); Red Cell Distribution Width 20.1 % (11.6-14.8); White Blood Cell Count 15.2 X10^3/uL (4.5-11.0)
[2019-03-23 09:29] LABS: Alanine Aminotransferase 38 IU/L (21-72); Albumin 3.3 g/dL (3.5-5.0); Albumin Globulin Ratio 1.4 (1.0-2.8); Alkaline Phosphatase 144 U/L (38-126); Aspartate Aminotransferase 29 IU/L (17-59); Bilirubin Total 0.4 mg/dL (0.2-1.3); Blood Urea Nitrogen 12 mg/dL (9-20); Carbon Dioxide 25 mmol/L (22-32); Chloride 102 mmol/L (98-107); Estimated Glomerular Filt Rate > 60.0 mL/min (>60); Globulin 2.3 g/dL (1.7-4.1); Glucose 103 mg/dL (70-100); HEMOLYSIS < 15 (0-50); Potassium 3.8 mmol/L (3.4-5.1); Sodium 137 mmol/L (137-145); Total Protein 5.6 g/dL (6.3-8.2)
[2019-03-23 09:39] LABS: Anisocytosis 2+; Neutrophils Absolute Manual 10032 /uL (3000-5900); Nucleated Red Blood Cells 1 #/Diff; Poikilocytosis 1+; Polychromasia 1+; Total Cells Counted 100
[2019-03-23 10:05] LABS: Prostate Specific Antigen 49.6 ng/mL (0.10-4.00)
== END ==
PROVIDERS: Family Provider Internal Medicine; PCP Internal Medicine; Visit Provider Internal Medicine Medical Oncology
DX: C61 Malignant neoplasm of prostate (principal)
CPT/HCPCS: 36415; 80053; 84153; 85025

== ENCOUNTER → 2019-03-29 09:12 | Outpatient (CLI) | payer OTHER, MEDICAID, SELFPAY ==
[2018-10-28 00:59] VITALS: BMI 31.4
[2019-03-29 11:26] LABS: Digoxin 0.4 ng/mL (0.8-2.0)
== END ==
PROVIDERS: PCP Internal Medicine; Visit Provider Internal Medicine
DX: I48.91 Unspecified atrial fibrillation (principal)
CPT/HCPCS: 36415; 80162

== ENCOUNTER 2019-04-29 17:04 | Inpatient (IN) | payer OTHER, MEDICAID, SELFPAY ==
[2018-10-28 00:59] VITALS: BMI 31.4
[2019-04-29] VITALS (9 sets, daily range): BP systolic 99–133; BP diastolic 65–85; PULSE 85–100; RESP 18–24; TEMP 35.9–36.9; O2SAT 98–100; BMI 36.9; BMI 35.5
--- NOTE | 2019-04-29 | DI.ECHO.S_ITS ---
[place] +---------+ Hospital +---------+ : : [address] : : : : [id number] : : : : Phone: [phone] +---------+ Echocardiogram Report + + :Name: MADHU DIMAS Study Date: 04/30/2019 Height: 71 in : :[facility] Weight: 265 lb : : Gender: Male BSA: 2.4 m2 : :: 1960 Age: 58 yrs BP: 108/67 mmHg: :Reason For Study: CHF EXACERBATION : :Ordering Physician: Parish : :Hospitalist Performed By: Amna Ballesteros : :Referring: VALERIA ZIMMER : + + Interpretation Summary Limited for ef, rvsp, and diastology. The left ventricle is normal in size. The ejection fraction is estimated to be 60-65%. Diastolic function could not be accurately assessed due to atrial fibrillation. The right ventricle is mildly dilated. The right ventricular systolic function is normal. There is moderate tricuspid regurgitation. Compared to the prior echo exam, there has been no change in TR severity. The right ventricular systolic pressure is estimated to be at least 40 mmHg based on an estimated right atrial pressure of 15 mm Hg. Compared to the prior echo exam, there has been a decrease in the severity of pulmonary hypertension. Procedure: A two-dimensional transthoracic echocardiogram with color flow and Doppler was performed in limited views only. The study quality was technically adequate. Comparison is made with the echocardiogram of 03/08/19. The patient was in atrial fibrillation with heart rates between 65 an 92 bpm during the exam. Left Ventricle: The left ventricle is normal in size. Proximal septal thickening is noted. The left ventricular ejection fraction is normal. The ejection fraction is estimated to be 60-65%. There are no focal wall motion abnormalities. Diastolic function could not be accurately assessed due to atrial fibrillation. Right Ventricle: The right ventricle is mildly dilated. The right ventricular systolic function is normal. Atria: Both atria are severely dilated. Mitral Valve: The mitral valve is normal. There is trace mitral regurgitation. Aortic Valve: The aortic valve is trileaflet. The aortic valve opens well. Tricuspid Valve: The tricuspid annulus is dilated. There is moderate tricuspid regurgitation. The right ventricular systolic pressure is estimated to be at least 40 mmHg based on an estimated right atrial pressure of 15 mm Hg. Compared to the prior echo exam, there has been no change in TR severity. Compared to the prior echo exam, there has been a decrease in the severity of pulmonary hypertension. Great Vessels: The IVC is dilated (diameter is greater than 2.1 cm) and it collapses less than 50% with a sniff. This suggests a high right atrial pressure of 15 mm Hg. Pericardium/ Pleura There is no pericardial effusion. There is no pleural effusion. MMode/2D Measurements & Calculations LVIDd: 4.9 cm IVC diam: 3.1 cm LVIDs: 3.3 cm FS: 32.0 % IVSd: 1.2 cm LVPWd: 1.1 cm LV montgomery. diameter/BSA (cm/m^2): 2.1 LV sys. diameter/BSA (cm/m^2): 1.4 Doppler Measurements & Calculations TR max lyric: 250.3 cm/sec TR max P.1 mmHg Reading Physician:05:00 PM
--- NOTE | 2019-04-29 17:21 | ED_ITS ---
HPI - General Adult <Andria KnutsonNANNETTEP-BC - Last Filed: 04/29/19 20:03> General Chief complaint: Extremity Problem,Nontraumatic Stated complaint: swelling in legs and groin Time Seen by Provider: 04/29/19 17:06 Source: patient and family Mode of arrival: Wheelchair Limitations: no limitations History of Present Illness HPI narrative: The patient is a 58-year-old male former smoker with history of AFib, prostate cancer with metastasis, heart failure, anemia who presents with a chief complaint of lower extremity swelling and swelling of his groin. He states that his lower leg swelling has been worse, but it came up to his groin this afternoon. States family has been encouraging him to come in all day, and he would not have come in if it were not for them. He denies any fevers nausea vomiting diarrhea better abnormal for him. Denies any chest pain or shortness of breath. He states he goes to [facility] for Hematology- Oncology gets his radiation at [facility] in [place]. He denies any shortness of breath, any cough fever or congestion. He complains of significant weight gain since he was at [facility]. Patient's states that he appears normal for him, does not appear pale. The patient states that he takes Eliquis due to a DVT and PE. According to initial weight versus previous weight, the patient has gained 30 lb in 1 week. States his abdomen is distended. Related Data Home Medications Medication Instructions Recorded Confirmed allopurinol 300 mg tablet 300 mg PO DAILY 04/28/18 04/29/19 digoxin 250 mcg tablet 0.25 mg PO DAILY 04/28/18 04/29/19 Respironics Dreamstation BIPAP #1 ea 10/27/18 04/29/19 calcium carbonate [Calcium 500] 500 mg DAILY 10/28/18 04/29/19 dexamethasone 4 mg PO Q12H 10/28/18 04/29/19 ferrous gluconate 324 mg PO DAILY 10/28/18 04/29/19 furosemide 40 mg PO DAILY 10/28/18 04/29/19 metformin 500 mg PO BID 10/28/18 04/29/19 ondansetron HCl 8 mg PO BID PRN 10/28/18 04/29/19 prochlorperazine maleate 10 mg PO Q6-8H 10/28/18 04/29/19 gabapentin 600 mg tablet 600 mg PO TID tab 04/27/19 04/29/19 morphine 15 mg capsule 15 mg PO .Q 4 H PRN cap 04/27/19 04/29/19 morphine 60 mg capsule,extended 60 mg PO TID cap 04/27/19 04/29/19 release 24 hr multiphase acetaminophen 650 mg PO Q6H PRN 04/29/19 04/29/19 apixaban [Eliquis] 5 mg PO BID 04/29/19 04/29/19 loratadine [Claritin] 10 mg PO DAILY 04/29/19 04/29/19 potassium chloride 20 meq PO TID 04/29/19 04/29/19 Allergies Allergy/AdvReac Type Severity Reaction Status Date / Time No Known Drug Allergies Allergy Verified 04/29/19 17:58 Review of Systems <PIERO Reyes - Last Filed: 04/29/19 20:03> Review of Systems Narrative: GENERAL: Denies chills, fatigue, malaise, fever, sweats. HEENT: Denies sinus pain, ear pain, sore throat, difficulty swallowing, dizziness. RESPIRATORY: Denies dyspnea, cough, wheezing, hemoptysis, sputum. CARDIOVASCULAR: See HPI GASTROINTESTINAL: Denies nausea, vomiting, abdominal pain, diarrhea, constipation, melena. : See HPI MUSCULOSKELETAL: See HPI SKIN: Denies rash, skin lesions, or other NEUROLOGIC: Denies weakness, headache, numbness, change in speech, confusion, seizures, incoordination. PSYCHIATRIC: No concerning psychosocial issues. 12 point review of systems is negative except for those stated above Patient History <SUSAN Reyes - Last Filed: 04/29/19 20:03> Medical/Surgical History Medical History Atrial fibrillation with controlled ventricular rate (Chronic) Chronic back pain (Chronic) Diabetes type 2, controlled (Chronic) Fatigue (Chronic) Gout (Chronic) Obstructive sleep apnea of adult (Chronic) Primary insomnia (Chronic) Prostate cancer (Chronic) Pulmonary embolism (Resolved) Surgical History H/O hernia repair (Chronic) History of prostatectomy (Acute) Status post vasectomy (Chronic) Social History details: single, lives with ex- in [place] household members: significant other and children lives independently: No caregiver/support person: Yes pets and animals: Yes (3 cats, couple jaquan) occupational status: unemployed Smoking Status: Former smoker alcohol intake: current Family/Social History Family History (Updated 04/29/19 @ 22:13 by CARLA Rose) Father Cancer Mother Cancer Brother No problems noted. Brother No problems noted. Sister No problems noted. Social History details: single, lives with ex- in [place] household members: significant other and children lives independently: No caregiver/support person: Yes pets and animals: Yes (3 cats, couple jaquan) occupational status: unemployed Smoking Status: Former smoker alcohol intake: current alcohol intake frequency: holidays/special occasions only Substance Use Type: does not use Exam <SUSAN Reyes - Last Filed: 04/29/19 20:03> Narrative Exam Narrative: GENERAL: Obese male, appears uncomfortable, appears slightly pale. HEAD: Atraumatic. Normocephalic. No temporal or scalp tenderness. EYES: Pupils equal round and reactive. Extraocular motions intact. No scleral icterus. No injection or drainage. ENT: Nose without bleeding, purulent drainage or septal hematoma. Throat without erythema, tonsillar hypertrophy or exudate. Uvula midline. Airway patent. Pale conjunctiva noted. NECK: Trachea midline. No JVD or lymphadenopathy. Supple, nontender, no mening eal signs. CARDIOVASCULAR: Regular rate and irregular rhythm RESPIRATORY: Decreased bilaterally to auscultation. Breath sounds equal bilaterally. No wheezes, rales, or rhonchi. No cough. Slight increased respiratory effort. Unable to speak full sentences. 3-4 word dyspnea. GASTROINTESTINAL: Abdomen tender to palpation, distended. Active bowel sounds.. No palpable masses. No guarding. EXTREMITIES: +3-4 edema bilateral lower extremities, up to thigh. 2+ edema bilateral upper extremities. Positive pedal pulses. BACK: Nontender without deformity or crepitance. No flank tenderness. NEURO: AOx3. SKIN: No rash or erythema on visible skin. Pale conjunctiva. : Scrotum noted to be edematous size of small cantaloupe. Tri RN at bedside during exam. Initial Vital Signs Initial Vital Signs: Vital Signs Temperature 97.2 F L 04/29/19 17:25 Pulse Rate 97 H 04/29/19 17:25 Respiratory Rate 04/29/19 17:25 Blood Pressure 133/85 04/29/19 17:25 Pulse Oximetry 100 04/29/19 17:25 <Sofya Mayo DO - Last Filed: 04/30/19 01:41> Initial Vital Signs Initial Vital Signs: Vital Signs Temperature 97.2 F L 04/29/19 17:25 Pulse Rate 97 H 04/29/19 17:25 Respiratory Rate 04/29/19 17:25 Blood Pressure 133/85 04/29/19 17:25 Pulse Oximetry 100 04/29/19 17:25 Course <WENDY Reyes-MAICOL - Last Filed: 04/29/19 20:03> Orders Ordered: ED Orders 04/29/19 17:18 Consult to Respiratory Therapy Evaluate & Treat EKG-12 Lead Stat 04/29/19 17:21 Digoxin Stat 04/29/19 17:25 Ammonia (NH3) Stat B Type Natriuretic Peptide Stat Complete Blood Count AUTO DIFF Stat Comprehensive Metabolic Panel Stat Lactate (Lactic Acid) Stat Magnesium Stat Partial Thromboplastin Time Stat Procalcitonin Stat Prothrombin Time INR Stat Troponin & CK Cardiac Panel Stat 04/29/19 17:30 XR chest 1V Stat 04/29/19 17:59 Urinalysis and Microscopic Stat 04/29/19 18:26 CT chest abd pel w con Stat Acetaminophen (Tylenol) 1,000 mg PO Q8H [facility] Last Admin: 04/29/19 22:19 Dose: 975 mg Documented by: CATHY Al Hydrox/Mg Hydrox/Simethicone (Maalox Plus) 30 ml PO Q6HR PRN PRN Reason: Dyspepsia Allopurinol (Zyloprim) 300 mg PO DAILY [facility] Apixaban (Eliquis) 5 mg PO BID [facility] Last Admin: 04/29/19 22:17 Dose: 5 mg Documented by: CATHY Calcium Carbonate (Tums) 500 mg PO DAILY [facility] Stop: 05/02/19 08:59 Dexamethasone (Decadron) 4 mg PO Q12H [facility] Last Admin: 04/29/19 22:18 Dose: 4 mg Documented by: CATHY Dextrose (D50w) 25 gm IV PRN PRN; Protocol PRN Reason: Hypoglycemia Digoxin (Lanoxin) 0.25 mg PO DAILY [facility] Ferrous Gluconate (Fergon) 324 mg PO DAILY [facility] Furosemide (Lasix) 40 mg IV Q12HR [facility] Last Admin: 04/30/19 00:03 Dose: 40 mg Documented by: ADAM Gabapentin (Neurontin) 600 mg PO TID [facility] Insulin Aspart (Novolog Flexpen) 0 unit SUBCUT ACHS [facility]; Protocol Morphine Sulfate (Ms Contin) 60 mg PO TID [facility] Last Admin: 04/29/19 22:18 Dose: 60 mg Documented by: CATHY Naloxone HCl (Narcan) 0.2 mg IV Q2MIN PRN PRN Reason: Opiate Reversal Ondansetron HCl (Zofran) 8 mg IV Q8HR PRN PRN Reason: Nausea And Vomiting Potassium Chloride (Potassium Chloride) 20 meq PO BIDWM [facility] Discontinued Medications Calcium Carbonate (Tums) 1,000 mg PO BID [facility] Stop: 05/01/19 21:14 Last Admin: 04/29/19 22:17 Dose: 1,000 mg Documented by: CATHY Calcium Carbonate (Tums) 500 mg PO BID [facility] Stop: 05/02/19 08:59 Digoxin (Lanoxin) 0.125 mg PO NOW ONE Stop: 04/29/19 21:18 Last Admin: 04/29/19 22:18 Dose: 0.125 mg Documented by: CATHY Furosemide (Lasix) 60 mg IV NOW ONE Stop: 04/29/19 18:19 Last Admin: 04/29/19 18:29 Dose: 60 mg Documented by: CARLOS Metformin HCl (Glucophage) 500 mg PO BIDWM [facility] Reevaluation(s) Reevaluation #1: Castle catheter was inserted due to difficulty urinating, scrotal swelling, incontinence and urinary retention. Patient incontinence on arrival to emergency department. Immediate urine output of approximately 600 cc. Time: 18:03 Reevaluation #2: Discussed at length with the patient the results of his CT scan. The patient has had over 2 L urine output since his IV Lasix. Patient is willing to stay in hospital for diuresis and further evaluation. Time: 19:32 Consultations Consultation #1: I spoke with Dr. Granda from Radiology Time: 19:48 Vital Signs Vital signs: Vital Signs - 8 hr 04/29/19 18:00 04/29/19 18:33 04/29/19 19:34 Pulse Rate 92 H 92 H 88 Respiratory Rate 22 18 18 Blood Pressure [Right Arm] 114/70 105/65 Pulse Oximetry 98 98 <Sofya Mayo, DO - Last Filed: 04/30/19 01:41> Orders Ordered: ED Orders 04/29/19 17:18 Consult to Respiratory Therapy Evaluate & Treat EKG-12 Lead Stat 04/29/19 17:21 Digoxin Stat 04/29/19 17:25 Ammonia (NH3) Stat B Type Natriuretic Peptide Stat Complete Blood Count AUTO DIFF Stat Comprehensive Metabolic Panel Stat Lactate (Lactic Acid) Stat Magnesium Stat Partial Thromboplastin Time Stat Procalcitonin Stat Prothrombin Time INR Stat Troponin & CK Cardiac Panel Stat 04/29/19 17:30 XR chest 1V Stat 04/29/19 17:59 Urinalysis and Microscopic Stat 04/29/19 18:26 CT chest abd pel w con Stat Acetaminophen (Tylenol) 1,000 mg PO Q8H [facility] Last Admin: 04/29/19 22:19 Dose: 975 mg Documented by: CATHY Al Hydrox/Mg Hydrox/Simethicone (Maalox Plus) 30 ml PO Q6HR PRN PRN Reason: Dyspepsia Allopurinol (Zyloprim) 300 mg PO DAILY [facility] Apixaban (Eliquis) 5 mg PO BID [facility] Last Admin: 04/29/19 22:17 Dose: 5 mg Documented by: CATHY Calcium Carbonate (Tums) 500 mg PO DAILY [facility] Stop: 05/02/19 08:59 Dexamethasone (Decadron) 4 mg PO Q12H [facility] Last Admin: 04/29/19 22:18 Dose: 4 mg Documented by: CATHY Dextrose (D50w) 25 gm IV PRN PRN; Protocol PRN Reason: Hypoglycemia Digoxin (Lanoxin) 0.25 mg PO DAILY [facility] Ferrous Gluconate (Fergon) 324 mg PO DAILY [facility] Furosemide (Lasix) 40 mg IV Q12HR [facility] Last Admin: 04/30/19 00:03 Dose: 40 mg Documented by: ADAM Gabapentin (Neurontin) 600 mg PO TID [facility] Insulin Aspart (Novolog Flexpen) 0 unit SUBCUT ACHS [facility]; Protocol Morphine Sulfate (Ms Contin) 60 mg PO TID [facility] Last Admin: 04/29/19 22:18 Dose: 60 mg Documented by: CATHY Naloxone HCl (Narcan) 0.2 mg IV Q2MIN PRN PRN Reason: Opiate Reversal Ondansetron HCl (Zofran) 8 mg IV Q8HR PRN PRN Reason: Nausea And Vomiting Potassium Chloride (Potassium Chloride) 20 meq PO BIDWM [facility] Discontinued Medications Calcium Carbonate (Tums) 1,000 mg PO BID [facility] Stop: 05/01/19 21:14 Last Admin: 04/29/19 22:17 Dose: 1,000 mg Documented by: CATHY Calcium Carbonate (Tums) 500 mg PO BID [facility] Stop: 05/02/19 08:59 Digoxin (Lanoxin) 0.125 mg PO NOW ONE Stop: 04/29/19 21:18 Last Admin: 04/29/19 22:18 Dose: 0.125 mg Documented by: CATHY Furosemide (Lasix) 60 mg IV NOW ONE Stop: 04/29/19 18:19 Last Admin: 04/29/19 18:29 Dose: 60 mg Documented by: CARLOS Metformin HCl (Glucophage) 500 mg PO BIDWM [facility] Vital Signs Vital signs: Vital Signs - 8 hr 04/29/19 18:00 04/29/19 18:33 04/29/19 19:34 Pulse Rate 92 H 92 H 88 Respiratory Rate 22 18 18 Blood Pressure [Right Arm] 114/70 105/65 Pulse Oximetry 98 98 Medical Decision Making <WENDY Reyes-MAICOL - Last Filed: 04/29/19 20:03> Lab Data Result diagrams: 04/29/19 17:25 04/29/19 17:25 Labs: Lab Results 04/29/19 04/29/19 04/29/19 Range/Units 17:21 17:25 17:25 WBC 8.8 (4.5-11.0) X10^3/uL RBC 4.38 L (4.5-5.9) X10^6/uL Hgb 10.3 L (13.5-17.5) g/dL Hct 32.9 L (41-53) % MCV 75.3 L (80-100) fL MCH 23.6 L (26-34) PG MCHC 31.3 (30-36) % RDW 18.9 H (11.6-14.8) % Plt Count 222 (150-400) X10^3/uL Neut % (Auto) 89.0 H (50-75) % Lymph % (Auto) 2.7 L (25-40) % [place] % (Auto) 7.3 (3-14) % Eos % (Auto) 0.1 L (2-4) % Baso % (Auto) 0.9 (0-2) % Neut # (Auto) 7800 H (7501-3250) /uL Lymph # (Auto) 200 L (1232-7711) /uL [place] # (Auto) 600 (0-900) /uL Eos # (Auto) 0 (0-450) /uL Baso # (Auto) 100 (0-100) /uL PT (10.1-12.7) SECONDS INR (0.9-1.3) APTT (26.4-36.2) SECONDS Sodium (137-145) mmol/L Potassium (3.4-5.1) mmol/L Chloride (98-107) mmol/L Carbon Dioxide (22-32) mmol/L BUN (9-20) mg/dL Creatinine (0.66-1.25) mg/dL Estimated GFR (>60) mL/min BUN/Creatinine Ratio (6-22) Glucose (70-100) mg/dL Lactate (0.7-2.1) mmol/L Calcium (8.4-10.2) mg/dL Magnesium (1.6-2.3) mg/dL Total Bilirubin (0.2-1.3) mg/dL AST (17-59) IU/L ALT (21-72) IU/L Alkaline Phosphatase (38-126) U/L Ammonia < 9.0 L (9-30) umol/L Total Creatine Kinase (55-170) U/L CK-MB (CK-2) (<2.37) ng/mL CK-MB (CK-2) Rel Index (1.5-5.0) % Troponin I (0.01-0.034) ng/mL B-Natriuretic Peptide 172 H (<100) Total Protein (6.3-8.2) g/dL Albumin (3.5-5.0) g/dL Globulin (1.7-4.1) g/dL Albumin/Globulin Ratio (1.0-2.8) Procalcitonin (<0.5) ng/mL Urine Color Urine Appearance Urine pH (4.5-8.0) Ur Specific [place] (1.000-1.035) Urine Protein (Negative) Urine Glucose (UA) (Negative) g/dL Urine Ketones (NEGATIVE) Urine Occult Blood (Negative) Urine Nitrate (Negative) Urine Bilirubin (NEGATIVE) Urine Urobilinogen (0.2) E.U./dL Ur Leukocyte Esterase (NEGATIVE) Urine RBC (0-5/HPF) Urine WBC (0-5/HPF) Amorphous Sediment Urine Bacteria (None) Ur Culture Indicated? Digoxin 0.6 L (0.8-2.0) ng/mL 04/29/19 04/29/19 04/29/19 Range/Units 17:25 17:25 17:25 WBC (4.5-11.0) X10^3/uL RBC (4.5-5.9) X10^6/uL Hgb (13.5-17.5) g/dL Hct (41-53) % MCV (80-100) fL MCH (26-34) PG MCHC (30-36) % RDW (11.6-14.8) % Plt Count (150-400) X10^3/uL Neut % (Auto) (50-75) % Lymph % (Auto) (25-40) % [place] % (Auto) (3-14) % Eos % (Auto) (2-4) % Baso % (Auto) (0-2) % Neut # (Auto) (5943-3725) /uL Lymph # (Auto) (7221-1620) /uL [place] # (Auto) (0-900) /uL Eos # (Auto) (0-450) /uL Baso # (Auto) (0-100) /uL PT (10.1-12.7) SECONDS INR (0.9-1.3) APTT (26.4-36.2) SECONDS Sodium 134 L (137-145) mmol/L Potassium 4.8 (3.4-5.1) mmol/L Chloride 95 L (98-107) mmol/L Carbon Dioxide 26 (22-32) mmol/L BUN 22 H (9-20) mg/dL Creatinine 0.40 L (0.66-1.25) mg/dL Estimated GFR > 60.0 (>60) mL/min BUN/Creatinine Ratio 55.0 H (6-22) Glucose 184 H (70-100) mg/dL Lactate (0.7-2.1) mmol/L Calcium 7.6 L (8.4-10.2) mg/dL Magnesium 2.0 (1.6-2.3) mg/dL Total Bilirubin 0.7 (0.2-1.3) mg/dL AST 39 (17-59) IU/L ALT 33 (21-72) IU/L Alkaline Phosphatase 135 H (38-126) U/L Ammonia (9-30) umol/L Total Creatine Kinase 131 (55-170) U/L CK-MB (CK-2) 2.82 H (<2.37) ng/mL CK-MB (CK-2) Rel Index 2.2 (1.5-5.0) % Troponin I < 0.012 (0.01-0.034) ng/mL B-Natriuretic Peptide (<100) Total Protein 6.1 L (6.3-8.2) g/dL Albumin 3.7 (3.5-5.0) g/dL Globulin 2.4 (1.7-4.1) g/dL Albumin/Globulin Ratio 1.5 (1.0-2.8) Procalcitonin < 0.05 (<0.5) ng/mL Urine Color Urine Appearance Urine pH (4.5-8.0) Ur Specific [place] (1.000-1.035) Urine Protein (Negative) Urine Glucose (UA) (Negative) g/dL Urine Ketones (NEGATIVE) Urine Occult Blood (Negative) Urine Nitrate (Negative) Urine Bilirubin (NEGATIVE) Urine Urobilinogen (0.2) E.U./dL Ur Leukocyte Esterase (NEGATIVE) Urine RBC (0-5/HPF) Urine WBC (0-5/HPF) Amorphous Sediment Urine Bacteria (None) Ur Culture Indicated? Digoxin (0.8-2.0) ng/mL 1004/29/19 04/29/19 Range/Units 17:25 17:25 17:59 WBC (4.5-11.0) X10^3/uL RBC (4.5-5.9) X10^6/uL Hgb (13.5-17.5) g/dL Hct (41-53) % MCV (80-100) fL MCH (26-34) PG MCHC (30-36) % RDW (11.6-14.8) % Plt Count (150-400) X10^3/uL Neut % (Auto) (50-75) % Lymph % (Auto) (25-40) % [place] % (Auto) (3-14) % Eos % (Auto) (2-4) % Baso % (Auto) (0-2) % Neut # (Auto) (7821-9061) /uL Lymph # (Auto) (8408-8440) /uL [place] # (Auto) (0-900) /uL Eos # (Auto) (0-450) /uL Baso # (Auto) (0-100) /uL PT 15.0 H (10.1-12.7) SECONDS INR 1.3 (0.9-1.3) APTT 31 D (26.4-36.2) SECONDS Sodium (137-145) mmol/L Potassium (3.4-5.1) mmol/L Chloride (98-107) mmol/L Carbon Dioxide (22-32) mmol/L BUN (9-20) mg/dL Creatinine (0.66-1.25) mg/dL Estimated GFR (>60) mL/min BUN/Creatinine Ratio (6-22) Glucose (70-100) mg/dL Lactate 2.4 H (0.7-2.1) mmol/L Calcium (8.4-10.2) mg/dL Magnesium (1.6-2.3) mg/dL Total Bilirubin (0.2-1.3) mg/dL AST (17-59) IU/L ALT (21-72) IU/L Alkaline Phosphatase (38-126) U/L Ammonia (9-30) umol/L Total Creatine Kinase (55-170) U/L CK-MB (CK-2) (<2.37) ng/mL CK-MB (CK-2) Rel Index (1.5-5.0) % Troponin I (0.01-0.034) ng/mL B-Natriuretic Peptide (<100) Total Protein (6.3-8.2) g/dL Albumin (3.5-5.0) g/dL Globulin (1.7-4.1) g/dL Albumin/Globulin Ratio (1.0-2.8) Procalcitonin (<0.5) ng/mL Urine Color Yellow Urine Appearance Clear Urine pH 5.0 (4.5-8.0) Ur Specific [place] 1.010 (1.000-1.035) Urine Protein Negative (Negative) Urine Glucose (UA) Negative (Negative) g/dL Urine Ketones Negative (NEGATIVE) Urine Occult Blood Trace-lysed (Negative) Urine Nitrate Negative (Negative) Urine Bilirubin Negative (NEGATIVE) Urine Urobilinogen 0.2 (0.2) E.U./dL Ur Leukocyte Esterase Negative (NEGATIVE) Urine RBC 1-5/hpf (0-5/HPF) Urine WBC None seen (0-5/HPF) Amorphous Sediment 2+ Urine Bacteria None seen (None) Ur Culture Indicated? Cult not indicated Digoxin (0.8-2.0) ng/mL 04/29/19 Range/Units 19:53 WBC (4.5-11.0) X10^3/uL RBC (4.5-5.9) X10^6/uL Hgb (13.5-17.5) g/dL Hct (41-53) % MCV (80-100) fL MCH (26-34) PG MCHC (30-36) % RDW (11.6-14.8) % Plt Count (150-400) X10^3/uL Neut % (Auto) (50-75) % Lymph % (Auto) (25-40) % [place] % (Auto) (3-14) % Eos % (Auto) (2-4) % Baso % (Auto) (0-2) % Neut # (Auto) (8240-9208) /uL Lymph # (Auto) (2029-0040) /uL [place] # (Auto) (0-900) /uL Eos # (Auto) (0-450) /uL Baso # (Auto) (0-100) /uL PT (10.1-12.7) SECONDS INR (0.9-1.3) APTT (26.4-36.2) SECONDS Sodium (137-145) mmol/L Potassium (3.4-5.1) mmol/L Chloride (98-107) mmol/L Carbon Dioxide (22-32) mmol/L BUN (9-20) mg/dL Creatinine (0.66-1.25) mg/dL Estimated GFR (>60) mL/min BUN/Creatinine Ratio (6-22) Glucose (70-100) mg/dL Lactate 2.9 H (0.7-2.1) mmol/L Calcium (8.4-10.2) mg/dL Magnesium (1.6-2.3) mg/dL Total Bilirubin (0.2-1.3) mg/dL AST (17-59) IU/L ALT (21-72) IU/L Alkaline Phosphatase (38-126) U/L Ammonia (9-30) umol/L Total Creatine Kinase (55-170) U/L CK-MB (CK-2) (<2.37) ng/mL CK-MB (CK-2) Rel Index (1.5-5.0) % Troponin I (0.01-0.034) ng/mL B-Natriuretic Peptide (<100) Total Protein (6.3-8.2) g/dL Albumin (3.5-5.0) g/dL Globulin (1.7-4.1) g/dL Albumin/Globulin Ratio (1.0-2.8) Procalcitonin (<0.5) ng/mL Urine Color Urine Appearance Urine pH (4.5-8.0) Ur Specific [place] (1.000-1.035) Urine Protein (Negative) Urine Glucose (UA) (Negative) g/dL Urine Ketones (NEGATIVE) Urine Occult Blood (Negative) Urine Nitrate (Negative) Urine Bilirubin (NEGATIVE) Urine Urobilinogen (0.2) E.U./dL Ur Leukocyte Esterase (NEGATIVE) Urine RBC (0-5/HPF) Urine WBC (0-5/HPF) Amorphous Sediment Urine Bacteria (None) Ur Culture Indicated? Digoxin (0.8-2.0) ng/mL Imaging Data Chest x-ray: Radiologist's impression: [place] [id number] XRay Report Signed Patient: Roel Jansen LMR#: [id number] : 1960Acct:[id number] Age/Sex: 58 / MDate of Service: 04/29/19 Loc: ED Accession Number: [id number] Procedure: XR chest 1V Ordering Provider: Andria Knutson-MAICOL PROCEDURE: XR CHEST 1V INDICATIONS: sob, hx hf TECHNIQUE: One view of the chest was acquired. COMPARISON: [facility], CR, XR CHEST 1V, 10/28/2018, 12:34. [facility], CR, XR CHEST 1V, 10/27/2018, 20:40. [facility], CR, XR CHEST 2V, 01/13/2019, 17:32. FINDINGS: Surgical changes and devices: None. Lungs and pleura: An incomplete inspiratory result is noted, causing a crowded appearance to the lung markings. Interstitial prominence is seen. No pneumothorax or significant pleural effusions are seen. There is chronic elevation the right hemidiaphragm. Mediastinum: Mediastinal contours appear normal. Heart size is normal. Athero sclerotic calcification of the aortic arch is noted. Bones and chest wall: No suspicious bony lesions. Age-appropriate bony degenerative changes are seen. Overlying soft tissues appear unremarkable. IMPRESSION: Interstitial prominence is seen throughout. The interstitial prominence is nonspecific, yet may be related to pulmonary edema. Chronic elevation the right hemidiaphragm. Dictated by: Shorty Araiza M.D. on 04/29/2019 at 16:44 Approved by: Shorty Araiza M.D. on 04/29/2019 at 16:46 ECG Data Attestation: I personally reviewed and interpreted this ECG as follows: Interpretation: Atrial fibrillation. Ventricular rate 89. No ectopy noted. QRS duration 88. Viewed by Dr Smiley MOELLER Narrative Medical decision making narrative: The patient is a 58-year-old male who presents with chief complaint of swelling of his legs and genitals. He has a complicated medical history including prostate cancer, heart failure, AFib, DVT, PE and takes Eliquis. He presents with distinct edema, denies any chest pain. He has a negative troponin, EKG illustrate atrial fibrillation which he is aware of. The troponin was taken to help rule out any acute cardiac event, which is supported by his EKG. A urine catheter was inserted due to urinary retention in a urine sample is taken to rule out any UTI. A BNP was good bleeding given the patient;s history of CHF. It was slightly elevated, but this does not rule out diastolic heart failure. Given the patient's overt fluid retention, I treated him with Lasix and he had 3 L urine output. His electrolytes are otherwise stable on in labs.. Given his abdominal distention and history of cancer, I obtained a chest abdomen pelvis CT a to evaluate for any acute mass or etiology. I discussed the patient for admission with Tera AGUIRRE, who requested that I evaluate the patient for PE. I spoke with Dr. davis from Radiology states she does not see anything in the main at this point time, but that it would be more optimal to do PE study in the morning given the repeat contrast dye. I have low clinical suspicion is the patient is not hypoxic and takes Eliquis. The patient was admitted to observation by Tera AGUIRRE any states understanding of admission and has no questions or concerns. <Sofya Mayo, DO - Last Filed: 04/30/19 01:41> Lab Data Labs: Lab Results 04/29/19 04/29/19 04/29/19 Range/Units 17:21 17:25 17:25 WBC 8.8 (4.5-11.0) X10^3/uL RBC 4.38 L (4.5-5.9) X10^6/uL Hgb 10.3 L (13.5-17.5) g/dL Hct 32.9 L (41-53) % MCV 75.3 L (80-100) fL MCH 23.6 L (26-34) PG MCHC 31.3 (30-36) % RDW 18.9 H (11.6-14.8) % Plt Count 222 (150-400) X10^3/uL Neut % (Auto) 89.0 H (50-75) % Lymph % (Auto) 2.7 L (25-40) % [place] % (Auto) 7.3 (3-14) % Eos % (Auto) 0.1 L (2-4) % Baso % (Auto) 0.9 (0-2) % Neut # (Auto) 7800 H (0443-9213) /uL Lymph # (Auto) 200 L (2075-1782) /uL [place] # (Auto) 600 (0-900) /uL Eos # (Auto) 0 (0-450) /uL Baso # (Auto) 100 (0-100) /uL PT (10.1-12.7) SECONDS INR (0.9-1.3) APTT (26.4-36.2) SECONDS Sodium (137-145) mmol/L Potassium (3.4-5.1) mmol/L Chloride (98-107) mmol/L Carbon Dioxide (22-32) mmol/L BUN (9-20) mg/dL Creatinine (0.66-1.25) mg/dL Estimated GFR (>60) mL/min BUN/Creatinine Ratio (6-22) Glucose (70-100) mg/dL Lactate (0.7-2.1) mmol/L Calcium (8.4-10.2) mg/dL Magnesium (1.6-2.3) mg/dL Total Bilirubin (0.2-1.3) mg/dL AST (17-59) IU/L ALT (21-72) IU/L Alkaline Phosphatase (38-126) U/L Ammonia < 9.0 L (9-30) umol/L Total Creatine Kinase (55-170) U/L CK-MB (CK-2) (<2.37) ng/mL CK-MB (CK-2) Rel Index (1.5-5.0) % Troponin I (0.01-0.034) ng/mL B-Natriuretic Peptide 172 H (<100) Total Protein (6.3-8.2) g/dL Albumin (3.5-5.0) g/dL Globulin (1.7-4.1) g/dL Albumin/Globulin Ratio (1.0-2.8) Procalcitonin (<0.5) ng/mL Urine Color Urine Appearance Urine pH (4.5-8.0) Ur Specific [place] (1.000-1.035) Urine Protein (Negative) Urine Glucose (UA) (Negative) g/dL Urine Ketones (NEGATIVE) Urine Occult Blood (Negative) Urine Nitrate (Negative) Urine Bilirubin (NEGATIVE) Urine Urobilinogen (0.2) E.U./dL Ur Leukocyte Esterase (NEGATIVE) Urine RBC (0-5/HPF) Urine WBC (0-5/HPF) Amorphous Sediment Urine Bacteria (None) Ur Culture Indicated? Digoxin 0.6 L (0.8-2.0) ng/mL 04/29/19 04/29/19 04/29/19 Range/Units 17:25 17:25 17:25 WBC (4.5-11.0) X10^3/uL RBC (4.5-5.9) X10^6/uL Hgb (13.5-17.5) g/dL Hct (41-53) % MCV (80-100) fL MCH (26-34) PG MCHC (30-36) % RDW (11.6-14.8) % Plt Count (150-400) X10^3/uL Neut % (Auto) (50-75) % Lymph % (Auto) (25-40) % [place] % (Auto) (3-14) % Eos % (Auto) (2-4) % Baso % (Auto) (0-2) % Neut # (Auto) (1234-1121) /uL Lymph # (Auto) (1538-5775) /uL [place] # (Auto) (0-900) /uL Eos # (Auto) (0-450) /uL Baso # (Auto) (0-100) /uL PT (10.1-12.7) SECONDS INR (0.9-1.3) APTT (26.4-36.2) SECONDS Sodium 134 L (137-145) mmol/L Potassium 4.8 (3.4-5.1) mmol/L Chloride 95 L (98-107) mmol/L Carbon Dioxide 26 (22-32) mmol/L BUN 22 H (9-20) mg/dL Creatinine 0.40 L (0.66-1.25) mg/dL Estimated GFR > 60.0 (>60) mL/min BUN/Creatinine Ratio 55.0 H (6-22) Glucose 184 H (70-100) mg/dL Lactate (0.7-2.1) mmol/L Calcium 7.6 L (8.4-10.2) mg/dL Magnesium 2.0 (1.6-2.3) mg/dL Total Bilirubin 0.7 (0.2-1.3) mg/dL AST 39 (17-59) IU/L ALT 33 (21-72) IU/L Alkaline Phosphatase 135 H (38-126) U/L Ammonia (9-30) umol/L Total Creatine Kinase 131 (55-170) U/L CK-MB (CK-2) 2.82 H (<2.37) ng/mL CK-MB (CK-2) Rel Index 2.2 (1.5-5.0) % Troponin I < 0.012 (0.01-0.034) ng/mL B-Natriuretic Peptide (<100) Total Protein 6.1 L (6.3-8.2) g/dL Albumin 3.7 (3.5-5.0) g/dL Globulin 2.4 (1.7-4.1) g/dL Albumin/Globulin Ratio 1.5 (1.0-2.8) Procalcitonin < 0.05 (<0.5) ng/mL Urine Color Urine Appearance Urine pH (4.5-8.0) Ur Specific [place] (1.000-1.035) Urine Protein (Negative) Urine Glucose (UA) (Negative) g/dL Urine Ketones (NEGATIVE) Urine Occult Blood (Negative) Urine Nitrate (Negative) Urine Bilirubin (NEGATIVE) Urine Urobilinogen (0.2) E.U./dL Ur Leukocyte Esterase (NEGATIVE) Urine RBC (0-5/HPF) Urine WBC (0-5/HPF) Amorphous Sediment Urine Bacteria (None) Ur Culture Indicated? Digoxin (0.8-2.0) ng/mL 04/29/19 04/29/19 04/29/19 Range/Units 17:25 17:25 17:59 WBC (4.5-11.0) X10^3/uL RBC (4.5-5.9) X10^6/uL Hgb (13.5-17.5) g/dL Hct (41-53) % MCV (80-100) fL MCH (26-34) PG MCHC (30-36) % RDW (11.6-14.8) % Plt Count (150-400) X10^3/uL Neut % (Auto) (50-75) % Lymph % (Auto) (25-40) % [place] % (Auto) (3-14) % Eos % (Auto) (2-4) % Baso % (Auto) (0-2) % Neut # (Auto) (3410-6920) /uL Lymph # (Auto) (7594-5102) /uL [place] # (Auto) (0-900) /uL Eos # (Auto) (0-450) /uL Baso # (Auto) (0-100) /uL PT 15.0 H (10.1-12.7) SECONDS INR 1.3 (0.9-1.3) APTT 31 D (26.4-36.2) SECONDS Sodium (137-145) mmol/L Potassium (3.4-5.1) mmol/L Chloride (98-107) mmol/L Carbon Dioxide (22-32) mmol/L BUN (9-20) mg/dL Creatinine (0.66-1.25) mg/dL Estimated GFR (>60) mL/min BUN/Creatinine Ratio (6-22) Glucose (70-100) mg/dL Lactate 2.4 H (0.7-2.1) mmol/L Calcium (8.4-10.2) mg/dL Magnesium (1.6-2.3) mg/dL Total Bilirubin (0.2-1.3) mg/dL AST (17-59) IU/L ALT (21-72) IU/L Alkaline Phosphatase (38-126) U/L Ammonia (9-30) umol/L Total Creatine Kinase (55-170) U/L CK-MB (CK-2) (<2.37) ng/mL CK-MB (CK-2) Rel Index (1.5-5.0) % Troponin I (0.01-0.034) ng/mL B-Natriuretic Peptide (<100) Total Protein (6.3-8.2) g/dL Albumin (3.5-5.0) g/dL Globulin (1.7-4.1) g/dL Albumin/Globulin Ratio (1.0-2.8) Procalcitonin (<0.5) ng/mL Urine Color Yellow Urine Appearance Clear Urine pH 5.0 (4.5-8.0) Ur Specific [place] 1.010 (1.000-1.035) Urine Protein Negative (Negative) Urine Glucose (UA) Negative (Negative) g/dL Urine Ketones Negative (NEGATIVE) Urine Occult Blood Trace-lysed (Negative) Urine Nitrate Negative (Negative) Urine Bilirubin Negative (NEGATIVE) Urine Urobilinogen 0.2 (0.2) E.U./dL Ur Leukocyte Esterase Negative (NEGATIVE) Urine RBC 1-5/hpf (0-5/HPF) Urine WBC None seen (0-5/HPF) Amorphous Sediment 2+ Urine Bacteria None seen (None) Ur Culture Indicated? Cult not indicated Digoxin (0.8-2.0) ng/mL 04/29/19 Range/Units 19:53 WBC (4.5-11.0) X10^3/uL RBC (4.5-5.9) X10^6/uL Hgb (13.5-17.5) g/dL Hct (41-53) % MCV (80-100) fL MCH (26-34) PG MCHC (30-36) % RDW (11.6-14.8) % Plt Count (150-400) X10^3/uL Neut % (Auto) (50-75) % Lymph % (Auto) (25-40) % [place] % (Auto) (3-14) % Eos % (Auto) (2-4) % Baso % (Auto) (0-2) % Neut # (Auto) (5960-3788) /uL Lymph # (Auto) (6183-7121) /uL [place] # (Auto) (0-900) /uL Eos # (Auto) (0-450) /uL Baso # (Auto) (0-100) /uL PT (10.1-12.7) SECONDS INR (0.9-1.3) APTT (26.4-36.2) SECONDS Sodium (137-145) mmol/L Potassium (3.4-5.1) mmol/L Chloride (98-107) mmol/L Carbon Dioxide (22-32) mmol/L BUN (9-20) mg/dL Creatinine (0.66-1.25) mg/dL Estimated GFR (>60) mL/min BUN/Creatinine Ratio (6-22) Glucose (70-100) mg/dL Lactate 2.9 H (0.7-2.1) mmol/L Calcium (8.4-10.2) mg/dL Magnesium (1.6-2.3) mg/dL Total Bilirubin (0.2-1.3) mg/dL AST (17-59) IU/L ALT (21-72) IU/L Alkaline Phosphatase (38-126) U/L Ammonia (9-30) umol/L Total Creatine Kinase (55-170) U/L CK-MB (CK-2) (<2.37) ng/mL CK-MB (CK-2) Rel Index (1.5-5.0) % Troponin I (0.01-0.034) ng/mL B-Natriuretic Peptide (<100) Total Protein (6.3-8.2) g/dL Albumin (3.5-5.0) g/dL Globulin (1.7-4.1) g/dL Albumin/Globulin Ratio (1.0-2.8) Procalcitonin (<0.5) ng/mL Urine Color Urine Appearance Urine pH (4.5-8.0) Ur Specific [place] (1.000-1.035) Urine Protein (Negative) Urine Glucose (UA) (Negative) g/dL Urine Ketones (NEGATIVE) Urine Occult Blood (Negative) Urine Nitrate (Negative) Urine Bilirubin (NEGATIVE) Urine Urobilinogen (0.2) E.U./dL Ur Leukocyte Esterase (NEGATIVE) Urine RBC (0-5/HPF) Urine WBC (0-5/HPF) Amorphous Sediment Urine Bacteria (None) Ur Culture Indicated? Digoxin (0.8-2.0) ng/mL Discharge Plan Departure Patient Disposition: Admitted as Observation Clinical Impression: Fluid retention, Atrial fibrillation, Prostate cancer metastatic to bone Discharge Date/Time: 04/29/19 21:09 Referrals: Damien López MD [Primary Care Provider] - Admit Date/Time: 04/29/19 19:59 Admit Provider: Joseph Haley
--- NOTE | 2019-04-29 17:30 | DI.RAD.S_ITS ---
PROCEDURE: XR CHEST 1V INDICATIONS: sob, hx hf TECHNIQUE: One view of the chest was acquired. COMPARISON: [facility], CR, XR CHEST 1V, 10/28/2018, 12:34. [facility], CR, XR CHEST 1V, 10/27/2018, 20:40. [facility], CR, XR CHEST 2V, 01/13/2019, 17:32. FINDINGS: Surgical changes and devices: None. Lungs and pleura: An incomplete inspiratory result is noted, causing a crowded appearance to the lung markings. Interstitial prominence is seen. No pneumothorax or significant pleural effusions are seen. There is chronic elevation the right hemidiaphragm. Mediastinum: Mediastinal contours appear normal. Heart size is normal. Atherosclerotic calcification of the aortic arch is noted. Bones and chest wall: No suspicious bony lesions. Age-appropriate bony degenerative changes are seen. Overlying soft tissues appear unremarkable. IMPRESSION: Interstitial prominence is seen throughout. The interstitial prominence is nonspecific, yet may be related to pulmonary edema. Chronic elevation the right hemidiaphragm. Dictated by: Shorty Araiza M.D. on 04/29/2019 at 16:44 Approved by: Shorty Araiza M.D. on 04/29/2019 at 16:46
[2019-04-29 17:38] LABS: Add Manual Diff / Slide Review NO; Basophils Absolute Auto 100 /uL (0-100); Basophils Percent Auto 0.9 % (0-2); Eosinophils Absolute Auto 0 /uL (0-450); Eosinophils Percent Auto 0.1 % (2-4); Hematocrit 32.9 % (41-53); Hemoglobin 10.3 g/dL (13.5-17.5); Lymphocytes Absolute Auto 200 /uL (1100-4500); Lymphocytes Percent Auto 2.7 % (25-40); Mean Corpuscular HGB Conc 31.3 % (30-36); Mean Corpuscular Hemoglobin 23.6 PG (26-34); Mean Corpuscular Volume 75.3 fL (80-100); Monocytes Absolute Auto 600 /uL (0-900); Monocytes Percent Auto 7.3 % (3-14); Neutrophils Absolute Auto 7800 /uL (1500-7000); Platelet Count 222 X10^3/uL (150-400); Red Blood Cell Count 4.38 X10^6/uL (4.5-5.9); Red Cell Distribution Width 18.9 % (11.6-14.8); White Blood Cell Count 8.8 X10^3/uL (4.5-11.0)
[2019-04-29 17:56] LABS: INR 1.3 (0.9-1.3)
[2019-04-29 17:59] LABS: Lactate (Lactic Acid) 2.4 mmol/L (0.7-2.1); PTT Partial Thromboplastin Tim 31 SECONDS (26.4-36.2)
[2019-04-29 18:00] LABS: Ammonia (NH3) < 9.0 umol/L (9-30); Creatine Kinase 131 U/L (55-170)
[2019-04-29 18:01] LABS: Bacteria Urine None Seen; WBC Urine None Seen (0-5/HPF)
[2019-04-29 18:01] LABS: Alanine Aminotransferase 33 IU/L (21-72); Albumin 3.7 g/dL (3.5-5.0); Albumin Globulin Ratio 1.5 (1.0-2.8); Alkaline Phosphatase 135 U/L (38-126); Aspartate Aminotransferase 39 IU/L (17-59); Bilirubin Total 0.7 mg/dL (0.2-1.3); Blood Urea Nitrogen 22 mg/dL (9-20); Calcium 7.6 mg/dL (8.4-10.2); Carbon Dioxide 26 mmol/L (22-32); Chloride 95 mmol/L (98-107); Estimated Glomerular Filt Rate > 60.0 mL/min (>60); Globulin 2.4 g/dL (1.7-4.1); Glucose 184 mg/dL (70-100); HEMOLYSIS 80 (0-50); Potassium 4.8 mmol/L (3.4-5.1); Sodium 134 mmol/L (137-145); Total Protein 6.1 g/dL (6.3-8.2)
[2019-04-29 18:06] LABS: Appearance Urine UA CLEAR; Bilirubin Urine UA NEGATIVE (NEGATIVE); Color Urine UA YELLOW; Glucose Urine UA NEGATIVE (Negative); Ketones Urine UA NEGATIVE (NEGATIVE); Leukocyte Esterase Urine UA NEGATIVE (NEGATIVE); Nitrite Urine UA NEGATIVE (Negative); Occult Blood Urine UA TRACE-LYSED (Negative); Protein Urine UA NEGATIVE (Negative); Urobilinogen Urine UA 0.2 E.U./dL (0.2)
[2019-04-29 18:11] LABS: Troponin I < 0.012 ng/mL (0.01-0.034)
[2019-04-29 18:13] LABS: Amorphous Sediment Urine 2+; Culture Indicated Urine Cult Not Indicated; RBC Urine 1-5/HPF (0-5/HPF)
[2019-04-29 18:14] LABS: B Type Natriuretic Peptide 172 (<100); CKMB % Relative Index 2.2 % (1.5-5.0); Creatine Kinase MB 2.82 ng/mL (<2.37)
--- NOTE | 2019-04-29 18:26 | DI.CT.S_ITS ---
PROCEDURE: CT CHEST ABD PEL W CON INDICATIONS: distention, pain, hx cancer TECHNIQUE: After the administration of intravenous contrast, 5 mm thick sections acquired from the lung apices to the symphysis. 5 mm coronal and sagittal reformats were performed, with additional 7 mm MIP reformats through the lungs. For radiation dose reduction, the following was used: automated exposure control, adjustment of mA and/or kV according to patient size. COMPARISON: [facility], CT, ABDOMEN/PELVIS WITH CONTRAST, 05/02/2007, 14:44. FINDINGS: Image quality: Excellent. CHEST: Lungs and pleura: Streaky right basilar opacities are present. Mediastinum: Heart size is normal. No pericardial effusion. Anterior mediastinal soft tissue densities are present, the largest measuring 15 mm. In Thoracic aorta and central pulmonary arteries are normal in size. Esophagus is normal in caliber. No hiatal hernia. Chest wall: No axillary or supraclavicular adenopathy by size criteria. Thyroid gland is. ABDOMEN: Solid organs: Liver is enlarged. Gallbladder is unremarkable. Biliary system is non dilated. Pancreas enhances normally. Spleen is normal in size and enhancement. 11 mm left adrenal nodularity. Kidneys demonstrate normal size and enhancement, without hydronephrosis. Nonobstructing bilateral renal calculi are present. Peritoneum and bowel: Bowel loops in demonstrate mildly prominent loops of colon. There are lobulated areas of soft tissue density in the right lower quadrant seen on series 2 image 108. The stomach is markedly distended with debris. No free fluid or air. Nodes and vessels: Bulky aortocaval and periaortic adenopathy is present. The largest confluent area measures 47 mm AP by 56 mm transverse. In addition, there is suspected iliac adenopathy particularly on the right. However, it is partially obscured secondary to overlying bowel loops. There is subcutaneous fat stranding is present diffusely related to fluid retention or electrolyte/albumin balance. Aorta and inferior vena cava are normal in size. Miscellaneous: No ventral hernias. PELVIS: Genitourinary: Bladder demonstrates a diffusely thickened wall with areas of air. A [place] catheter is present. Miscellaneous: Enhancing inguinal lymph nodes are present the largest measuring 25 mm in short axis on the right. Bones: Sclerotic focus is present in the posterior right iliac wing. In addition, mottled appearance of sclerosis is present at L4, L3, L2, rounded sclerosis at T10, punctate sclerosis at T5, T4 as well as patchy sclerosis within the C7-T3 vertebral bodies. IMPRESSION: 1. Streaky right basilar opacities possibly atelectasis. 2. Mediastinal soft tissue densities, the largest 15 mm concerning for metastatic adenopathy. 3. 11 mm nodular left adrenal focus. While this is overall nonspecific, given the presence of adenopathy, metastatic disease cannot be excluded. 4. Prominent aortic caval, retroaortic, inguinal and iliac adenopathy as above. 5. Lobulated there is a soft tissue density in the right lower quadrant. While these could represent bowel loops, they are poorly characterize secondary to lack of oral contrast. Mesenteric mass lesions or adenopathy cannot be excluded. 6. Multiple sclerotic foci within the axial and appendicular skeleton as above suspicious for metastatic disease. 7. Prominent gastric distention as well as dilated loops of colon. Dictated by: Lori Granda M.D. on 04/29/2019 at 19:03 Approved by: Lori Granda M.D. on 04/29/2019 at 19:21
[2019-04-29 18:28] LABS: Digoxin 0.6 ng/mL (0.8-2.0)
[2019-04-29] MEDS: FUROSEMIDE 100 MG/10 ML VIAL 60 MG IV (18:29)
[2019-04-29 18:36] LABS: Procalcitonin < 0.05 ng/mL (<0.5)
[2019-04-29 19:33] LABS: Reflexed Lactate in 2 Hours Y
[2019-04-29 20:13] LABS: Lactate 2HR (Lactic Acid Rflx) 2.9 mmol/L (0.7-2.1)
--- NOTE | 2019-04-29 21:43 | P.HP_ITS ---
History of Present Illness History of Present Illness Date Patient Seen: 04/29/19 Time Patient Seen: 20:00 Chief complaint: swelling in legs and groin Narrative: Mr. Roel Jansen is a 58-year-old male patient with a history significant for for atrial fibrillation with controlled rate, congestive heart failure with preserved ejection fraction, non insulin dependent diabetes type 2, gout, history of DVT with pulmonary embolism and prostate cancer with metastases presents to the ER for worsening peripheral edema. The patient reports that at baseline he is able to walk upstairs in several blocks without dyspnea and over the last 2 weeks has developed progressive weakness, edema and activity intolerance related to worsening shoulder and hip pain. His edema and percussed into the groin and scrotum prompting presentation for care today. He has had an associated 30 lb weight gain in 1 week. The patient has a history of prostate cancer and has completed 9 cycles of chemotherapy in 9 treatments radiation therapy. He has known metastases to the bone. Patient does have a history of cardiac disease but denies complaints of chest pain and reports that he is no longer aware of his irregular heartbeat having atrial fibrillation for 10 years and is anticoagulated on Eliquis. Reports no complaints of abnormal bleeding, blood in the stool or bruising. He reports no recent complaints of illness or flu symptoms, fevers or chills. He denies shortness of breath, cough or wheeze. He denies complaints of abdominal pain though he had a brief episode of nausea earlier today that lasted minutes without vomiting. He reports no complaints of constipation in fact reports bowel movements on the loose side. Patient had a fall this morning sliding office bed onto his knees, no loss consciousness, or change in characteristic chronic back, left shoulder and right hip pain. He states he goes to [facility] gets his ra diation at [facility] in [place]. Upon arrival in the ER the patient is afebrile with temperature 97.2?, heart rate 97 in atrial fibrillation with a blood pressure of 133/85, respirations 19 saturation 100% on room air. A chest x-ray was taken which notes nonspecific interstitial prominence throughout all lung soto consistent with vascular congestion and chronic the elevated right hemidiaphragm. CT of the chest abdomen and pelvis reveals right basilar opacities consistent with atelectasis, mediastinal adenopathy, 11 mm adrenal nodule, prominent aortic caval inguinal and iliac adenopathy, lobulated soft tissue densities in the right lower quadrant which may represent mesenteric mass or adenopathy, multiple sclerotic foci within the axial and appendicular skeleton consistent with metastatic static disease. Twelve lead EKG is obtained which finds atrial fibrillation with controlled ventricular rate 89, no ectopy, inverted T-wave in V2 without ST changes. On laboratory analysis the patient has white count of 8.8, hemoglobin of 10.3 and hematocrit 32.9 and platelets of 222 with neutrophilia at 89%. On coagulations he has a PT of 15, INR of 1.3 and PTT of 31. His electrolytes are within normal range with a BUN of 22 and creatinine is 0.4. His nonfasting glucose is 184. Liver functions include total bilirubin of 0.7, AST of 39, ALT of 33 and alkaline phosphatase elevated at 135. On cardiac panel he has a total CK of 131 CK-MB of 2.82, CK index of 2.2 and troponin that is less than 0.012. His BMP is 172. Digital level is 0.6. His procalcitonin is less than 0.05 and urinalysis reveals sediment with no sign of infection. In the ER the patient is given Lasix 60 mg IV. Patient History Medical History Atrial fibrillation with controlled ventricular rate (Chronic) Chronic back pain (Chronic) Diabetes type 2, controlled (Chronic) Fatigue (Chronic) Gout (Chronic) Obstructive sleep apnea of adult (Chronic) Primary insomnia (Chronic) Prostate cancer (Chronic) Pulmonary embolism (Resolved) Surgical History H/O hernia repair (Chronic) History of prostatectomy (Acute) Status post vasectomy (Chronic) Social History details: single, lives with ex- in [place] household members: significant other and children lives independently: No caregiver/support person: Yes pets and animals: Yes (3 cats, couple chihuahuas) occupational status: unemployed Smoking Status: Former smoker alcohol intake: current Family & Social History Family History (Updated 04/29/19 @ 22:12 by CARLA Rose) Father Cancer Mother Cancer Brother No problems noted. Brother No problems noted. Sister No problems noted. Social History: household members significant other,children Prior Living Arrangements House lives independently No caregiver/support person Yes Safety & Behavioral: Feels Safe in Current Yes Environment Been Physically Hurt or No Threatened By a Person Suicidal Ideation Description None Tobacco & Substance use: Tobacco type cigarettes Smoking Status Former smoker alcohol intake current alcohol intake frequency holiday/special occasion Substance Use Type marijuana Comment: Patient is currently single and lives in a single family home with his ex- and daughter. Occupation: Unemployed Smoking: Patient quit smoking 09/07/2018 before which he smoked 1/2 pack per day for 15 years. Alcohol: Previous weekend alcohol consumption now for the last several months rare alcohol intake. Substance use: Patient is use CBD drops and come he is well going through radiation therapy, dried cannabis cookies with THC. Advanced directives: The patient has no formal advanced directive, noted the need for a formal advanced directive and discussion of care wishes in the setting of his current health condition. He states his wish to be FULL CODE and designates his daughter Janine to be his surrogate decision maker. Meds Home Medications and Allergies Home Medications Medication Instructions Recorded Confirmed Type allopurinol 300 mg tablet 300 mg PO DAILY 04/28/18 04/29/19 History digoxin 250 mcg tablet 0.25 mg PO DAILY 04/28/18 04/29/19 History Respironics Dreamstation BIPAP #1 ea 10/27/18 04/29/19 History calcium carbonate [Calcium 500] 500 mg DAILY 10/28/18 04/29/19 History dexamethasone 4 mg PO Q12H 10/28/18 04/29/19 History ferrous gluconate 324 mg PO DAILY 10/28/18 04/29/19 History furosemide 40 mg PO DAILY 10/28/18 04/29/19 History metformin 500 mg PO BID 10/28/18 04/29/19 History ondansetron HCl 8 mg PO BID PRN 10/28/18 04/29/19 History prochlorperazine maleate 10 mg PO Q6-8H 10/28/18 04/29/19 History gabapentin 600 mg tablet 600 mg PO TID tab 04/27/19 04/29/19 History morphine 15 mg capsule 15 mg PO .Q 4 H PRN cap 04/27/19 04/29/19 History morphine 60 mg capsule,extended 60 mg PO TID cap 04/27/19 04/29/19 History release 24 hr multiphase acetaminophen 650 mg PO Q6H PRN 04/29/19 04/29/19 History apixaban [Eliquis] 5 mg PO BID 04/29/19 04/29/19 History loratadine [Claritin] 10 mg PO DAILY 04/29/19 04/29/19 History potassium chloride 20 meq PO TID 04/29/19 04/29/19 History Allergies Allergy/AdvReac Type Severity Reaction Status Date / Time No Known Drug Allergies Allergy Verified 04/29/19 17:58 Review of Systems Review of Systems ROS Unobtainable: All systems reviewed & are unremarkable except as noted in HPI and below Exam Vital Signs (past 8 hours): - 04/29/19 17:25 04/29/19 17:35 04/29/19 18:00 Temperature 97.2 F L Pulse Rate 97 H 90 92 H Respiratory Rate 19 18 22 Blood Pressure 133/85 Blood Pressure [Right Arm] 119/75 114/70 Pulse Oximetry 100 98 98 04/29/19 18:33 04/29/19 19:34 04/29/19 20:16 Temperature Pulse Rate 92 H 88 100 H Respiratory Rate 18 18 24 Blood Pressure Blood Pressure [Right Arm] 105/65 99/67 Pulse Oximetry 98 98 Oxygen Delivery Method Room Air Narrative Exam Narrative: GENERAL APPEARANCE: well developed, obese male with a BMI of 35.5 who appears older than his stated age in moderate discomfort. HEAD: Normocephalic, atraumatic, no scalp lesions. EYES: pupils equal, round, reactive to light and accommodation, conjunctivae is clear, sclera anicteric, extraocular movement intact without nystagmus. EARS: Impaired hearing, normal external structures, no ear pain NOSE: sinuses non tender to percussion, no rhinorrhea ORAL CAVITY: mucosa moist without lesions or exudate, palate normal, tongue in midline. THROAT: normal, no erythema, no exudate, posterior pharynx normal, uvula midline. NECK/THYROID: neck supple, no jugular venous distention, no carotid bruit, no thyromegaly, trachea midline. LYMPH NODES: no cervical or supraclavicular lymphadenopathy. SKIN: [place], warm and dry, no petechiae, no rashes, good turgor. HEART: regular rate and rhythm, S1-S2 1/6 systolic murmur, no rubs or gallops, brisk capillary refill, 2+ pitting edema to proximal thigh LUNGS: Bilateral upper lobes clear, loss of breath sounds right base, fine bibasilar crackles without coarseness or wheezing, no cough present CHEST: Symmetrical movement, no accessory muscle use, no pain to AP and lateral compression. ABDOMEN: Soft, tympanic to percussion BUQ, no abdominal tenderness on palpation, no organomegaly, active bowel tones, scrotal and penile edema. EXTREMITIES: Abrasions bilateral knees moves all extremities, pain with movement left shoulder right leg, strength is 5/5 and symmetrical, no calf tenderness, negative [place]. NEUROLOGIC: AAO x4, no focal neurologic deficits, cranial nerves II-XII grossly intact , sensation intact to light touch, hearing grossly normal to speech. PSYCH: Alert and responsive, irritable but cooperative, tearful when discussing family history. Objective Labs Result Diagrams: 04/29/19 17:25 04/29/19 17:25 Labs: Laboratory Results - last 24 hr 04/29/19 04/29/19 04/29/19 17:21 17:25 17:25 WBC 8.8 RBC 4.38 L Hgb 10.3 L Hct 32.9 L MCV 75.3 L MCH 23.6 L MCHC 31.3 RDW 18.9 H Plt Count 222 Neut % (Auto) 89.0 H Lymph % (Auto) 2.7 L [place] % (Auto) 7.3 Eos % (Auto) 0.1 L Baso % (Auto) 0.9 Neut # (Auto) 7800 H Lymph # (Auto) 200 L [place] # (Auto) 600 Eos # (Auto) 0 Baso # (Auto) 100 PT INR APTT Sodium Potassium Chloride Carbon Dioxide BUN Creatinine Estimated GFR BUN/Creatinine Ratio Glucose Lactate Calcium Magnesium Total Bilirubin AST ALT Alkaline Phosphatase Ammonia < 9.0 L Total Creatine Kinase CK-MB (CK-2) CK-MB (CK-2) Rel Index Troponin I B-Natriuretic Peptide 172 H Total Protein Albumin Globulin Albumin/Globulin Ratio Procalcitonin Urine Color Urine Appearance Urine pH Ur Specific [place] Urine Protein Urine Glucose (UA) Urine Ketones Urine Occult Blood Urine Nitrate Urine Bilirubin Urine Urobilinogen Ur Leukocyte Esterase Urine RBC Urine WBC Amorphous Sediment Urine Bacteria Ur Culture Indicated? Digoxin 0.6 L 04/29/19 04/29/19 04/29/19 17:25 17:25 17:25 WBC RBC Hgb Hct MCV MCH MCHC RDW Plt Count Neut % (Auto) Lymph % (Auto) [place] % (Auto) Eos % (Auto) Baso % (Auto) Neut # (Auto) Lymph # (Auto) [place] # (Auto) Eos # (Auto) Baso # (Auto) PT INR APTT Sodium 134 L Potassium 4.8 Chloride 95 L Carbon Dioxide 26 BUN 22 H Creatinine 0.40 L Estimated GFR > 60.0 BUN/Creatinine Ratio 55.0 H Glucose 184 H Lactate Calcium 7.6 L Magnesium 2.0 Total Bilirubin 0.7 AST 39 ALT 33 Alkaline Phosphatase 135 H Ammonia Total Creatine Kinase 131 CK-MB (CK-2) 2.82 H CK-MB (CK-2) Rel Index 2.2 Troponin I < 0.012 B-Natriuretic Peptide Total Protein 6.1 L Albumin 3.7 Globulin 2.4 Albumin/Globulin Ratio 1.5 Procalcitonin < 0.05 Urine Color Urine Appearance Urine pH Ur Specific [place] Urine Protein Urine Glucose (UA) Urine Ketones Urine Occult Blood Urine Nitrate Urine Bilirubin Urine Urobilinogen Ur Leukocyte Esterase Urine RBC Urine WBC Amorphous Sediment Urine Bacteria Ur Culture Indicated? Digoxin 04/29/19 04/29/19 04/29/19 17:25 17:25 17:59 WBC RBC Hgb Hct MCV MCH MCHC RDW Plt Count Neut % (Auto) Lymph % (Auto) [place] % (Auto) Eos % (Auto) Baso % (Auto) Neut # (Auto) Lymph # (Auto) [place] # (Auto) Eos # (Auto) Baso # (Auto) PT 15.0 H INR 1.3 APTT 31 D Sodium Potassium Chloride Carbon Dioxide BUN Creatinine Estimated GFR BUN/Creatinine Ratio Glucose Lactate 2.4 H Calcium Magnesium Total Bilirubin AST ALT Alkaline Phosphatase Ammonia Total Creatine Kinase CK-MB (CK-2) CK-MB (CK-2) Rel Index Troponin I B-Natriuretic Peptide Total Protein Albumin Globulin Albumin/Globulin Ratio Procalcitonin Urine Color Yellow Urine Appearance Clear Urine pH 5.0 Ur Specific [place] 1.010 Urine Protein Negative Urine Glucose (UA) Negative Urine Ketones Negative Urine Occult Blood Trace-lysed Urine Nitrate Negative Urine Bilirubin Negative Urine Urobilinogen 0.2 Ur Leukocyte Esterase Negative Urine RBC 1-5/hpf Urine WBC None seen Amorphous Sediment 2+ Urine Bacteria None seen Ur Culture Indicated? Cult not indicated Digoxin 04/29/19 19:53 WBC RBC Hgb Hct MCV MCH MCHC RDW Plt Count Neut % (Auto) Lymph % (Auto) [place] % (Auto) Eos % (Auto) Baso % (Auto) Neut # (Auto) Lymph # (Auto) [place] # (Auto) Eos # (Auto) Baso # (Auto) PT INR APTT Sodium Potassium Chloride Carbon Dioxide BUN Creatinine Estimated GFR BUN/Creatinine Ratio Glucose Lactate 2.9 H Calcium Magnesium Total Bilirubin AST ALT Alkaline Phosphatase Ammonia Total Creatine Kinase CK-MB (CK-2) CK-MB (CK-2) Rel Index Troponin I B-Natriuretic Peptide Total Protein Albumin Globulin Albumin/Globulin Ratio Procalcitonin Urine Color Urine Appearance Urine pH Ur Specific [place] Urine Protein Urine Glucose (UA) Urine Ketones Urine Occult Blood Urine Nitrate Urine Bilirubin Urine Urobilinogen Ur Leukocyte Esterase Urine RBC Urine WBC Amorphous Sediment Urine Bacteria Ur Culture Indicated? Digoxin Assessment & Plan Assessment & Plan narrative: This is a 58-year-old male patient who appears ol ana paula than his stated age presents to the emergency department with worsening lower extremity edema extending into the groin today with progressive weakness and immobility over the last 2 weeks. Patient has history of cardiac disease with atrial fibrillation and congestive heart failure with preserved EF. He has also completed chemotherapy for prostate cancer with known metastases now undergoing radiation therapy. 1. Acute exacerbation CHF, possibly related to radiation therapy, present on admission, active. -worsening edema starting 2 weeks ago with no complaints of chest pain or shortness of breath. Patient describes worsening mobility related to pain not dyspnea. -CT scan identifies enlarged liver, chest x-ray with pulmonary vascular congestion, microcytic hypochromic anemia, H&H of 10.3 and 32.9, corrected calcium 8.0. -echocardiogram obtained in February 2019 finds normal LV thickness, wall motion and size with an EF of 60-65%. Mild increase RV size with reportedly normal function with elevated PA pressures of 50, Severe dilation of bilateral atria. -patient with atrial fibrillation at a controlled rate of 89 on 12 lead EKG. No ectopy is noted inverted T-wave identified in V2 without ST changes. -cardiac panel is negative with a BNP 172, will recheck troponin. Will also c heck TSH and lipid panel. -patient received 60 mg of furosemide in the ER with diuresis of approximately 2 L, diuresis with Lasix 40 mg twice daily, calcium 1000 mg p.o. tonight, continue home regimen of calcium 500 mg p.o. daily. -will obtain echocardiogram. 2. Chronic atrial fibrillation, present on admission, active. -history of atrial fibrillation for over 10 years, anticoagulated on apixaban 5 mg twice daily. -no complaints of chest pain, no palpitations underwear of irregular rhythm. -continue home regimen of digoxin 0.250 mg daily, digital level is low at 0.6, ordered 1 time dose of digoxin 0.125 mg p.o. tonight. 3. Prostate cancer with metastases, present on admission, active -status post prostatectomy in 2009, patient has completed 9 cycles of chemotherapy currently undergoing radiation therapy. -microcytic hypochromic anemia with a hemoglobin of 10.3 and hematocrit of 32.9 -CT of the chest abdomen pelvis finds diffuse lymphadenopathy and multiple foci apical and appendicular skeletal metastases. -continue pain management regimen of MS Contin 60 mg 3 times daily and vance apentin 600 mg 3 times daily. -PT and OT to evaluate and treat. 4. Diabetes type 2, non insulin dependent, chronic cough present on admission, active -patient takes metformin 500 mg twice daily, glucose on admission labs is 184. -fingerstick blood sugars AC and HS, correctional insulin low scale. -will obtain hemoglobin A1c. 5. Obstructive sleep apnea, chronic, present on admission, stable -patient use BiPAP machine at home at night, requested family bring in the patient's own equipment. -respiratory therapy to consult and treat, BiPAP per RT protocol, supplemental oxygen to maintain SpO2 greater than 92%. 6. Gout, chronic, stable -no evidence of a gout on admission. -continue patient's home regimen of allopurinol 300 mg daily. -will check uric acid level with increased use of thiazide diuretics. The patient is admitted to the hospital related to exacerbation CHF and potential for complications and adverse events. The patient is admitted as observation status with expected length of stay to be less than 2 midnights. Time Spent With Patient Time with patient: 25 - 35 minutes Scores GCS Hodan coma scale eye opening: Spontaneous Hodan coma scale verbal response: Orientated Stuart coma scale motor response: Obey commands Stuart coma scale total score: 15
--- NOTE | 2019-04-29 22:04 | PC.ADMIT ---
2114 to acute care from ER. Transferred via stretcher, slider board to bed. Alert/oriented. Reports chronic pain 6/10 in left shoulder, right hip and back. Skin breakdown on scrotum, coccyx and bilateral knees. Also has redness and open areas on left hand fingers. Pictures taken for documentation. Oriented pt to room/call light. Bed alarm on/high fall risk. History of falling two times in last 24hrs at home. Folds/hannah area and back cleaned and barrier cream applied. Daughter Raissa present during admission. Took medications home. [email or web address] Admission Note: The patient,Roel Jansen,58 y/o, was given written information regarding hospital policies, unit procedures and contact persons. Patient's smoking status: Former smoker. Vital Signs - 8 hr 04/29/19 17:25 04/29/19 17:35 04/29/19 18:00 Temperature 97.2 F L Pulse Rate 97 H 90 92 H Respiratory Rate 19 18 22 Blood Pressure 133/85 Blood Pressure [Right Arm] 119/75 114/70 Pulse Oximetry 100 98 98 04/29/19 18:33 04/29/19 19:34 04/29/19 20:16 Temperature Pulse Rate 92 H 88 100 H Respiratory Rate 18 18 24 Blood Pressure Blood Pressure [Right Arm] 105/65 99/67 Pulse Oximetry 98 98
[2019-04-29] MEDS: APIXABAN 5 MG TABLET PO (22:17)
[2019-04-29] MEDS: CALCIUM CARBONATE 500 MG TAB 1000 MG PO (22:17)
[2019-04-29] MEDS: MORPHINE ER 30 MG TABLET 60 MG PO (22:18)
[2019-04-29] MEDS: DIGOXIN 0.125 MG TABLET PO (22:18)
[2019-04-29] MEDS: dexAMETHasone 4 MG TABLET PO (22:18)
[2019-04-29] MEDS: ACETAMINOPHEN 325 MG TABLET 1000 MG PO (22:19)
--- NOTE | 2019-04-29 22:43 | PC.NURSE ---
Pt. arrived to the unit Pictures taken on pts. bilateral hands, bilateral knees, scrotum, and his sacral area. Noted a healing cut on pts. left middle finger with all his finger nails discolored, scrotum has several linear abrasions, both knees pink with the left knee slightly bruised, sacral area with superficial abrasions with bottom part non blanchable. Perirectal area cleansed and barrier cream applied afterwards. Oriented pt. to call light use and bed control use.
--- NOTE | 2019-04-29 22:48 | PC.NURSE ---
Asked pt. is he has a document on advanced directives, states no but this was already discussed to him and will get the paperworks supposedly sometime tomorrow.
[2019-04-29 23:28] LABS: Troponin I < 0.012 ng/mL (0.01-0.034)
[2019-04-30] MEDS: FUROSEMIDE 40 MG/4 ML VIAL IV ×3 (00:03→23:42)
[2019-04-30 03:00] VITALS: BP 114/73; PULSE 82; RESP 18; TEMP 36.8; O2SAT 98
[2019-04-30] MEDS: ACETAMINOPHEN 325 MG TABLET 1000 MG PO ×3 (05:35→20:52)
[2019-04-30 05:46] LABS: Add Manual Diff / Slide Review NO; Basophils Absolute Auto 100 /uL (0-100); Basophils Percent Auto 0.8 % (0-2); Eosinophils Absolute Auto 0 /uL (0-450); Hemoglobin 9.7 g/dL (13.5-17.5); Lymphocytes Absolute Auto 300 /uL (1100-4500); Lymphocytes Percent Auto 3.8 % (25-40); Mean Corpuscular HGB Conc 32.3 % (30-36); Mean Corpuscular Hemoglobin 23.9 PG (26-34); Monocytes Absolute Auto 400 /uL (0-900); Monocytes Percent Auto 5.3 % (3-14); Neutrophils Absolute Auto 7200 /uL (1500-7000); Neutrophils Percent Auto 90.1 % (50-75); Platelet Count 190 X10^3/uL (150-400); Red Blood Cell Count 4.06 X10^6/uL (4.5-5.9); Red Cell Distribution Width 19.1 % (11.6-14.8); White Blood Cell Count 7.9 X10^3/uL (4.5-11.0)
[2019-04-30 05:50] LABS: Hemoglobin A1C% w Est Avg Glu 5.3 % (4.0-6.0)
[2019-04-30 05:51] LABS: Uric Acid 4.3 mg/dL (3.5-8.5)
[2019-04-30 05:52] LABS: BUN Creatinine Ratio 47.5 (6-22); Blood Urea Nitrogen 19 mg/dL (9-20); Calcium 7.4 mg/dL (8.4-10.2); Carbon Dioxide 29 mmol/L (22-32); Chloride 95 mmol/L (98-107); Cholesterol 93 mg/dL (140-199); Estimated Glomerular Filt Rate > 60.0 mL/min (>60); Glucose 163 mg/dL (70-100); HDL Cholesterol 56 mg/dL (40-60); HEMOLYSIS < 15 (0-50); LDL Cholesterol Calculated 30 mg/dL (<100); Magnesium 2.2 mg/dL (1.6-2.3); Potassium 3.8 mmol/L (3.4-5.1); Sodium 132 mmol/L (137-145); Triglycerides 34 mg/dL (35-150)
[2019-04-30 06:33] LABS: Thyroid Stimulating Hormone 0.18 uIU/mL (0.47-4.68)
[2019-04-30] MEDS: CALCIUM CARBONATE 500 MG TAB 1000 MG PO (06:34)
[2019-04-30 07:15] LABS: Free T4, Direct Thyroxine 1.43 ng/dL (0.78-2.19)
[2019-04-30 07:50] VITALS: BP 108/67; PULSE 72; RESP 20; TEMP 36.5; O2SAT 91
[2019-04-30] MEDS: FERROUS GLUCONATE 324 MG TABLET PO (08:25)
[2019-04-30] MEDS: APIXABAN 5 MG TABLET PO ×2 (08:25→20:52)
[2019-04-30] MEDS: MORPHINE ER 30 MG TABLET 60 MG PO ×3 (08:25→20:52)
[2019-04-30] MEDS: GABAPENTIN 600 MG TABLET PO ×3 (08:25→20:51)
[2019-04-30] MEDS: CALCIUM CARBONATE 500 MG TAB PO ×2 (08:26→20:52)
[2019-04-30] MEDS: ALLOPURINOL 300 MG TABLET PO (09:01)
[2019-04-30] MEDS: DIGOXIN 0.25 MG TABLET PO (09:01)
[2019-04-30] MEDS: dexAMETHasone 4 MG TABLET PO ×2 (09:01→20:55)
[2019-04-30] MEDS: INSULIN ASPART 100 UNIT/ML INSULN PEN SUBCUT ×3 (09:02→16:59)
--- NOTE | 2019-04-30 09:08 | CM.DANOTE ---
DCP: Case received, EMR reviewed and met with patient. Introduced self and role. Was able to speak to patient in his room to obtain baseline health and activity information. DCP assessment/template completed with information currently available. Patient is a 58 year old male who admitted yesterday evening to the care of the hospitalist team. PCP: Dr. López. Payer: confirmed: [employer] Options/Medicaid. Patient came to the hospital via private vehicle secondary to lower extremity swelling. Patient has history of a-fib, as well as prostate cancer with metastasis, diabetes and CHF. Patient is currently going to [facility] to see a licensing worker/oncologist, and gets radiation at [facility] in [place]. Patient had some urinary retention, and moran was inserted. Met with patient in his room, he was sitting up in bed, hard of hearing. Confirmed with patient that he resides in [place] with his daughters, and his ex-. He confirmed that he uses a walker at home, does not drive. He has help with showers and meals. P: DCP to continue to follow closely and be available for any resources as the plan unfolds. Patient could benefit from home health nursing, if he returns home with a catheter. Will see if he can get P.T, as well. Sarina Ochoa RN/Cardiac Cath Tech
--- NOTE | 2019-04-30 10:46 | PC.NURSE ---
Addendum entered by Cheryl Pompa R.N. 04/30/19 14:31: MS/PAIN - pt up x 2 person w/fww and tsf to chair for lunch, later afternoon when fatigued, assisted back to bed, admin scheduled pain medication. Original Note: AM NOTE - pt is alert, skin color is pale, abd is distended, states pain r hip, l shoulder and spine 5-6 on scale 0/10, given scheduled morphine, generalized le edema, scrotal edema w/excoriated areas, open area near coccyx, r gluteal fold, assisted x 2 person up to dangle, denies dizziness, tsf to bsc w/small light brown stool, pericare performed, abd skin folds cleaned and intradry placed, bs clear, ret to bed.
--- NOTE | 2019-04-30 11:18 | PT.IIE ---
Surgical History (Last Reviewed 04/29/19 @ 22:10 by CARLA Rose) H/O hernia repair (Chronic) History of prostatectomy (Acute) Status post vasectomy (Chronic) Medical History (Last Reviewed 04/29/19 @ 22:09 by CARLA Rose) Atrial fibrillation with controlled ventricular rate (Chronic) Chronic back pain (Chronic) Diabetes type 2, controlled (Chronic) Fatigue (Chronic) Gout (Chronic) Obstructive sleep apnea of adult (Chronic) Primary insomnia (Chronic) Prostate cancer (Chronic) Pulmonary embolism (Resolved) Physical Therapy Inpatient Evaluation/Re-Eval M1 PT/OT-IP Prior Functional Status Start: 04/30/19 09:23 Freq: NEEDED Status: Active Protocol: Document 04/30/19 10:35 AW (Rec: 04/30/19 11:18 AW [id number]) Medical Review Prior Functional Status Medical History Reviewed Yes Communication Able to make needs known, no known deficits, hard of hearing Mobility and Gait Pt reports he was able to ambulate household distances without AD until about a week ago. For community distances, he often used a 4WW or transport w/c when at hospital appointments. Activities of Daily Living and IADL's Until a week ago, pt reports he was independent with all ADL's. Pt has recently required assistance with dressing, toileting, bathing. His ex-, Chucho, lives with him and provides assistance as needed. She also helps with meals. Pt has not driven for years Prior Functional Level (Other details) Onset of increased BLE edema a week ago coincides with decreased independence with funtional mobility and ADL's. Pt reports inreased frequency of falls - now about once per month. Social History Household Members significant other,children Living Arrangements House Number of Floors (Floors) One Floor Number of Stairs To Enter/Railing? 1 CLAUDIA with no railing, but there is a banister for support. Old ramped entry available but unsafe. Home Environment Standard Height Toilet,Walk in Shower,Tub/Shower,Ramp Home Equipment Four Wheel Walker,Quad Cane, Straight Cane,Shower Seat with Backrest,Hand Held Shower Employment Status Retired Additional Social History Comment Pt lives with ex- Chucho, daughter Farhat, and roommate Neymar. Ex- is retired and available to assist as needed . M2 PT-IP Current Condition Start: 04/30/19 09:23 Freq: NEEDED Status: Active Protocol: Document 04/30/19 10:35 AW (Rec: 04/30/19 11:18 AW [id number]) Physical Therapy Current Condition Current Condition Evaluation Date 04/30/19 Treatment Diagnosis CHF exacerbation, BLE edema, difficulty in walking Onset Date 04/29/19 Precautions Other Precautions falls risk Weight Bearing Status Weight Bearing Status Full Weight Bearing M3 PT-IP Subjective Start: 04/30/19 09:23 Freq: NEEDED Status: Active Protocol: Document 04/30/19 10:35 AW (Rec: 04/30/19 11:18 AW [id number]) Subjective Physical Therapy Visit Type Type Initial Evaluation Visit Start Time 09:50 Visit Stop Time 10:25 Total Visit Minutes 35 Notes Ex-, Chucho, present throughout evaluation Physical Therapy Visit Comments Patient Comments Pt is tired but willing to participate with therapy Patient Goals Pt hopes to return home with family assist. M4 PT-IP Mobility and Gait Start: 04/30/19 09:23 Freq: NEEDED Status: Active Protocol: Document 04/30/19 10:35 AW (Rec: 04/30/19 11:18 AW [id number]) PT-Bed Mobility Assessment Rolling Type of Rolling Roll to Right Level of Assist Independent Supine to Sit Supine to Sit Standby Assistance Sit to Supine Sit to Supine Standby Assistance Scooting Scooting to Edge of Bed Standby Assistance Scooting Up and Down in Bed Independent PT-Transfer Assessment Sit to and From Stand Sit to and from Stand Contact Guard Assistance, Minimal Assistance,1 Person Assistance,Use of Upper Extremities Equipment Transfer Assistive Device Gait Belt,Front Wheeled Walker Orthotic/Prosthetic Devices or Brace: No Transfers Transfer Destination Bed Transfer Technique pt ambulated with FWW Transfer Ability Level of Assist Contact Guard Assistance, Minimal Assistance Comments Mobility Comments Pt required SBA for most bed mobility. CGA to min assist and verbal cues for hand placement/sequencing to complete sit to stand using FWW. Pt presents with externally rotated hips in bed , in sitting, and in weightbearing. Unclear how much ER is baseline vs compensation for BLE/groin swelling. Gait Assessment Gait Gait Assistance Required: Contact Guard Assist Distance (Feet) 20 Able to Maintain Weight Bearing Status Yes During Gait Assistive Devices Assistive Device Gait Belt,Front Wheeled Walker Orthotic/Prosthetic Devices or Brace: No Gait Deviations General Gait Pattern Antalgic,Decreased Stride Length,Decreased Feet Clearance,Flexed Trunk,Wide Based Gait Factors Limiting Gait Function Factors Limiting Gait Function Decreased Activity Tolerance, Decreased Sensation,Decreased Strength,Pain,Poor Balance Comments Gait Comments Pt ambulated 20 feet in room using FWW CGA with no sign of respiratory distress. Gait is notable for wide base of support and externally rotated hips. It is challenging for him to keep his feet within the walker frame, but he exercises good judgement and safety awareness with FWW. PT-Balance Assessment Sitting Balance and Reactions Static Sitting Balance Ability Good Dynamic Sitting Balance Ability Good Standing Balance and Reactions Static Standing Balance Ability Good Dynamic Standing Balance Ability Fair Device Used FWW M5 PT-IP Objective Assessments Start: 04/30/19 09:23 Freq: NEEDED Status: Active Protocol: Document 04/30/19 10:35 AW (Rec: 04/30/19 11:18 AW [id number]) Orientation Orientation/Cognition Level of Alertness Alert Orientation Name,Date,Place,Situation Language Function Ability Hard of Hearing Safety Awareness Understands Safety Issues Memory Description No Deficits Noted Gross Range of Motion Upper Extremity ROM Assessment Left Impaired Impairments left shoulder limited in overhead movement. Lower Extremity ROM Assessment Bilaterally Impaired Impairments secondary to edema, right worse than left Strength Upper Extremity Strength Assessment Bilaterally Impaired Lower Extremity Strength Assessment Bilaterally Impaired Comments Strength Comments Pt can move LUE overhead, but unable to maintain position - left hand fell onto head. Bilateral hands affected by neuropathy. Pt wears gloves often due to poor temperature regulation. Notes he frequently drops items. Impaired video producer strength bilaterally - left worse than right. BLE hip flexion 3/5, knee extension 4/5, ankle DF 4/5. Coordination Assessment Gross Coordination Gross Coordination WNL Sensation Assessment Sensation Gross Sensation Right UE Impaired,Left UE Impaired,Right LE Impaired, Left LE Impaired Light Touch Impaired Sensation Description Numbness,Tingling,Coldness Comments Sensation Comments Neuropathy affects bilateral hands in glove distribution. Pt reports coldness and tingling/numbness. Bilateral plantar feet also affected with tingling/impaired light touch. M6 PT-IP Treatment Start: 04/30/19 09:23 Freq: NEEDED Status: Active Protocol: Document 04/30/19 10:35 AW (Rec: 04/30/19 11:18 AW [id number]) Physical Therapy Treatment Education Education Provided Precautions,Safety Other Treatments Other Treatment Performed Educated pt on safe use of FWW , including attempts to maintain base of support within walker frame. M7 PT-IP Assessment and Plan Start: 04/30/19 09:23 Freq: NEEDED Status: Active Protocol: Document 04/30/19 10:35 AW (Rec: 04/30/19 11:18 AW [id number]) PT Summary Assessment and Plan Potential Rehabilitation Potential Good Status of Condition at Evaluation Evolving Summary Impairments Pain,ROM,Strength,Balance, Sensation,Bed Mobility, Transfers,Gait,Activity Tolerance Assessment Summary Pt is a 58 yo man admitted with CHF exacerbation, BLE edema, and progressing weakness in the context of prostate cancer with metastases currently undergoing treatment. PLOF: Until a week ago, pt was mod independent with functional mobility - occasionally using a 4WW for household and community mobility. He often used a manual w/c for mobility at hospital appointments. He was independent with ADL's. In the past week, pt has increased dependence on 4WW, including in-home. He has also required increased assist with ADL's such as dressing, bathing, toileting. His ex- provides all assist. CLOF : Pt requiring CGA to min assist for transfers, CGA for short bout ambulation with FWW . Pt presents with increased dependence on AD and increased need for assistance with mobility, ADL's. He will likely be safe to discharge home but would benefit from home health services including PT to increase independence and safety in the home Goals Bed Mobility Goal Independent Transfer Goal Independent Gait Goal Standby Assistance Gait Distance 100 Other Goals up/down 1 step with CGA Days to Meet Goals 5 Frequency of Treatment Frequency Of Treatment Once a Day Treatment Plan Physical Therapy Treatment Plan Bed Mobility Training,Transfer Training,Gait Training, Therapeutic Exercise,Balance Retraining,Discharge Planning, Hot or Cold Pack,Neuromuscular Re-ed,Coordination Retraining ,Manual Therapy Other Recommendations and Next Treatment progress gait distance, trial Focus curb/step Recommendations To Nursing Amount of Assist Needed 1 Person Assist Discharge Recommendations PT Discharge Recommendations Home with Assistance,Home with 24/7 Assist,Home Health Equipment Needed for Home Before toilet riser, BSC, FWW. Ex- Discharge Chucho notes she can obtain all from [facility].
[2019-04-30] MEDS: POTASSIUM CHLORIDE 20 MEQ TAB PO ×2 (12:08→16:59)
[2019-04-30 13:20] VITALS: BP 106/63; PULSE 77; RESP 18; TEMP 36.9; O2SAT 97
[2019-04-30 15:15] VITALS: BP 112/78; PULSE 72; RESP 17; TEMP 36.1; O2SAT 98
--- NOTE | 2019-04-30 18:06 | P.PN_ITS ---
Subjective Subjective Interval history: Roel Jansen is a 58-year-old male with a past medical history significant for persistent atrial fibrillation on Eliquis, congestive heart failure with preserved ejection fraction, diabetes mellitus type 2, non-insulin using, MELVIN on BiPAP, gout, history of DVT with pulmonary embolism and advanced metastatic prostate cancer who presented to the ED with progressive worsening lower extremity edema extending into the groin today with progressive weakness and immobility over the last 2 weeks. The patient is resting in bed comfortably. He denies pain. He denies shortness of breath or dyspnea on exertion but reports he ?walks very slow? due to significant pain limiting mobility. The patient continues to report significant lower extremity and scrotal edema with skin breakdown that is is improving. He is currently net -6 L. He is voiding via Castle catheter and eliminating without difficulty. He denies headache, chest pain, shortness of breath, abdominal pain, nausea, vomiting, fever, chills, dysuria, diarrhea or constipation. He is up ambulating minimally with assistance. Exam Vital Signs (past 8 hours): - 04/30/19 15:15 04/30/19 20:25 Temperature 96.9 F L 97.8 F Pulse Rate 72 73 Respiratory Rate 17 18 Blood Pressure 112/78 104/65 Pulse Oximetry 98 98 Oxygen Delivery Method Room Air Oxygen Flow Rate 0 Narrative Exam Narrative: General: Middle aged male resting comfortably in bed and in no acute distress, appears older than stated age, well-developed, well-nourished, appropriately interactive. HEENT: Normocephalic, atraumatic. External ears without defect. Pupils equal, round, and reactive to light and accommodation. Anicteric sclerae, moist conjunctivae, and no lid lag. Oropharynx free of erythema and cobble stoning with moist mucosa. Significantly hard of hearing. Neck: Supple with full range of motion. Jugular venous distension present. No lymphadenopathy or thyromegaly. Cardiovascular: Regular rate and rhythm without murmurs, rubs, or gallops appreciated. Pulmonary: Clear to auscultation bilaterally without crackles, wheezes, or rhonchi. Normal respiratory effort with no use of accessory muscles. Abdomen: Soft, obese, nontender, nondistended. No hepatosplenomegaly or masses appreciated. Genitourinary: Scrotal edema with skin breakdown and moisture placed in sling to off load. Extremities: No clubbing or cyanosis. Generalized anasara with dependent edema to hips bilaterally. Neuropathy of bilateral hands/upper extremities with gloves in place. Skin: Normal temperature, turgor, and texture; no rash, ulcers, or subcutaneous nodules appreciated. Neurological: Cranial nerves grossly intact. Psychiatric: Depressed mood with emotional lability. Normal affect. Alert and oriented to person, place, and time. Objective Labs Result Diagrams: 05/01/19 05:05 05/01/19 05:05 Labs: Laboratory Results - last 24 hr 04/29/19 04/30/19 04/30/19 23:00 05:30 05:30 WBC 7.9 RBC 4.06 L Hgb 9.7 L Hct 30.0 L MCV 74.0 L MCH 23.9 L MCHC 32.3 RDW 19.1 H Plt Count 190 Neut % (Auto) 90.1 H Lymph % (Auto) 3.8 L [place] % (Auto) 5.3 Eos % (Auto) 0.0 L Baso % (Auto) 0.8 Neut # (Auto) 7200 H Lymph # (Auto) 300 L [place] # (Auto) 400 Eos # (Auto) 0 Baso # (Auto) 100 Sodium 132 L Potassium 3.8 Chloride 95 L Carbon Dioxide 29 BUN 19 Creatinine 0.40 L Estimated GFR > 60.0 BUN/Creatinine Ratio 47.5 H Glucose 163 H Hemoglobin A1c Uric Acid Calcium 7.4 L Magnesium 2.2 Troponin I < 0.012 Triglycerides 34 L Cholesterol 93 L LDL Cholesterol, Calc 30 HDL Cholesterol 56 TSH Free T4 04/30/19 04/30/19 04/30/19 05:30 05:30 05:30 WBC RBC Hgb Hct MCV MCH MCHC RDW Plt Count Neut % (Auto) Lymph % (Auto) [place] % (Auto) Eos % (Auto) Baso % (Auto) Neut # (Auto) Lymph # (Auto) [place] # (Auto) Eos # (Auto) Baso # (Auto) Sodium Potassium Chloride Carbon Dioxide BUN Creatinine Estimated GFR BUN/Creatinine Ratio Glucose Hemoglobin A1c 5.3 Uric Acid 4.3 Calcium Magnesium Troponin I Triglycerides Cholesterol LDL Cholesterol, Calc HDL Cholesterol TSH 0.18 L Free T4 04/30/19 04/30/19 05:30 17:39 WBC RBC Hgb Hct MCV MCH MCHC RDW Plt Count Neut % (Auto) Lymph % (Auto) [place] % (Auto) Eos % (Auto) Baso % (Auto) Neut # (Auto) Lymph # (Auto) [place] # (Auto) Eos # (Auto) Baso # (Auto) Sodium 134 L Potassium 4.3 Chloride 96 L Carbon Dioxide 30 BUN 24 H Creatinine 0.50 L Estimated GFR > 60.0 BUN/Creatinine Ratio 48.0 H Glucose 175 H Hemoglobin A1c Uric Acid Calcium 7.6 L Magnesium 2.3 Troponin I Triglycerides Cholesterol LDL Cholesterol, Calc HDL Cholesterol TSH Free T4 1.43 Assessment & Plan Assessment & Plan narrative: Roel Jansen is a 58-year-old male with a past medical history significant for persistent atrial fibrillation on Eliquis, congestive heart failure with preserved ejection fraction, diabetes mellitus type 2, non-insulin using, MELVIN on BiPAP, gout, history of DVT with pulmonary embolism and advanced metastatic prostate cancer who presented to the ED with progressive worsening lower extremity edema extending into the groin today with progressive weakness and immobility over the last 2 weeks. 1. Acute diastolic congestive heart failure exacerbation, present on admission. Active. -Patient presented with progressive worsening lower extremity edema with approximately 30 lb weight gain over the last 2 weeks. No complaints of chest pain or shortness of breath. Patient describes worsening mobility related to pain not dyspnea. -Chest x-ray interpreted by me demonstrated chronic right hemidiaphragm elevation with pulmonary vascular congestion consistent with CHF. -CT chest interpreted by me demonstrated mild edema in lower lung fissures. -Echocardiogram demonstrated preserved ejection fraction 60-65%, RVSP 40 mm Hg, and diastolic parameters unable to be assessed due to atrial fibrillation. -EKG demonstrated rate controlled atrial fibrillation without acute ischemic changes. -BNP 172. -Received furosemide 60 mg IV x1 with approximately 2 L diuresis in ED. Continue Lasix 40 mg twice daily. -Continue to monitor electrolytes and replete as necessary. Goal K+ 4.0 and Mg 2.0. -Continue strict I&O and daily weights. Net -6 L. 2. Widely metastatic prostate cancer, present on admission. Active. -Status post prostatectomy in 2009 with several different types and rounds of chemotherapy and currently undergoing palliative radiation at the [facility] where he has received all of his cancer care. -CT chest abdomen and pelvis without contrast demonstrates diffuse lym phadenopathy with multiple sclerotic foci within the axial and appendicular skeleton. -Continue pain management with home regimen of MS Contin 60 mg 3 times daily and gabapentin 600 mg 3 times daily. -Continue physical and occupational therapy evaluation treatment. 3. Permanent atrial fibrillation, chronic, present on admission. Stable. -History of permanent atrial fibrillation for over 10 years with history of DVT and pulmonary emboli. -Continue chronic anticoagulation with Eliquis 5 mg twice daily. -No complaints of chest pain or palpitations. -Continue home regimen of digoxin 0.250 mg daily. Digoxin level low at 0.6 and received one time additional dose of digoxin 0.125 mg. Not currently on rate control medication and reports he was taken off all other cardiac medications due to low normal blood pressure. 4. Diabetes mellitus type 2 in remission. -Hemoglobin A1c 5.3%. -Discontinued metformin 500 mg twice daily. -Continue diet control and discontinued blood glucose checks. 5. Obstructive sleep apnea on BiPAP, chronic, present on admission, stable -Patient use BiPAP and requested family bring in the patient's own equipment. -Consulted respiratory therapy for MELVIN protocol, supplemental oxygen to maintain SpO2 greater than 92%. 6. Gout, chronic, present on admission. Stable. -Uric acid level 4.3 and no evidence of gout flare. -Continue home allopurinol 300 mg daily. 7. Microcytic anemia, chronic, present on admission. Stable. -Secondary to iron deficiency and anemia of chronic disease. -Initial hemoglobin of 10.3 and hematocrit of 32.9. -Continue home ferrous gluconate 324 mg daily. -No overt signs of bleeding. -Continue to monitor CBC periodically. Disposition: Patient likely to discharge home in several days once adequately diuresed.
[2019-04-30 20:01] LABS: Blood Urea Nitrogen 24 mg/dL (9-20); Calcium 7.6 mg/dL (8.4-10.2); Carbon Dioxide 30 mmol/L (22-32); Chloride 96 mmol/L (98-107); Estimated Glomerular Filt Rate > 60.0 mL/min (>60); Glucose 175 mg/dL (70-100); HEMOLYSIS < 15 (0-50); Magnesium 2.3 mg/dL (1.6-2.3); Potassium 4.3 mmol/L (3.4-5.1); Sodium 134 mmol/L (137-145)
[2019-04-30 20:25] VITALS: BP 104/65; PULSE 73; RESP 18; TEMP 36.6; O2SAT 98
[2019-04-30 23:45] VITALS: BP 115/80; PULSE 74; RESP 18; TEMP 36.6; O2SAT 98
[2019-05-01] VITALS (7 sets, daily range): BP systolic 101–138; BP diastolic 66–77; PULSE 67–78; RESP 16–20; TEMP 36.3–36.9; O2SAT 96–99; BMI 33.0
[2019-05-01] MEDS: ACETAMINOPHEN 325 MG TABLET 1000 MG PO ×3 (04:46→20:43)
[2019-05-01 05:28] LABS: Add Manual Diff / Slide Review NO; Basophils Absolute Auto 0 /uL (0-100); Basophils Percent Auto 0.6 % (0-2); Eosinophils Absolute Auto 0 /uL (0-450); Eosinophils Percent Auto 0.1 % (2-4); Hematocrit 31.2 % (41-53); Hemoglobin 9.8 g/dL (13.5-17.5); Lymphocytes Absolute Auto 400 /uL (1100-4500); Lymphocytes Percent Auto 5.8 % (25-40); Mean Corpuscular HGB Conc 31.5 % (30-36); Mean Corpuscular Hemoglobin 23.6 PG (26-34); Monocytes Absolute Auto 400 /uL (0-900); Monocytes Percent Auto 6.8 % (3-14); Neutrophils Absolute Auto 5500 /uL (1500-7000); Neutrophils Percent Auto 86.7 % (50-75); Platelet Count 191 X10^3/uL (150-400); Red Blood Cell Count 4.16 X10^6/uL (4.5-5.9); Red Cell Distribution Width 18.8 % (11.6-14.8); White Blood Cell Count 6.4 X10^3/uL (4.5-11.0)
[2019-05-01 05:36] LABS: Blood Urea Nitrogen 24 mg/dL (9-20); Calcium 7.5 mg/dL (8.4-10.2); Carbon Dioxide 33 mmol/L (22-32); Chloride 96 mmol/L (98-107); Estimated Glomerular Filt Rate > 60.0 mL/min (>60); Glucose 161 mg/dL (70-100); HEMOLYSIS < 15 (0-50); Magnesium 2.2 mg/dL (1.6-2.3); Potassium 4.3 mmol/L (3.4-5.1); Sodium 135 mmol/L (137-145)
--- NOTE | 2019-05-01 05:48 | PC.NURSE ---
Pt doing well, pain controlled with scheduled meds. Castle patent and draining clear yellow urine. 3,000mL output this shift, received lasix at midnight. Fluid restriction maintained. Educated pt on importance of T&P q2h, pt receptive. Has skin breakdown to coccyx. Pillow support used for T&P q2h. B/L legs elevated overnight. Scrotum elevated due to swelling. Tele: Afib CVR
[2019-05-01] MEDS: CALCIUM CARBONATE 500 MG TAB PO ×2 (08:25→20:43)
[2019-05-01] MEDS: FERROUS GLUCONATE 324 MG TABLET PO (08:25)
[2019-05-01] MEDS: ALLOPURINOL 300 MG TABLET PO (08:25)
[2019-05-01] MEDS: APIXABAN 5 MG TABLET PO ×2 (08:25→20:43)
[2019-05-01] MEDS: DIGOXIN 0.25 MG TABLET PO (08:25)
[2019-05-01] MEDS: POTASSIUM CHLORIDE 20 MEQ TAB PO ×3 (08:25→17:38)
[2019-05-01] MEDS: GABAPENTIN 600 MG TABLET PO ×3 (08:26→20:43)
[2019-05-01] MEDS: MORPHINE ER 30 MG TABLET 60 MG PO ×3 (08:26→20:43)
[2019-05-01] MEDS: INSULIN ASPART 100 UNIT/ML INSULN PEN SUBCUT (08:26)
[2019-05-01] MEDS: dexAMETHasone 4 MG TABLET PO ×2 (09:48→20:47)
--- NOTE | 2019-05-01 10:14 | PM.PN.1 ---
Subjective Subjective Date Patient Seen: 05/01/19 Interval history: Roel Jansen is a 58-year-old male with a past medical history significant for persistent atrial fibrillation on Eliquis, congestive heart failure with preserved ejection fraction, diabetes mellitus type 2, non-insulin using, MELVIN on BiPAP, gout, history of DVT with pulmonary embolism and advanced metastatic prostate cancer who presented to the ED with progressive worsening lower extremity edema extending into the groin today with progressive weakness and immobility over the last 2 weeks. The patient is lying in bed comfortably. His legs are elevated and his lower extremity edema has markedly improved. He continues to have dependent edema to hips bilaterally and scrotal edema but also improved. He is net -8.5 L. Discussed shortness of breath and dyspnea on exertion for which the patient admitted he would have if he was able to walk more quickly but he is unable to do so due to pain. He denies orthopnea or paroxysmal nocturnal dyspnea. He endorses right hip pain when he is on the toilet or on the edge of the bed that resolves with position change. He reports he feels somewhat stronger. He has no other complaints and denies headache, chest pain, shortness of breath, abdominal pain, nausea, vomiting, fever, chills, dysuria, diarrhea or constipation. He is voiding via Castle catheter and eliminating without difficulty. He is up ambulating with assistance. Exam Vital Signs (past 8 hours): - 05/01/19 08:25 05/01/19 12:00 05/01/19 15:37 Temperature 98.5 F 97.5 F L Pulse Rate 78 72 73 Respiratory Rate 18 20 Blood Pressure 115/69 101/66 Pulse Oximetry 99 97 Oxygen Delivery Method Room Air Oxygen Flow Rate 0 Narrative Exam Narrative: General: Middle aged male resting comfortably in bed and in no acute distress, appears older than stated age, well-developed, well-nourished, appropriately interactive. HEENT: Normocephalic, atraumatic. External ears without defect. Pupils equal, round, and reactive to light and accommodation. Anicteric sclerae, moist conjunctivae, and no lid lag. Oropharynx free of erythema and cobble stoning with moist mucosa. Significantly hard of hearing. Neck: Supple with full range of motion. Jugular venous distension resolved. No lymphadenopathy or thyromegaly. Cardiovascular: Irregularly irregular without murmurs, rubs, or gallops appreciated. Pulmonary: Clear to auscultation bilaterally without crackles, wheezes, or rhonchi. Normal respiratory effort with no use of accessory muscles. Abdomen: Soft, obese, nontender, nondistended. No hepatosplenomegaly or masses appreciated. Genitourinary: Scrotal edema improved with mild skin breakdown and moisture placed in sling to off load. Extremities: No clubbing or cyanosis. Generalized anasarca with dependent edema to hips bilaterally, impoved. Neuropathy of bilateral hands/upper extremities with gloves in place. Skin: Normal temperature, turgor, and texture; no rash, ulcers, or subcutaneous nodules appreciated. Neurological: Cranial nerves grossly intact. Psychiatric: Depressed mood with emotional lability. Normal affect. Alert and oriented to person, place, and time. Objective Labs Result Diagrams: 05/01/19 05:05 05/01/19 05:05 Labs: Laboratory Results - last 24 hr 04/30/19 05/01/19 05/01/19 17:39 05:05 05:05 WBC 6.4 RBC 4.16 L Hgb 9.8 L Hct 31.2 L MCV 75.0 L MCH 23.6 L MCHC 31.5 RDW 18.8 H Plt Count 191 Neut % (Auto) 86.7 H Lymph % (Auto) 5.8 L [place] % (Auto) 6.8 Eos % (Auto) 0.1 L Baso % (Auto) 0.6 Neut # (Auto) 5500 Lymph # (Auto) 400 L [place] # (Auto) 400 Eos # (Auto) 0 Baso # (Auto) 0 Sodium 134 L 135 L Potassium 4.3 4.3 Chloride 96 L 96 L Carbon Dioxide 30 33 H BUN 24 H 24 H Creatinine 0.50 L 0.50 L Estimated GFR > 60.0 > 60.0 BUN/Creatinine Ratio 48.0 H 48.0 H Glucose 175 H 161 H Calcium 7.6 L 7.5 L Magnesium 2.3 2.2 Assessment & Plan Assessment & Plan narrative: Roel Jansen is a 58-year-old male with a past medical history significant for persistent atrial fibrillation on Eliquis, congestive heart failure with preserved ejection fraction, diabetes mellitus type 2, non-insulin using, MELVIN on BiPAP, gout, history of DVT with pulmonary embolism and advanced metastatic prostate cancer who presented to the ED with progressive worsening lower extremity edema extending into the groin today with progressive weakness and immobility over the last 2 weeks. 1. Acute diastolic congestive heart failure exacerbation, present on admission. Active. -Patient presented with progressive worsening lower extremity edema with approximately 30 lb weight gain over the last 2 weeks. No complaints of chest pain or shortness of breath. Patient describes worsening mobility related to pain not dyspnea. -Chest x-ray interpreted by me demonstrated chronic right hemidiaphragm elevation with pulmonary vascular congestion consistent with CHF. -CT chest interpreted by me demonstrated mild edema in lower lung fissures. -Echocardiogram demonstrated preserved ejection fraction 60-65%, RVSP 40 mm Hg, and diastolic parameters unable to be assessed due to atrial fibrillation. -EKG demonstrated rate controlled atrial fibrillation without acute ischemic changes. -BNP 172. -Received furosemide 60 mg IV x1 with approximately 2 L diuresis in ED. Continue Lasix 40 mg twice daily. -Continue to monitor electrolytes and replete as necessary. Goal K+ 4.0 and Mg 2.0. -Continue strict I&O and daily weights. Net -8.5 L. 2. Advanced metastatic prostate cancer, chronic, present on admission. Active. -Status post prostatectomy in 2009 with several different types and rounds of chemotherapy and currently undergoing palliative radiation at the [facility] where he has received all of his cancer care. -CT chest abdomen and pelvis without contrast demonstrates diffuse lymphadenopathy with multiple sclerotic foci within the axial and appendicular skeleton. -Continue pain management with home regimen of MS Contin 60 mg 3 times daily and gabapentin 600 mg 3 times daily. -Continue physical and occupational therapy evaluation treatment. 3. Permanent atrial fibrillation, chronic, present on admission. Stable. -History of permanent atrial fibrillation for over 10 years with history of DVT and pulmonary emboli. -Continue chronic anticoagulation with Eliquis 5 mg twice daily. -No complaints of chest pain or palpitations. -Continue home regimen of digoxin 0.250 mg daily. Digoxin level low at 0.6 and received one time additional dose of digoxin 0.125 mg. Not currently on rate control medication and reports he was taken off all other cardiac medications due to low normal blood pressure. 4. Obstructive sleep apnea on BiPAP, chronic, present on admission, stable -Patient use BiPAP and requested family bring in the patient's own equipment. -Consulted respiratory therapy for MELVIN protocol. -May use supplemental oxygen to maintain SpO2 88-92%. 5. Gout, chronic, present on admission. Stable. -Uric acid level 4.3 and no evidence of gout flare. -Continue home allopurinol 300 mg daily. 6. Microcytic anemia, chronic, present on admission. Stable. -Secondary to iron deficiency and anemia of chronic disease. -Initial hemoglobin of 10.3 and hematocrit of 32.9. -Continue home ferrous gluconate 324 mg daily. -No overt signs of bleeding. -Continue to monitor CBC periodically. 7. Diabetes mellitus type II in remission. -Hemoglobin A1c 5.3%. -Discontinued metformin 500 mg twice daily. -Continue diet control and discontinued blood glucose checks. Disposition: Patient likely to discharge home in 1-2 days once adequately diuresed.
--- NOTE | 2019-05-01 11:31 | DIET.PN ---
Dietary Progress Note Assessment: 58y M admitted for CHF exacerbation reporting 30# wt gain in ~2w referred to nutrition for CHF exacerbation, fluid restriction, obesity, and cancer. Pt was 150kg prior to prostate Ca dx and dropped 50kg without effort r/t Ca. Has maintained 104kg range past 10y until beginning radiation on 04/21/19 when he climbed to 108kg then jumped to 117kg on 04/25/19. Wt upon admission on 04/29/19 was 115.5kg. Pt is -6L fluids and still diuresing. PMHx: Pt was diagnosed c CHF 15y ago, has been on female hormones, has taste changes associate c chemo which changes his eating patterns. Pt reports meds make him constantly hungry and px makes him tend towards comfort eating, often feels thirsty. Pt craves hamburgers, steak, eggs, chicken soup, doughnuts. Pt quite seriously says he would rather full and happy than live longer without being able to enjoy, seemed not to come out of defiance, but heartfelt truth for him. Pt recently moved and cannot find glucometer, curious if his insurance will cover new one as nursing asking him if he checks BG regularly (A1c 5.3, BG range 161-184). HT: 180.3cm WT: 107.4kg ( not reflective of dry wt) UBW: 104kg BMI: 33.0 (skewed, fluid on board) Labs: Na 132-135 L, A1c 5.3, BG 161-184 MNA:11 at risk Kushal: 16 Nutrition Diagnosis: Unintended weight gain of 27# in 2 weeks r/t CHF exacerbation and possible radx side effects (met prostate Ca) aeb +3-4 bilateral lower extremity edema and +2 upper extremity edema upon admission, -6L fluids in past 24h, altered laboratory values (Na+ 132-135) Interventions: 1. Educated pt and loan interviewer mortgage on consuming adequate PRO to help keep fluid in vessels and maintain LBM. Gave handout on PRO content of foods, recc food form first as pt needs to consider fluid load. 2. Discussed fluid and wt monitoring upon d/c, provided handout on what does and does not count as a fluid. Diet Order: HH/ fluid restriction 1.5L EER: 2200 kcal, 115g PRO (1.1g/kg) Monitoring/Evaluations: wt, associated labs
--- NOTE | 2019-05-01 12:08 | PC.NURSE ---
Addendum entered by Mignon Means R.N. 05/01/19 15:10: Patients ex Kamille will be back this evening 04/30 with patients bipap. RT contacted in reference to current BiPap order. Addendum entered by Mignon Means R.N. 05/01/19 14:53: Called and left message with patient's ex- to please bring patients personal BiPap machine in. Original Note: 0900:Patient A/Ox4. Patient denies SOB, chest pain, N/V. C/O pain in R hip and L shoulder. Pt ambulated to bathroom for BM, voiding via catheter. Catheter care and hannah care provided. Patient using FWW, 1 p assist. Patient back to chair for breakfast. Legs elevated. Denies further needs at this time.
[2019-05-01] MEDS: FUROSEMIDE 40 MG/4 ML VIAL IV ×2 (12:31→23:43)
--- NOTE | 2019-05-01 14:05 | DI.RAD.S_ITS ---
PROCEDURE: XR CHEST 1V INDICATIONS: Pulm edema/CHF, Anasarca TECHNIQUE: One view of the chest was acquired. COMPARISON: [facility], CR, XR CHEST 1V, 04/29/2019, 17:37. Lung bases on CT abdomen and pelvis 05/02/2007 FINDINGS: Surgical changes and devices: None. Lungs and pleura: Lungs are clear. No pleural effusions or pneumothorax. Mediastinum: Mediastinal contours are unchanged. Asymmetric elevation of the right hemidiaphragm. Heart size is within normal limits. Bones and chest wall: No suspicious bony lesions. Overlying soft tissues appear unremarkable. IMPRESSION: No acute cardiopulmonary abnormality. Dictated by: Abdulkadir Blanchard M.D. on 05/01/2019 at 14:37 Approved by: Abdulkadir Blanchard M.D. on 05/01/2019 at 14:39
--- NOTE | 2019-05-01 14:19 | OT.IP.TRT ---
Occupational Therapy Treatment Note M3 OT- IP Subjective and Pain Start: 05/01/19 14:11 Freq: Status: Active Protocol: Document 05/01/19 14:11 [facility] (Rec: 05/01/19 14:19 [facility] [id number]) OT- Subjective Occupational Therapy Visit Type Type Patient Refusal Notes Pt states would rather stay in bed now as legs propped up and apart due to swelling of scrotum. Therefore to check on pt tomorrow for OT eval.
--- NOTE | 2019-05-01 15:02 | CM.DPC ---
DCP: continued: Case received, EMR reviewed. Discussed in Team Rounds. Dr. Mckeon noted that pt would likely need several more days of acute level hospital care. Admission status: now confirmed INPT: per UR RN Abdulkadir: from 04/29 and forward. Payer: [facility] [employer]/Medicaid. DCP assessment notes reviewed and see that a home plan with family assist and the addition of HHS has been discussed. Pt is currently in bed with legs elevated. Edema from hips to feet and scotum extremely swollen. OT was unable to work with pt today. PT did see him for initial assessment and noted at baseline he manages mobility in the home setting with prn assist for meals, medications and ADL assist/ Wondered about looking at SNF setting as option is pt should have needs that could be managed at the SNF setting but would be difficult initially in the home setting w HHS. Fact Finding: Asked [facility] to check to see what the process of getting an [employer]/HO/Medicaid SNF auth might look like and if they would be agreeable to taking this on if the need arose. Radha/[facility] says she thinks a single case agreement is all that is need but will discuss further with her team. Met then with pt and introduced self and role. He confirms that the radiation treatment he receives at [facility] in [facility] is palliative. It's to help lessen the pain. He goes to the [facility] to see his oncologist. Discussed consideration of a SNf plan as a possible option in case of need for more care at d/c than could be safely done in home setting and if the physician team thinks this might be needed. (planned to discuss this with Dr. Mckeon when she is available, otherwise will discuss tomorrow in Team Rounds). He agreed this might be a possibility but wants to discuss this with Kamille first. Will be checking in and following prn. Will also await direction from the hospitalist team. P: home with family care and HHS vs ? short snf stay...to be determined.
--- NOTE | 2019-05-01 15:55 | PT.IPTN ---
Physical Therapy Treatment Note M2 PT-IP Current Condition Start: 04/30/19 09:23 Freq: NEEDED Status: Active Protocol: Document 04/30/19 10:35 AW (Rec: 04/30/19 11:18 AW [id number]) Physical Therapy Current Condition Current Condition Evaluation Date 04/30/19 Treatment Diagnosis CHF exacerbation, BLE edema, difficulty in walking Onset Date 04/29/19 Precautions Other Precautions falls risk Weight Bearing Status Weight Bearing Status Full Weight Bearing M3 PT-IP Subjective Start: 04/30/19 09:23 Freq: NEEDED Status: Active Protocol: Document 05/01/19 15:35 [facility] (Rec: 05/01/19 16:43 [facility] [id number]) Subjective Physical Therapy Visit Type Type Treatment Note Visit Start Time 15:35 Visit Stop Time 15:55 Total Visit Minutes 20 Number of SAP HANA ARCHITECT Visits 1 Physical Therapy Visit Comments Patient Comments Pt is tired but willing to participate with therapy Patient Goals Go home M4 PT-IP Mobility and Gait Start: 04/30/19 09:23 Freq: NEEDED Status: Active Protocol: Document 05/01/19 15:35 [facility] (Rec: 05/01/19 16:43 [facility] [id number]) PT-Bed Mobility Assessment Rolling Type of Rolling Roll to Right Level of Assist Independent Supine to Sit Supine to Sit Independent Scooting Scooting to Edge of Bed Minimal Assistance PT-Transfer Assessment Sit to and From Stand Sit to and from Stand Contact Guard Assistance,1 Person Assistance,Use of Upper Extremities Equipment Orthotic/Prosthetic Devices or Brace: No Transfers Transfer Destination Chair Transfer Technique pt ambulated with FWW Transfer Ability Level of Assist Contact Guard Assistance Comments Mobility Comments Pt needed Min A to scoot to EOB to prevent scrotum pain draw sheet was pulled as pt scooted towards EOB. Gait Assessment Gait Gait Assistance Required: Contact Guard Assist Distance (Feet) 160 Able to Maintain Weight Bearing Status Yes During Gait Assistive Devices Assistive Device Gait Belt,Front Wheeled Walker Orthotic/Prosthetic Devices or Brace: No Gait Deviations General Gait Pattern Antalgic,Decreased Stride Length,Decreased Feet Clearance,Flexed Trunk,Wide Based Gait Factors Limiting Gait Function Factors Limiting Gait Function Decreased Activity Tolerance, Decreased Sensation,Decreased Strength,Pain,Poor Balance Comments Gait Comments Pt increased gait requiring cues to keep left foot inside walker as pt has wide based gait and externally rotated hip. M5 PT-IP Objective Assessments Start: 04/30/19 09:23 Freq: NEEDED Status: Active Protocol: Document 04/30/19 10:35 AW (Rec: 04/30/19 11:18 AW [id number]) Orientation Orientation/Cognition Level of Alertness Alert Orientation Name,Date,Place,Situation Language Function Ability Hard of Hearing Safety Awareness Understands Safety Issues Memory Description No Deficits Noted Gross Range of Motion Upper Extremity ROM Assessment Left Impaired Impairments left shoulder limited in overhead movement. Lower Extremity ROM Assessment Bilaterally Impaired Impairments secondary to edema, right worse than left Strength Upper Extremity Strength Assessment Bilaterally Impaired Lower Extremity Strength Assessment Bilaterally Impaired Comments Strength Comments Pt can move LUE overhead, but unable to maintain position - left hand fell onto head. Bilateral hands affected by neuropathy. Pt wears gloves often due to poor temperature regulation. Notes he frequently drops items. Impaired lumber checker strength bilaterally - left worse than right. BLE hip flexion 3/5, knee extension 4/5, ankle DF 4/5. Coordination Assessment Gross Coordination Gross Coordination WNL Sensation Assessment Sensation Gross Sensation Right UE Impaired,Left UE Impaired,Right LE Impaired, Left LE Impaired Light Touch Impaired Sensation Description Numbness,Tingling,Coldness Comments Sensation Comments Neuropathy affects bilateral hands in glove distribution. Pt reports coldness and tingling/numbness. Bilateral plantar feet also affected with tingling/impaired light touch. M6 PT-IP Treatment Start: 04/30/19 09:23 Freq: NEEDED Status: Active Protocol: Document 04/30/19 10:35 AW (Rec: 04/30/19 11:18 AW [id number]) Physical Therapy Treatment Education Education Provided Precautions,Safety Other Treatments Other Treatment Performed Educated pt on safe use of FWW , including attempts to maintain base of support within walker frame. M7 PT-IP Assessment and Plan Start: 04/30/19 09:23 Freq: NEEDED Status: Active Protocol: Document 05/01/19 15:35 [facility] (Rec: 05/01/19 16:43 [facility] [id number]) PT Summary Assessment and Plan Summary Impairments Pain,ROM,Strength,Balance, Sensation,Bed Mobility, Transfers,Gait,Activity Tolerance Assessment Summary Pt was Independent with bed mobility. Pt able to ambulate ~160ft using FWW/CGA. Goals Bed Mobility Goal Independent Transfer Goal Independent Gait Goal Standby Assistance Gait Distance 100 Other Goals up/down 1 step with CGA Days to Meet Goals 5 Frequency of Treatment Frequency Of Treatment Once a Day Treatment Plan Physical Therapy Treatment Plan Bed Mobility Training,Transfer Training,Gait Training, Therapeutic Exercise,Balance Retraining,Discharge Planning, Hot or Cold Pack,Neuromuscular Re-ed,Coordination Retraining ,Manual Therapy Other Recommendations and Next Treatment progress gait distance, trial Focus curb/step Recommendations To Nursing Amount of Assist Needed 1 Person Assist Discharge Recommendations PT Discharge Recommendations Home with Assistance,Home with / Assist,Home Health Equipment Needed for Home Before toilet riser, BSC, FWW. Ex- Discharge Chucho notes she can obtain all from [facility].
--- NOTE | 2019-05-01 16:31 | PC.NURSE ---
CBG checked @2336 . CBG 137, RN aware.
[2019-05-01] MEDS: MORPHINE 2 MG/ML INJ IV (17:38)
--- NOTE | 2019-05-01 17:40 | RT ---
Family brought in his home bipap machine. It is set up on his bedside table. Water in the humidifer and plugged in to a red outlet.
[2019-05-02] MEDS: ACETAMINOPHEN 325 MG TABLET 1000 MG PO (04:26)
[2019-05-02 04:33] VITALS: BP 116/84; PULSE 79; RESP 18; TEMP 36.6; O2SAT 100
[2019-05-02 05:38] LABS: Blood Urea Nitrogen 30 mg/dL (9-20); Calcium 7.6 mg/dL (8.4-10.2); Carbon Dioxide 32 mmol/L (22-32); Chloride 94 mmol/L (98-107); Estimated Glomerular Filt Rate > 60.0 mL/min (>60); Glucose 150 mg/dL (70-100); HEMOLYSIS < 15 (0-50); Magnesium 2.4 mg/dL (1.6-2.3); Potassium 4.2 mmol/L (3.4-5.1); Sodium 133 mmol/L (137-145)
[2019-05-02 08:00] VITALS: BP 97/61; PULSE 72; RESP 18; TEMP 36.1; O2SAT 98
[2019-05-02] MEDS: APIXABAN 5 MG TABLET PO (09:14)
[2019-05-02] MEDS: POTASSIUM CHLORIDE 20 MEQ TAB PO ×2 (09:14→12:04)
[2019-05-02] MEDS: CALCIUM CARBONATE 500 MG TAB PO (09:14)
[2019-05-02] MEDS: MORPHINE ER 30 MG TABLET 60 MG PO (09:14)
[2019-05-02] MEDS: ALLOPURINOL 300 MG TABLET PO (09:14)
[2019-05-02] MEDS: GABAPENTIN 600 MG TABLET PO (09:14)
[2019-05-02] MEDS: FERROUS GLUCONATE 324 MG TABLET PO (09:17)
[2019-05-02] MEDS: MORPHINE 2 MG/ML INJ IV (09:17)
[2019-05-02 09:24] VITALS: PULSE 68
[2019-05-02] MEDS: DIGOXIN 0.25 MG TABLET PO (09:24)
--- NOTE | 2019-05-02 10:19 | OT.IP.EVAL ---
Current Diagnoses Acute on chronic diastolic (congestive) heart failure (04/29/19) Past Medical History (Last Reviewed 04/29/19 @ 22:09 by CARLA Rose) Atrial fibrillation with controlled ventricular rate (Chronic) Chronic back pain (Chronic) Diabetes type 2, controlled (Chronic) Fatigue (Chronic) Gout (Chronic) Obstructive sleep apnea of adult (Chronic) Primary insomnia (Chronic) Prostate cancer (Chronic) Pulmonary embolism (Resolved) Surgical History (Last Reviewed 04/29/19 @ 22:10 by CARLA Rose) H/O hernia repair (Chronic) History of prostatectomy (Acute) Status post vasectomy (Chronic) Occupational Therapy Inpatient Evaluation/Re-Eval Document 05/02/19 10:03 [facility] (Rec: 05/02/19 10:19 [facility] [id number]) Medical Review Prior Functional Status Medical History Reviewed Yes Communication Able to make needs known, no known deficits, hard of hearing Mobility and Gait Pt reports he was able to ambulate household distances without AD until about a week ago. For community distances, he often used a 4WW or transport w/c when at hospital appointments. Activities of Daily Living and IADL's Until a week ago, pt reports he was independent with all ADL's. Pt has recently required assistance with dressing, toileting, bathing. His ex-, Chucho, lives with him and provides assistance as needed. She also helps with meals. Pt has not driven for years Prior Functional Level (Other details) Onset of increased BLE edema a week ago coincides with decreased independence with functional mobility and ADL's. Pt reports increased frequency of falls - now about once per month. Per Ex- on OT eval states assist pt with showering and LB dressing needs for ADL's at home. Social History Household Members significant other,children Living Arrangements House Number of Floors (Floors) One Floor Number of Stairs To Enter/Railing? 1 CLAUDIA with no railing, but there is a banister for support. Old ramped entry available but unsafe. Home Environment Standard Height Toilet,Walk in Shower,Tub/Shower,Ramp Home Equipment Four Wheel Walker,Quad Cane, Straight Cane,Shower Seat with Backrest,Hand Held Shower Employment Status Retired Additional Social History Comment Pt lives with ex- Chucho, daughter Farhat, and roommate Neymar. Ex- is retired and available to assist as needed . M2 OT-IP Current Condition Start: 05/01/19 14:11 Freq: Status: Active Protocol: Document 05/02/19 10:03 [facility] (Rec: 05/02/19 10: [facility] [id number]) Occupational Therapy Current Condition Current Condition Evaluation Date 05/02/19 Treatment Diagnosis Acute CHF exacerbation Diagnosis Onset Date 04/29/19 M3 OT- IP Subjective and Pain Start: 05/01/19 14:11 Freq: Status: Active Protocol: Document 05/02/19 10:03 [facility] (Rec: 05/02/19 10: [facility] [id number]) OT- Subjective Occupational Therapy Visit Type Type Initial Evaluation Visit Start Time 09:35 Visit Stop Time 10:00 Total Visit Minutes 25 Occupational Therapy Visit Comments Patient Comments Pt agreeable to talk about OT needs for OT eval. M4 OT- IP ADL's Start: 05/01/19 14:11 Freq: Status: Active Protocol: Document 05/02/19 10:03 [facility] (Rec: 05/02/19 10: [facility] [id number]) OT ADL-Dressing General Eval Lower Body Dressing Ability Maximum Assistance Areas Needing Assistance Socks Assistive Devices Dressing Assistive Devices Supply Assistant,Sock Aid Comments OT Dressing Comments Prior pt has been MAX A for socks and compression stocking needs. Able to educate pt on socks aid and motorcycle service technician use and technique for pt's ex- to help put on compression stockings but turning the stockinng inside out at the heel first and slip on over his heel and then turn it inside out. In addition may want to babak stocking while in bed to increase safety and body mechanics for pt's ex-. Pt's ex- saw demonstration but did not want to any hands on training. Pt's ex- to get motorcycle service technician and sock aid from [employer] OT ADL-Toileting Comments OT Toileting Comments Able to recommend getting BSC to be placed over the toilet OT ADL-Bathing Comments OT Bathing Comments Prior ex- assisted for showering needs, therefore nursing to assist pt for bathing prior to discharge today. M6 OT- IP Functional Cognition Start: 05/01/19 14:11 Freq: Status: Active Protocol: Document 05/02/19 10:03 [facility] (Rec: 05/02/19 10:19 [facility] [id number]) Cognitive Factors Limiting Selfcare Function Cognitive Ability Level of Alertness Alert Patient Orientation Name,Place,Situation Attention Span Ability Capable of Focused Attention, Capable of Sustained Attention Ability to Follow Commands Able to Follow One Step Commands Memory Description Short Term Impaired Safety Awareness Underestimates Need for Assistance Cognitive Comments Cognitive Assessment Comments Pt needing concrete simple commands to follow. Pt gets easily distracted. Pt needing step by step vc for new task learning -use of sock aid. M7 OT- IP Mobility and Balance Start: 05/01/19 14:11 Freq: Status: Active Protocol: Document 05/02/19 10:03 [facility] (Rec: 05/02/19 10:19 [facility] [id number]) OT-Transfer Assessment Comments Mobility Comments See PT notes for mobility needs. Pt not wanting to get up yet and ex- states feels comfortable to assist pt for all needs. Recommended pt may want to get bed rail as prior slipped off his bed, this would help with mobility needs . OT- Balance Assessment Sitting Balance and Reactions Static Sitting Balance Ability Good Dynamic Sitting Balance Ability Fair M8 OT- IP Objective Assessments Start: 05/01/19 14:11 Freq: Status: Active Protocol: Document 05/02/19 10:03 [facility] (Rec: 05/02/19 10:19 [facility] [id number]) OT Gross Range of Motion Upper Extremity Range of Motion Assessment Left Impaired OT Strength Comments Strength Comments LUE weaker than RUE. Pt wears gloves on his hands due to cold hands. M9 OT- IP Assessment and Plan Start: 05/01/19 14:11 Freq: Status: Active Protocol: Document 05/02/19 10:03 [facility] (Rec: 05/02/19 10:19 [facility] [id number]) OT Summary Assessment and Plan Potential Rehabilitation Potential Fair Analytic Complexity at Evaluation Low Summary OT Impairments Strength,Balance,Functional Cognition,Functional Mobility, Dressing,Toileting,Bathing, Toilet Transfers,Shower Transfers Progress Towards Goals Progressing Toward Goals Assessment Summary Pt to be discharging home today. Pt's ex- to sheepskin pickler equipment needs at [facility] and states feels capable to assist pt for needs as feels like her is doing better overall and prior was assisting him for ADl needs. Recommend pt home with assist and home health. Goals Patient/Caregiver Education Goal Demonstrate Energy Conservation and Pacing, Caregiver Independent Assisting Patient Days to Meet Goals 1 Frequency of Treatment Frequency Of Treatment Once a Day Treatment Plan OT Treatment Plan Patient/Family Education, Discharge Planning Discharge Recommendations OT Discharge Recommendations Home with Assistance,Home Health Home Equipment Needs BSC, FWW, motorcycle service technician, sock aid , bed rail, baby monitor
--- NOTE | 2019-05-02 11:15 | PT.IPTN ---
Current Diagnoses Acute on chronic diastolic (congestive) heart failure (04/29/19) Physical Therapy Treatment Note M2 PT-IP Current Condition Start: 04/30/19 09:23 Freq: NEEDED Status: Active Protocol: Document 04/30/19 10:35 [facility] (Rec: 04/30/19 11:18 [facility] [id number]) Physical Therapy Current Condition Current Condition Evaluation Date 04/30/19 Treatment Diagnosis CHF exacerbation, BLE edema, difficulty in walking Onset Date 04/29/19 Precautions Other Precautions falls risk Weight Bearing Status Weight Bearing Status Full Weight Bearing M3 PT-IP Subjective Start: 04/30/19 09:23 Freq: NEEDED Status: Active Protocol: Document 05/02/19 08:30 [facility] (Rec: 05/02/19 11:13 [facility] [id number]) Subjective Physical Therapy Visit Type Type Treatment Note Visit Start Time 08:30 Visit Stop Time 09:02 Total Visit Minutes 32 Number of FOOD CHECKER Visits 0 Physical Therapy Visit Comments Patient Comments Pt willing to hold breakfast for PT. I want to go home Patient Goals Go home Therapy Pain Assessment Pain Present Pain Present Pain Reported Location Left Shoulder Intensity 5 M4 PT-IP Mobility and Gait Start: 04/30/19 09:23 Freq: NEEDED Status: Active Protocol: Document 05/01/19 15:35 [facility] (Rec: 05/01/19 16:43 [facility] [id number]) PT-Bed Mobility Assessment Rolling Type of Rolling Roll to Right Level of Assist Independent Supine to Sit Supine to Sit Independent Scooting Scooting to Edge of Bed Minimal Assistance PT-Transfer Assessment Sit to and From Stand Sit to and from Stand Contact Guard Assistance,1 Person Assistance,Use of Upper Extremities Equipment Orthotic/Prosthetic Devices or Brace: No Transfers Transfer Destination Chair Transfer Technique pt ambulated with FWW Transfer Ability Level of Assist Contact Guard Assistance Comments Mobility Comments Pt needed Min A to scoot to EOB to prevent scrotum pain draw sheet was pulled as pt scooted towards EOB. Gait Assessment Gait Gait Assistance Required: Contact Guard Assist Distance (Feet) 160 Able to Maintain Weight Bearing Status Yes During Gait Assistive Devices Assistive Device Gait Belt,Front Wheeled Walker Orthotic/Prosthetic Devices or Brace: No Gait Deviations General Gait Pattern Antalgic,Decreased Stride Length,Decreased Feet Clearance,Flexed Trunk,Wide Based Gait Factors Limiting Gait Function Factors Limiting Gait Function Decreased Activity Tolerance, Decreased Sensation,Decreased Strength,Pain,Poor Balance Comments Gait Comments Pt increased gait requiring cues to keep left foot inside walker as pt has wide based gait and externally rotated hip. M5 PT-IP Objective Assessments Start: 04/30/19 09:23 Freq: NEEDED Status: Active Protocol: Document 04/30/19 10:35 AW (Rec: 04/30/19 11:18 AW [id number]) Orientation Orientation/Cognition Level of Alertness Alert Orientation Name,Date,Place,Situation Language Function Ability Hard of Hearing Safety Awareness Understands Safety Issues Memory Description No Deficits Noted Gross Range of Motion Upper Extremity ROM Assessment Left Impaired Impairments left shoulder limited in overhead movement. Lower Extremity ROM Assessment Bilaterally Impaired Impairments secondary to edema, right worse than left Strength Upper Extremity Strength Assessment Bilaterally Impaired Lower Extremity Strength Assessment Bilaterally Impaired Comments Strength Comments Pt can move LUE overhead, but unable to maintain position - left hand fell onto head. Bilateral hands affected by neuropathy. Pt wears gloves often due to poor temperature regulation. Notes he frequently drops items. Impaired human resources project manager strength bilaterally - left worse than right. BLE hip flexion 3/5, knee extension 4/5, ankle DF 4/5. Coordination Assessment Gross Coordination Gross Coordination WNL Sensation Assessment Sensation Gross Sensation Right UE Impaired,Left UE Impaired,Right LE Impaired, Left LE Impaired Light Touch Impaired Sensation Description Numbness,Tingling,Coldness Comments Sensation Comments Neuropathy affects bilateral hands in glove distribution. Pt reports coldness and tingling/numbness. Bilateral plantar feet also affected with tingling/impaired light touch. M6 PT-IP Treatment Start: 04/30/19 09:23 Freq: NEEDED Status: Active Protocol: Document 05/02/19 08:30 [facility] (Rec: 05/02/19 11:14 [facility] [id number]) Physical Therapy Treatment Other Treatments Other Treatment Performed Stair and sit<>stand training. M7 PT-IP Assessment and Plan Start: 04/30/19 09:23 Freq: NEEDED Status: Active Protocol: Document 05/02/19 08:30 [facility] (Rec: 05/02/19 11:13 [facility] [id number]) PT Summary Assessment and Plan Potential Rehabilitation Potential Good Status of Condition at Evaluation Evolving Summary Assessment Summary Pt was up with BURN OUT SCARFING OPERATOR at start of therapy, standing with SBA. Pt was able to walk with CGA> SBA with walker. He had difficulty with normal stairs and was unsafe after 2nd step due to what appeared weak Quads and Gluteal muscles. Pt is weak on the LUE; therefore making stair ambulation more difficult requiring sidestepping down stairs. Railing is on the R going up stairs; therefore more practice is needed and increase of therapy to 2x/day in order to get pt strong and safe with 1 step for DC home. Goals Bed Mobility Goal Independent Transfer Goal Independent Gait Goal Standby Assistance Gait Distance 100 Other Goals up/down 1 step with CGA Days to Meet Goals 5 Frequency of Treatment Frequency Of Treatment Twice a Day Treatment Plan Physical Therapy Treatment Plan Bed Mobility Training,Transfer Training,Gait Training, Therapeutic Exercise,Balance Retraining,Discharge Planning, Hot or Cold Pack,Neuromuscular Re-ed,Coordination Retraining ,Manual Therapy Other Recommendations and Next Treatment Focus on Step and sit<>stand Focus training, Quad & Gluteal strengthening. Ambulation is safe with CGA and endurance appears good. Recommend caregiver be present with stair training (for 1 step). Recommendations To Nursing Amount of Assist Needed 1 Person Assist Discharge Recommendations PT Discharge Recommendations Home with Assistance,Home with 24/7 Assist,Home Health Equipment Needed for Home Before toilet riser, BSC, FWW. Ex- Discharge Chucho notes she can obtain all from [employer].
--- NOTE | 2019-05-02 11:32 | CM.DPC ---
DCP; continued: Case discussed in Team Rounds and Dr. Galvez, now on as hospitalist, said she did see pt, he is today doing well and appropriate for d/c to home setting. HHS had been planned but a call to all 3 agencies shows that [facility] is not contacted with any and they do not consider single case agreements. All 3 agencies also say that they are able to work with the other [facility] [employer]/medicaid and with Medicaid only but not with [employer]. Will update Dr. Galvez when she is available. MARYLIN Cunningham is updated as well as pt. He does note that he has been with [facility] for 10 years and has a constant struggle to get care covered. He is connected to [employer] and has a cm who has over the years assisted him with items he needs. He has the contact number and name at home and he or Kamille can check in with her as need be. Kamille is currently at [facility] getting DME, offered for free to residents in need in [place]. Pt will continue his OUTPT treatments and clinic visits. Pt says he is pleased he will be going home today. Will try to check in with Kamille when she arrives to pick him up. Home today: No HH as no insurance coverage for [facility].
[2019-05-02] MEDS: dexAMETHasone 4 MG TABLET PO (11:54)
[2019-05-02 12:00] VITALS: BP 102/65; PULSE 71; RESP 16; TEMP 36.3; O2SAT 98
[2019-05-02] MEDS: FUROSEMIDE 40 MG/4 ML VIAL IV (12:04)
--- NOTE | 2019-05-02 13:09 | PC.NURSE ---
Assess-Pt is A&Ox3. Given 2mg of iv morphine for pain of 12/26. Pt worked with physical therapy and ambulated in the halls. He will be discharged back to home and his x will help care for him. Pt has swollen testicles and penis, which is 3+ scrotal edema. Pt has an odor to his body, pt does have cancer. He had a large bowel movment earlier this morning. Eating well at meals and sitting up comfortably in chair.
--- NOTE | 2019-05-03 07:25 | PM.DS.1 ---
History of Present Illness History of Present Illness Date Patient Seen: 05/03/19 Chief complaint: swelling in legs and groin Narrative: Mr. Roel Jansen is a 58-year-old male patient with a history significant for for atrial fibrillation with controlled rate, congestive heart failure with preserved ejection fraction, non insulin dependent diabetes type 2, gout, history of DVT with pulmonary embolism and prostate cancer with metastases presents to the ER for worsening peripheral edema. The patient reports that at baseline he is able to walk upstairs in several blocks without dyspnea and over the last 2 weeks has developed progressive weakness, edema and activity intolerance related to worsening shoulder and hip pain. His edema and percussed into the groin and scrotum prompting presentation for care today. He has had an associated 30 lb weight gain in 1 week. The patient has a history of prostate cancer and has completed 9 cycles of chemotherapy in 9 treatments radiation therapy. He has known metastases to the bone. Patient does have a history of cardiac disease but denies complaints of chest pain and reports that he is no longer aware of his irregular heartbeat having atrial fibrillation for 10 years and is anticoagulated on Eliquis. Reports no complaints of abnormal bleeding, blood in the stool or bruising. He reports no recent complaints of illness or flu symptoms, fevers or chills. He denies shortness of breath, cough or wheeze. He denies complaints of abdominal pain though he had a brief episode of nausea earlier today that lasted minutes without vomiting. He reports no complaints of constipation in fact reports bowel movements on the loose side. Patient had a fall this morning sliding office bed onto his knees, no loss consciousness, or change in characteristic chronic back, left shoulder and right hip pain. He states he goes to [facility] gets his radiation at [facility] in [place]. Upon arrival in the ER the patient is afebrile with temperature 97.2?, heart rate 97 in atrial fibrillation with a blood pressure of 133/85, respirations 19 saturation 100% on room air. A chest x-ray was taken which notes nonspecific interstitial prominence throughout all lung soto consistent with vascular congestion and chronic the elevated right hemidiaphragm. CT of the chest abdomen and pelvis reveals right basilar opacities consistent with atelectasis, mediastinal adenopathy, 11 mm adrenal nodule, prominent aortic caval inguinal and iliac adenopathy, lobulated soft tissue densities in the right lower quadrant which may represent mesenteric mass or adenopathy, multiple sclerotic foci within the axial and appendicular skeleton consistent with metastatic static disease. Twelve lead EKG is obtained which finds atrial fibrillation with controlled ventricular rate 89, no ectopy, inverted T-wave in V2 without ST changes. On laboratory analysis the patient has white count of 8.8, hemoglobin of 10.3 and hematocrit 32.9 and platelets of 222 with neutrophilia at 89%. On coagulations he has a PT of 15, INR of 1.3 and PTT of 31. His electrolytes are within normal range with a BUN of 22 and creatinine is 0.4. His nonfasting glucose is 184. Liver functions include total bilirubin of 0.7, AST of 39, ALT of 33 and alkaline phosphatase elevated at 135. On cardiac panel he has a total CK of 131 CK-MB of 2.82, CK index of 2.2 and troponin that is less than 0.012. His BMP is 172. Digital level is 0.6. His procalcitonin is less than 0.05 and urinalysis reveals sediment with no sign of infection. In the ER the patient is given Lasix 60 mg IV. Discharge Providers Provider Date of admission: 04/29/19 19:59 Discharge Date: 05/02/19 Primary care physician: Damien López MD Consults: 04/29/19 17:18 Consult to Respiratory Therapy Evaluate & Treat Comment: Physician Instructions: Evaluate and treat 04/29/19 21:04 Consult to Dietitian, Adult Routine Comment: Reason For Exam: CHF exacerbation, fluid restriction, obese, cancer 04/29/19 21:05 Consult to Discharge Planning Routine Comment: Consult to Occupational Therapy Evaluate & Treat Comment: Lt shoulder, Rt hip pain, prostate ca w/mets Physician Instructions: Evaluate and treat 04/29/19 21:06 Consult to Physical Therapy Evaluate & Treat Comment: Lt shoulder, Rt hip pain, prostate ca w/mets Physician Instructions: Evaluate and Treat 04/29/19 21:11 Consult to Respiratory Therapy Evaluate & Treat Comment: Right heart failure, MELVIN bringing BiPAP from home Physician Instructions: Evaluate and treat 04/29/19 21:33 Consult to Dietitian, Adult Routine Comment: Reason For Exam: assessed at risk Discharge provider: Breann Galvez MD Summary Hospital Course Discharge Diagnosis: 1. Acute Decompensated Congestive Heart Failure with preserved Systolic Function 2. Perepheral Edema 3. Type 2 Diabetes, not on insulin 4. Gout 5. History of PE/DVT 6. History of Metastatic Prostate Cancer Hospital Course: Patient was admitted to the hospital after a 30 pound weight gain over the prior week. He was unable to ambulate secondary to significant edema. The patient was admitted and given several days of high dose lasix with excellent diuresis. Patient had over 8 kilo weight loss. He was seen by PT/OT and able to ambulate. The patient lives with his ex- who is his home health care provider. He was improved and deemed appropriate for discharge home. Patient will be referred to home health RN/PT/OT. He will be following up with his Oncologist next week for further evaluation. Status at Discharge Cognitive/behavioral status at discharge: oriented Functional status at discharge: uses cane/walker Overall status at discharge: patient is back to baseline Time Spent with Patient Time spent: Less than 30 minutes Exam Vital Signs (past 8 hours): Oxygen Delivery Method Room Air Oxygen Flow Rate 0 Narrative Exam Narrative: Pleasant male in NAD Lungs: decreased breath sounds but clear to auscultation CV: RRR Nl Sl S2 Abd: distended, soft/ non tender Ext: no lower extremity edema, some pitting edema of the thighs Objective Labs Result Diagrams: 05/01/19 05:05 05/02/19 04:55 Discharge Plan Discharge Plan Patient Disposition: Home Health Service Transfer to: [facility] Discharge Med Rec/Prescriptions Prescriptions: New furosemide [Lasix] 40 mg tablet 40 mg PO BID 30 Days Qty: 60 RF: 0 dexamethasone [Decadron] 4 mg tablet 4 mg PO BID Qty: 60 RF: 0 Continued dexamethasone 4 mg Tablet 4 mg PO Q12H RF: 0 ferrous gluconate 324 mg (37.5 mg iron) Tablet 324 mg PO DAILY RF: 0 metformin 500 mg Tablet 500 mg PO BID RF: 0 ondansetron HCl 8 mg Tablet 8 mg PO BID PRN (Reason: Nausea) RF: 0 prochlorperazine maleate 10 mg Tablet 10 mg PO Q6-8H RF: 0 calcium carbonate [Calcium 500] 500 mg calcium (1,250 mg) Tablet 500 mg DAILY RF: 0 acetaminophen 325 mg Tablet 650 mg PO Q6H PRN (Reason: Pain (Scale Score 1-3)) RF: 0 potassium chloride 20 mEq Tablet,Er Particles/Crystals 20 meq PO TID RF: 0 loratadine [Claritin] 10 mg Tablet 10 mg PO DAILY RF: 0 Eliquis 5 mg Tablet 5 mg PO BID RF: 0 (DME) Respironics Dreamstation BIPAP Qty: 1 RF: 0 allopurinol 300 mg tablet 300 mg PO DAILY RF: 0 digoxin 250 mcg tablet 0.25 mg PO DAILY RF: 0 gabapentin 600 mg tablet 600 mg PO TID RF: 0 morphine 60 mg capsule, ER multiphase 24 hr 60 mg PO TID RF: 0 morphine 15 mg capsule 15 mg PO .Q 4 H PRN (Reason: bone pain) RF: 0 Discontinued furosemide 20 mg Tablet 40 mg PO DAILY RF: 0 Follow up/Referrals: Damien López MD [Primary Care Provider] - Provider Discharge Instructions Diet: Low-fat and Low-sodium Activity: as tolerated Oxygen: not indicated Visit Report/Discharge Packet Instructions: Edema (Alternative Therapy), Furosemide Discharge Data Primary Care Provider: Damien López Discharges patient from system. Discharge Date/Time: 05/02/19 14:25
== END 2019-05-02 14:25 | disposition home or self-care (01) | DRG 194 ==
LOC: ED 17:06 → AC 20:20
PROVIDERS: Internal Medicine; Admitting Provider Nurse Practitioner Adult Health; Emergency Provider Nurse Practitioner Family; PCP Internal Medicine; Visit Provider Nurse Practitioner Adult Health
DX: I50.33 Acute on chronic diastolic (congestive) heart failure (principal); I48.21 Permanent atrial fibrillation; C61 Malignant neoplasm of prostate; C79.51 Secondary malignant neoplasm of bone; D50.9 Iron deficiency anemia, unspecified; Z79.01 Long term (current) use of anticoagulants; M10.9 Gout, unspecified; G47.33 Obstructive sleep apnea (adult) (pediatric); E66.9 Obesity, unspecified; Z68.35 Body mass index [BMI] 35.0-35.9, adult; Z87.891 Personal history of nicotine dependence; Z86.711 Personal history of pulmonary embolism; Z86.718 Personal history of other venous thrombosis and embolism
CPT/HCPCS: 36415; 51701; 71045; 71260; 74177; 80048; 80053; 80061; 80162; 81001; 82140; 82550; 82553; 82962; 83036; 83605; 83735; 83880; 84145; 84439; 84443; 84484; 84550; 85025; 85610; 85730; 93005; 93307; 96372; 96374; 96375; 96376; 97116; 97162; 97165; 99285; J1940; J2270; Q9967